=== PATIENT | female | born 1975 | race Caucasian/White ===

== ENCOUNTER 2020-02-05 11:58 | Outpatient (CLI) | payer OTHER, SELFPAY ==
--- NOTE | 2020-02-05 | ECG_ITS ---
Measurements Intervals [place] Rate: 77 P: 59 PA: 145 QRS: 62 QRSD: 83 T: 49 QT: 370 QTc: 420 Interpretive Statements SINUS RHYTHM DELAYED PRECORDIAL R/S TRANSITION MINIMAL Q WAVES- INFERIOR LEADS BORDERLINE ECG Electronically Signed On 02-05-2020 13:21:04 CDT by Jakob Ly D.O.
--- NOTE | ~2020-02-05 | XR_ITS ---
EXAMINATION: XR chest 2V EXAM DATE: 02/05/2020 12:21 INDICATION: Chest pain. TECHNIQUE: Frontal and lateral projections of the chest obtained and reviewed. Comparison is made to prior examination from 07/20/2018. FINDINGS: The lungs are clear. There are no pleural effusions. The cardiomediastinal silhouette is within normal limits. There is no pneumothorax suspected. The bones and soft tissues are unremarkab le. There are cholecystectomy clips. There is no significant interval change. IMPRESSION: No acute cardiopulmonary findings. Reviewed, dictated and finalized at location B.
[2020-02-05 13:26] LABS: Basophils Percent Auto 0.5 % (0.2-1.2); Eosinophils Absolute Auto 0.1 K/mm3 (0-0.3); Eosinophils Percent Auto 1.4 % (0-4.4); Hematocrit 42.5 % (37.0-47.0); Hemoglobin 13.4 g/dL (12.0-15.0); Immature Granulocyte Absolute 0.02 K/mm3 (0.00-0.031); Immature Granulocyte Percent A 0.2 % (0-0.5); Lymphocytes Absolute Auto 2.99 K/mm3 (0.9-3.2); Lymphocytes Percent Auto 34.5 % (18.3-44.2); Mean Corpuscular HGB Conc 31.5 g/dl (32-36); Mean Corpuscular Volume 88.9 fl (80-100); Monocytes Absolute Auto 0.4 K/mm3 (0.1-0.6); Monocytes Percent Auto 4.3 % (2.6-8.5); Neutrophils Absolute Auto 5.1 K/mm3 (1.3-6.7); Neutrophils Percent Auto 59.1 % (45.5-73.1); Platelet Count Result 360 k/mm3 (150-375); Red Blood Count 4.78 M/mm3 (4.2-5.4); Red Cell Distribution Width 13.3 % (11.5-14.5); White Blood Count 8.7 K/mm3 (4.5-10.0)
[2020-02-05 13:38] LABS: Blood Urea Nitrogen 12 mg/dL (7-17); Calcium 10.2 mg/dL (8.4-10.2); Carbon Dioxide 28 mmol/L (22-30); Chloride 102 mmol/L (98-107); Estimated Glomerular Filt Rate > 60; Glucose 91 mg/dL (65-105); Potassium 4.6 mmol/L (3.4-5.0); Sodium 137 mmol/L (137-145)
[2020-02-05 14:09] LABS: Thyroid Stimulating Hormone 0.446 uIU/mL (0.465-4.680)
== END 2020-02-05 11:59 | disposition home or self-care (01) ==
PROVIDERS: PCP Family Medicine; Visit Provider Nurse Practitioner Family
DX: R07.9 Chest pain, unspecified (principal)
CPT/HCPCS: 36415; 71046; 80048; 84443; 85025; 93005

== ENCOUNTER 2020-02-19 09:33 | Outpatient (CLI) | payer OTHER, SELFPAY ==
--- NOTE | 2020-02-19 09:45 | EST_ITS ---
Patient Info Name: Jamee Valentine Age: 44 years : 1975 Gender: Female Ht: 64 in Wt: 231 lbs BSA: 2.23 m2 Exam Date: 02/19/2020 10:20 AM Exam Location: [facility] [place] Stress Patient Status: Outpatient Admit Date: 02/19/2020 Staff Ordering Physician: Carolyne Ferris NP Attending Provider: Carolyne Ferris NP Exercise Technologist: Jana Plata RDCS Exercise Physician: Jakob Ly DO Exam Type: CA stress test treadmill Study Info Indications R94.31 - Abnormal electrocardiogram ECG EKG R07.9 - Chest pain, unspecified A treadmill exercise stress test was performed. Summary 1. 1. Negative Stef exercise stress test for ischemic ST changes by ECG criteria. 2. 2. Reduced functional capacity, achieving 8 METs of workload. 3. 3. Baseline hypertension with hypertensive response to exercise. 4. 4. Appropriate HR response to exercise. 5. 5. Appropriate HR recovery at 1 minute post exercise. 6. 6. No imaging with stress testing. 7. 7. Patient informed of the above results. Protocol: Stef Stress ECG Details Stage: REST Duration (min): 5 min : 42 sec Speed (mph): 0.0 Grade (%): 0 HR (bpm): 87 SBP (mmHg): 141 DBP (mmHg): 83 METS: --- Stage: REST Duration (min): 13 min : 17 sec Speed (mph): 0.0 Grade (%): 0 HR (bpm): 86 SBP (mmHg): 141 DBP (mmHg): 83 METS: --- Stage: STAGE 1 Duration (min): 1 min : 0 sec Speed (mph): 1.7 Grade (%): 10 HR (bpm): 123 SBP (mmHg): 141 DBP (mmHg): 83 METS: --- Stage: STAGE 1 Duration (min): 2 min : 0 sec Speed (mph): 1.7 Grade (%): 10 HR (bpm): 131 SBP (mmHg): 141 DBP (mmHg): 83 METS: --- Stage: STAGE 1 Duration (min): 3 min : 0 sec Speed (mph): 1.7 Grade (%): 10 HR (bpm): 133 SBP (mmHg): 163 DBP (mmHg): 78 METS: --- Stage: STAGE 2 Duration (min): 1 min : 0 sec Speed (mph): 2.5 Grade (%): 12 HR (bpm): 143 SBP (mmHg): 163 DBP (mmHg): 78 METS: --- Stage: STAGE 2 Duration (min): 2 min : 0 sec Speed (mph): 2.5 Grade (%): 12 HR (bpm): 150 SBP (mmHg): 174 DBP (mmHg): 83 METS: --- Stage: STAGE 2 Duration (min): 3 min : 0 sec Speed (mph): 2.5 Grade (%): 12 HR (bpm): 152 SBP (mmHg): 174 DBP (mmHg): 83 METS: --- Stage: STAGE 3 Duration (min): 0 min : 41 sec Speed (mph): 3.4 Grade (%): 14 HR (bpm): 166 SBP (mmHg): 174 DBP (mmHg): 83 METS: --- Stage: RECOVERY Duration (min): 0 min : 18 sec Speed (mph): 1.5 Grade (%): 0 HR (bpm): 165 SBP (mmHg): 197 DBP (mmHg): 88 METS: --- Stage: RECOVERY Duration (min): 1 min : 18 sec Speed (mph): 0.0 Grade (%): 0 HR (bpm): 130 SBP (mmHg): 210 DBP (mmHg): 72 METS: --- Stage: RECOVERY Duration (min): 2 min : 18 sec Speed (mph): 0.0 Grade (%): 0 HR (bpm): 108 SBP (mmHg): 210 DBP (mmHg):
== END 2020-02-19 09:34 | disposition home or self-care (01) ==
LOC: ANHCARD 09:36
PROVIDERS: PCP Family Medicine; Visit Provider Nurse Practitioner Family
DX: R07.9 Chest pain, unspecified (principal); R94.31 Abnormal electrocardiogram [ECG] [EKG]
CPT/HCPCS: 93017

== ENCOUNTER → 2020-06-20 14:40 | Outpatient (CLI) | payer BC, SELFPAY ==
--- NOTE | ~2020-06-20 | XR_ITS ---
EXAMINATION: XR chest 2V EXAM DATE: 06/20/2020 14:52 INDICATION: J98.8 - Other specified respiratory disorders, cp, cough, sob . TECHNIQUE: Frontal and lateral projections of the chest obtained and reviewed. Comparison is made to prior examination from 02/05/2020. FINDINGS: The lungs are clear. There are no pleural effusions. The cardiomediastinal silhouette is within normal limits. There is no pneumothorax suspected. The bones and soft tissues are unremarkab le. IMPRESSION: No acute cardiopulmonary findings. Reviewed, dictated and finalized at location B. ESSING MGR
== END ==
PROVIDERS: PCP Family Medicine; Visit Provider Nurse Practitioner Family
DX: R07.89 Other chest pain (principal); R05 Cough; R06.02 Shortness of breath
CPT/HCPCS: 71046

== ENCOUNTER 2020-08-26 17:38 | Outpatient (CLI) | payer BC, SELFPAY ==
--- NOTE | ~2020-08-26 | CT_ITS ---
EXAMINATION: CTA chest PE protocol DATE: 08/26/2020 18:34 INDICATION: Shortness of breath TECHNIQUE: Computed tomography (CT) pulmonary angiogram of the chest was performed with 100 mL Omnipa que-350 intravenous contrast. Additional 3D reconstructions utilizing coronal maximum intensity proje ction (MIP) were performed. Automated exposure control and iterative reconstruction technique were em ployed. The dose-length product was 958.80 mGy-cm. COMPARISON: None FINDINGS: Good contrast opacification of the pulmonary arteries. There is moderate streak artifact from dense c ontrast in the superior vena cava and right atrium. Mild to moderate scattered respiratory motion art ifact. . This mildly decreases sensitivity in the smaller subsegmental pulmonary arteries. No definit gunnar pulmonary embolism. Diffuse bilateral mosaic attenuation the lungs with mild groundglass opacitie s with small lung volumes suggesting this results from poor inspiratory effort with small subsegmenta l regions of more lucent air trapping related to small airway disease. No septal line thickening to s uggest pulmonary edema. No pleural effusion or pneumothorax. Heart size is normal. No pericardial eff usion. Thoracic aorta is normal in caliber with no dissection. No pathologically enlarged thoracic ly mphadenopathy. Cholecystectomy clips at the gallbladder fossa. Minimal thoracic spondylosis. IMPRESSION: 1. No pulmonary embolism. 2. Mosaic attenuation in the lungs likely related to poor inspiration with subsegmental air trapping related to small airway disease. Reviewed, dictated and finalized at location A. OLOGY TECHNOLOGIST IMPRESSION: 1. No pulmonary embolism. 2. Mosaic attenuation in the lungs likely related to poor inspiration with subs egmental air trapping related to small airway disease.
[2020-08-26 18:05] LABS: Basophils Percent Auto 0.3 % (0.2-1.2); Eosinophils Absolute Auto 0.2 K/mm3 (0-0.3); Eosinophils Percent Auto 1.8 % (0-4.4); Hematocrit 40.1 % (37.0-47.0); Hemoglobin 12.8 g/dL (12.0-15.0); Immature Granulocyte Absolute 0.03 K/mm3 (0.00-0.031); Immature Granulocyte Percent A 0.3 % (0-0.5); Lymphocytes Absolute Auto 3.57 K/mm3 (0.9-3.2); Mean Corpuscular HGB Conc 31.9 g/dl (32-36); Mean Corpuscular Hemoglobin 28.1 pg (26-34); Mean Corpuscular Volume 88.1 fl (80-100); Mean Platelet Volume 8.7 fl (7.4-10.4); Monocytes Absolute Auto 0.5 K/mm3 (0.1-0.6); Monocytes Percent Auto 4.9 % (2.6-8.5); Neutrophils Absolute Auto 5.9 K/mm3 (1.3-6.7); Neutrophils Percent Auto 57.7 % (45.5-73.1); Platelet Count Result 340 k/mm3 (150-375); Red Blood Count 4.55 M/mm3 (4.2-5.4); Red Cell Distribution Width 13.6 % (11.5-14.5); White Blood Count 10.2 K/mm3 (4.5-10.0)
[2020-08-26 18:17] LABS: Alanine Aminotransferase 23 U/L (4-35); Albumin Level 4.2 g/dL (3.5-5.1); Alkaline Phosphatase 38 U/L (38-126); Anion Gap 6 mmol/L (8-16); Aspartate Amino Transferase 24 U/L (14-36); Bilirubin,Total 0.2 mg/dL (0.2-1.3); Blood Urea Nitrogen 9 mg/dL (7-17); Calcium 9.3 mg/dL (8.4-10.2); Carbon Dioxide 29 mmol/L (22-30); Chloride 103 mmol/L (98-107); Estimated Glomerular Filt Rate > 60; Glucose 105 mg/dL (65-105); Potassium 3.9 mmol/L (3.4-5.0); Sodium 138 mmol/L (137-145)
== END 2020-08-26 17:39 | disposition home or self-care (01) ==
PROVIDERS: PCP Family Medicine; Visit Provider Family Medicine
DX: R05 Cough (principal); R06.02 Shortness of breath
CPT/HCPCS: 36415; 71275; 80053; 85025; Q9967

== ENCOUNTER 2020-09-09 09:50 | Outpatient (CLI) | payer BC, SELFPAY ==
--- NOTE | 2020-09-16 12:24 | WPDHOLTEREM ---
Holter/Event Monitor Holter/Event Monitor Date of procedure: 09/09/20 Procedure Type: 48 hour holter monitor Indications: Chest pain Conclusion: 1. 48 hour holter monitor on 09/09/20. 2. Underlying rhythm is sinus rhythm. HR range 61-141 bpm; average HR 87 bpm. 3. There are 3 premature supraventricular complexes. No supraventricular tachycardia. 4. There are 1,145 premature ventricular complexes. No ventricular tachycardia. 5. No sinoatrial or atrioventricular blocks. No significant pauses greater than 2 seconds. 6. Patient reports symptoms of fluttering, shortness of breath, chest heaviness which demonstrate sinus rhythm, HR range 83-121 bpm.
== END 2020-09-09 09:51 | disposition home or self-care (01) ==
PROVIDERS: PCP Family Medicine; Visit Provider Nurse Practitioner Family
DX: R07.89 Other chest pain (principal)
CPT/HCPCS: 93225; 93226

== ENCOUNTER → 2020-09-30 14:02 | Outpatient (CLI) | payer BC, SELFPAY ==
--- NOTE | ~2020-09-30 | US_ITS ---
EXAMINATION: US pelvic complete w TV DATE: 09/30/2020 14:21 INDICATION: Abnormal uterine bleeding. Right lower quadrant pain. Comparison:05/12/2016 TECHNIQUE: Multiple transabdominal sonographic images of the pelvis performed. FINDINGS: The uterus measures 8.7 x 2.3 x 3.1 cm. The endometrial complex measures 2 mm. The right ovary measures 1.5 x 1.4 x 1.7 cm and the left ovary measures 2.5 x 2.4 x 2.2 cm. There ar e small follicles in each ovary.Normal doppler signal in both ovaries. There is no free fluid in the pelvis. There are no abnormal masses seen on either side. IMPRESSION: 1. Normal pelvic ultrasound. Reviewed, dictated and finalized at location A. TRANSPORTATION MANAGER
== END ==
PROVIDERS: Visit Provider Obstetrics & Gynecology Gynecology
DX: N93.8 Other specified abnormal uterine and vaginal bleeding (principal)
CPT/HCPCS: 76830; 76856

== ENCOUNTER 2021-03-04 06:54 | Outpatient (CLI) | payer BC, SELFPAY ==
[2021-03-04 07:40] LABS: Hematocrit 38.8 % (37.0-47.0); Hemoglobin 12.3 g/dL (12.0-15.0); Mean Corpuscular HGB Conc 31.7 g/dl (32-36); Mean Corpuscular Hemoglobin 27.5 pg (26-34); Mean Corpuscular Volume 86.6 fl (80-100); Mean Platelet Volume 9.2 fl (7.4-10.4); Platelet Count Result 341 k/mm3 (150-375); Red Blood Count 4.48 M/mm3 (4.2-5.4); Red Cell Distribution Width 13.4 % (11.5-14.5); White Blood Count 9.1 K/mm3 (4.5-10.0)
[2021-03-04 07:50] LABS: Alanine Aminotransferase 25 U/L (4-35); Albumin Level 4.1 g/dL (3.5-5.1); Alkaline Phosphatase 53 U/L (38-126); Anion Gap 7 mmol/L (8-16); Aspartate Amino Transferase 22 U/L (14-36); Bilirubin,Total 0.4 mg/dL (0.2-1.3); Blood Urea Nitrogen 15 mg/dL (7-17); Calcium 9.2 mg/dL (8.4-10.2); Carbon Dioxide 24 mmol/L (22-30); Chloride 107 mmol/L (98-107); Cholesterol 173 mg/dL (0-200); Estimated Glomerular Filt Rate > 60; Glucose 99 mg/dL (65-110); HDL Direct 47 mg/dL; Sodium 138 mmol/L (137-145); Triglycerides 86 mg/dL (<150)
[2021-03-04 08:02] LABS: LDL Cholesterol Direct 94 mg/dL
[2021-03-04 08:31] LABS: Free T4 Free Thyroxine 0.67 ng/mL (0.78-2.19); Vitamin D 25 Hydroxy 47.5 ng/mL
[2021-03-07 04:26] LABS: Insulin Level Total 24.8 uIU/mL (<=19.6)
== END 2021-03-04 06:55 | disposition home or self-care (01) ==
PROVIDERS: PCP Family Medicine; Visit Provider Nurse Practitioner Family
DX: E28.2 Polycystic ovarian syndrome (principal); Z13.1 Encounter for screening for diabetes mellitus; R03.0 Elevated blood-pressure reading, without diagnosis of hypertension; R79.89 Other specified abnormal findings of blood chemistry; E55.9 Vitamin D deficiency, unspecified; Z13.220 Encounter for screening for lipoid disorders
CPT/HCPCS: 36415; 80053; 80061; 82306; 83525; 84439; 84443; 85027

== ENCOUNTER 2021-04-20 09:45 | Emergency (ER) | payer OTHER, SELFPAY ==
[2021-04-20 09:58] VITALS: BP 134/76; PULSE 86; RESP 16; TEMP 36.4; O2SAT 100
--- NOTE | 2021-04-20 10:49 | ED.URI ---
HPI - URI/Sore Throat General Chief Complaint: Upper Respiratory Infection Stated Complaint: Sore Throat,Ear Pain Time Seen by Provider: 04/20/21 10:26 Source: patient and RN notes reviewed Mode of arrival: ambulatory Limitations: no limitations History of Present Illness HPI Narrative: Patient presents today complaining of a 3-day history of sore throat. Denies congestion, rhinorrhea, postnasal drip. She has been vaccinated against COVID-19. She has been taking Zyrtec without much relief. History of seasonal allergies. States her ragweed allergy is currently bothering her. MD elicited complaint: sore throat Related Data Home Medications Medication Instructions Recorded Confirmed drospirenone (contraceptive) 4 mg 4 mg PO DAILY 09/12/20 04/20/21 (28) tablet methenam 118 mg-m.blue 10 1 tablet PO QID PRN 10/16/20 04/20/21 mg-s.phos 40.8 mg-p.salic 36 mg-hyos capsule omeprazole 40 mg PO DAILY PRN 04/20/21 04/20/21 Allergies Allergy/AdvReac Type Severity Reaction Status Date / Time bupropion [From Wellbutrin] Allergy Intermediate Confusion Verified 03/31/21 14:32 Corticosteroids Allergy Unknown HIVES Verified 03/31/21 14:32 (Glucocorticoids) metronidazole [From Flagyl] Allergy Swelling Verified 04/20/21 10:15 of Lip/Tongue/Throat Review of Systems Review of Systems: CONSTITUTIONAL: Denies body aches, fever, chills, or sweats. EYES: Denies visual changes, redness, or discharge. ENT: Denies rhinorrhea, congestion, or otalgia.+ Sore throat CARDIOVASCULAR: Denies chest pain, palpitations, or edema. RESPIRATORY: Denies cough or dyspnea. GASTROINTESTINAL: Denies abdominal pain, nausea, vomiting, or diarrhea. GENITOURINARY: Denies dysuria or hematuria. SKIN: Denies rash, itching, or wounds. MUSCULOSKELETAL: Denies back pain, joint pain, or myalgia. NEUROLOGIC: Denies headache, numbness, tingling, or weakness. PSYCH: Denies depression or anxiety. [facility] Past Medical History Medical History Allergies Anxiety Asthma BMI greater than 40 Bowel disease Cholecystectomy planned Laparoscopic: 08/01/16 COVID-19 Dyspnea Interstitial cystitis Migraine Morbid obesity PCOS (polycystic ovarian syndrome) Ulnocarpal impaction syndrome Family History Family History Father Hypertension Heart disease Rheumatoid arthritis COPD (chronic obstructive pulmonary disease) Sibling Hypertension Mother Hypertension Heart disease Glioblastoma Other Cerebrovascular accident Diabetes mellitus Family history of allergic disorder Family history of type 2 diabetes mellitus Social History Social History Smoking status: Former smoker Tobacco type: cigarettes Second hand tobacco smoke exposure: Yes Smoking end date: 08/15/10 Alcohol intake: current Alcohol use details: Pt drinks socially. 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 Please see nursing chart for further information. There is no relevant family history pertinent to the presenting complaint Exam Narrative: GENERAL: Well-appearing, well-nourished, and in no acute distress. HEAD: Normocephalic, atraumatic. EYES: EOMI. No redness or drainage. Conjunctivae normal. ENT: Mucous membranes pink and moist. Nares clear. No rhinorrhea. TMs normal bilaterally. Throat normal. Uvula midline. NECK: Normal AROM. Supple. No lymphadenopathy. CHEST: No respiratory distress. Clear to auscultation. HEART: Regular rate and rhythm. No murmur appreci
== END 2021-04-20 11:01 | disposition home or self-care (01) ==
PROVIDERS: Emergency Provider Nurse Practitioner; PCP Family Medicine
DX: J02.9 Acute pharyngitis, unspecified (principal); T78.49XA Other allergy, initial encounter; Z87.891 Personal history of nicotine dependence
CPT/HCPCS: 87081; 87880; 99213; G0463

== ENCOUNTER 2021-06-09 10:05 | Outpatient (CLI) | payer OTHER, SELFPAY ==
--- NOTE | ~2021-06-09 | XR_ITS ---
EXAMINATION: XR hand RT 2V EXAM DATE: 06/09/2021 10:30 INDICATION: M79.644 - Pain In Right Finger(S)/Limited Rom In 1st Digit . TECHNIQUE: Right hand frontal, lateral and oblique projections obtained and reviewed. Correlation is made to contralateral hand same date, right wrist exam from 2012. FINDINGS: Right metacarpal bones are unremarkable. There are no bony erosions identified. There are no acute fractures or dislocations identified. There is no subcutaneous gas. The soft tissue is un remarkable. There are no radiopaque foreign bodies. Joint space is uniform and symmetric. IMPRESSION: 1. Unremarkable XR hand RT 2V exam. Reviewed, dictated and finalized at location B.
--- NOTE | ~2021-06-09 | XR_ITS ---
EXAMINATION: XR hand LT 2V EXAM DATE: 06/09/2021 10:30 INDICATION: M79.644 - Pain in Left Finger(S), Limited Rom In 1st Digit. TECHNIQUE: Frontal and lateral projections of the left hand. Comparison is made to prior examination from 09/04/2012. FINDINGS: There are no bony erosions identified. There are no acute left hand fractures or dislocati ons identified. There is no subcutaneous gas. The soft tissue is unremarkable. There are no radio paque foreign bodies. Joint spaces are uniform and symmetric. IMPRESSION: 1. Unremarkable XR hand LT 2V exam. Reviewed, dictated and finalized at location B.
== END 2021-06-09 10:06 | disposition home or self-care (01) ==
LOC: ANHIMG 10:07
PROVIDERS: PCP Family Medicine; Visit Provider Nurse Practitioner Family
DX: M79.645 Pain in left finger(s) (principal); M79.644 Pain in right finger(s)
CPT/HCPCS: 73120

== ENCOUNTER 2021-06-12 10:53 | Outpatient (CLI) | payer OTHER, SELFPAY ==
--- NOTE | ~2021-06-12 | US_ITS ---
EXAMINATION: US abdomen complete EXAM DATE: 06/12/2021 11:46 INDICATION: R10.10 - Upper abdominal pain, unspecified . TECHNIQUE: Multiple grayscale and Doppler images of the complete abdomen were obtained (by a technolo gist who performed the scan) and subsequently reviewed. Comparison is made to prior examination from 07/14/16 FINDINGS: The abdominal aorta is normal in caliber. Visualized portion IVC is patent. The pancreatic head a nd body are normal in appearance. The pancreatic tail is not visualized. There is echogenic liver parenchyma, hepatic steatosis. There is a heterogeneously hypoechoic lobula r liver lesion anteriorly measuring 2.3 x 2.7 cm, was not identified in 2016. Considerations include hemangioma, adenoma, possibly malignancy. There is no evidence of intrahepatic biliary duct dilation. Portal venous flow was seen in the hepatopedal, normal direction and has normal Doppler waveform. Common bile duct measures 4-5 mm, which is normal. The gallbladder fossa is unremarkable. Right kidney: There is normal contour and echogenicity. It measures 11.4 x 4.2 x 4.4 centimeters. There are no focal renal lesions identified. There is no hydronephrosis. Left kidney: There is normal contour and echogenicity. It measures 12.5 x 4.9 x 6.4 centimeters. T here are no focal renal lesions identified. There is no hydronephrosis. The spleen measures 11.5 centimeters and is morphologically normal. IMPRESSION: 1. Indeterminate liver lesion; recommend MRI for better characterization. 2. Hepatic steatosis. Reviewed, dictated and finalized at location B.
== END 2021-06-12 10:54 | disposition home or self-care (01) ==
LOC: ANHIMG 10:57
PROVIDERS: PCP Family Medicine; Visit Provider Nurse Practitioner Family
DX: R10.10 Upper abdominal pain, unspecified (principal); R10.819 Abdominal tenderness, unspecified site; K76.9 Liver disease, unspecified; K76.0 Fatty (change of) liver, not elsewhere classified
CPT/HCPCS: 76700

== ENCOUNTER → 2021-06-12 15:14 | Outpatient (CLI) | payer OTHER, SELFPAY ==
--- NOTE | ~2021-06-12 | XR_ITS ---
XR abdomen/kub 1V 06/12/2021 15:33 INDICATION: Unspecified abdominal pain TECHNIQUE: KUB COMPARISON: KUB dated 06/13/2013 FINDINGS: Bowel gas pattern is normal. Status post cholecystectomy. There is no evidence of free air, mass, organomegaly, ascites or obstruction. No abnormal calculi are seen. The bones appear intact. Calcifications in the pelvis are believed to be phleboliths. IMPRESSION: 1: No acute abdominal abnormality identified. Reviewed, dictated and finalized at location A.
== END ==
PROVIDERS: Visit Provider Nurse Practitioner Family
DX: R10.10 Upper abdominal pain, unspecified (principal)
CPT/HCPCS: 74018

== ENCOUNTER 2021-06-19 09:58 | Outpatient (CLI) | payer OTHER, SELFPAY ==
[2021-06-19 10:23] LABS: Basophils Percent Auto 0.5 % (0.2-1.2); Eosinophils Absolute Auto 0.2 K/mm3 (0-0.3); Eosinophils Percent Auto 1.9 % (0-4.4); Hematocrit 42.2 % (37.0-47.0); Hemoglobin 13.5 g/dL (12.0-15.0); Immature Granulocyte Absolute 0.03 K/mm3 (0.00-0.031); Immature Granulocyte Percent A 0.4 % (0-0.5); Lymphocytes Absolute Auto 2.78 K/mm3 (0.9-3.2); Lymphocytes Percent Auto 35.1 % (18.3-44.2); Mean Corpuscular Hemoglobin 28.1 pg (26-34); Mean Corpuscular Volume 87.9 fl (80-100); Mean Platelet Volume 8.6 fl (7.4-10.4); Monocytes Absolute Auto 0.3 K/mm3 (0.1-0.6); Monocytes Percent Auto 3.9 % (2.6-8.5); Neutrophils Absolute Auto 4.6 K/mm3 (1.3-6.7); Neutrophils Percent Auto 58.2 % (45.5-73.1); Platelet Count Result 362 k/mm3 (150-375); Red Cell Distribution Width 13.4 % (11.5-14.5); White Blood Count 7.9 K/mm3 (4.5-10.0)
[2021-06-19 10:44] LABS: Hemoglobin A1C 5.6 % (<5.7)
[2021-06-19 10:51] LABS: Alanine Aminotransferase 32 U/L (4-35); Albumin Level 4.9 g/dL (3.5-5.1); Alkaline Phosphatase 40 U/L (38-126); Amylase 77 U/L (30-110); Anion Gap 9 mmol/L (8-16); Aspartate Amino Transferase 27 U/L (14-36); Bilirubin,Total 0.5 mg/dL (0.2-1.3); Blood Urea Nitrogen 15 mg/dL (7-17); Calcium 9.9 mg/dL (8.4-10.2); Carbon Dioxide 25 mmol/L (22-30); Chloride 105 mmol/L (98-107); Cholesterol 180 mg/dL (0-200); Estimated Glomerular Filt Rate > 60; Glucose 103 mg/dL (65-110); HDL Direct 49 mg/dL; Lipase 194 U/L (23-300); Potassium 4.2 mmol/L (3.4-5.0); Sodium 139 mmol/L (137-145); Triglycerides 113 mg/dL (<150)
[2021-06-19 11:02] LABS: LDL Cholesterol Direct 99 mg/dL
[2021-06-19 11:12] LABS: Free T4 Free Thyroxine 0.82 ng/mL (0.78-2.19); Vitamin D 25 Hydroxy 51.7 ng/mL
[2021-06-23 16:00] LABS: Thyrotropin Receptor Antibody <1.00 IU/L (<=2.00)
[2021-06-24 03:54] LABS: Insulin Level Total 24.4 uIU/mL (<=19.6); Thyroid Peroxidase Antibodies <1 IU/mL (<9)
== END 2021-06-19 09:59 | disposition home or self-care (01) ==
PROVIDERS: Visit Provider Nurse Practitioner Family
DX: Z13.1 Encounter for screening for diabetes mellitus (principal); R10.10 Upper abdominal pain, unspecified; R10.819 Abdominal tenderness, unspecified site; K76.0 Fatty (change of) liver, not elsewhere classified; E07.89 Other specified disorders of thyroid; R73.01 Impaired fasting glucose
CPT/HCPCS: 36415; 80053; 80061; 82150; 82306; 83036; 83519; 83525; 83690; 84439; 84443; 85025; 86376

== ENCOUNTER → 2021-06-23 10:47 | Outpatient (CLI) | payer OTHER, SELFPAY ==
--- NOTE | ~2021-06-23 | MR_ITS ---
EXAMINATION: MR abdomen wo/w con INDICATION: Liver disease, unspecified TECHNIQUE: Coronal SSFSE ARC, WATER:coronal LAVA-FLEX, Coronal 2D FIESTA FatSat, Axial SSFSE BH ARC, Axial 3D DualEcho BH, Axial SSFSE-IR, Axial DWI b=500, Axial 2D FIESTA FatSat, pre and dynamic postco ntrast Axial LAVA ARC, postcontrast Coronal In and Opposed phase LAVA FLEX COMPARISON: Ultrasound, 06/12/2021 CONTRAST: Multihance, 20 cc FINDINGS: There is a 2.7 x 2.5 cm T1 and T2 isointense mass of the right hepatic lobe which demonstra jane arterial enhancement with gradual fading of contrast upper breast is post contrast images. There is a 5 mm area in segment six of the right hepatic lobe with similar signal characteristics. There is loss of hepatic parenchymal signal on opposed phase imaging, consistent with hepatic steatosis. The spleen, pancreas, and adrenal glands are normal. The kidneys are unremarkable. There are no pathologi austyn enlarged abdominal lymph nodes. No dilated loops of bowel are evident. The gallbladder is surgi austyn absent. IMPRESSION: 1. Liver lesions with MR features suggestive of focal nodular hyperplasia or possibly adenoma or flas h filling hemangioma. Malignancy is considered less likely. Follow-up CT or MRI without and with cont rast in 6-12 months is recommended. 2. Diffuse hepatic steatosis. Reviewed, dictated and finalized at location B. CUTTER IMPRESSION: 1. Liver lesions with MR features suggestive of focal nodular hyperplasia or po ssibly adenoma or flash filling hemangioma. Malignancy is considered less likel y. Follow-up CT or MRI without and with contrast in 6-12 months is recommended. 2. Diffuse hepatic steatosis.
[2021-06-23 11:17] LABS: Estimated Glomerular Filt Rate > 60
== END ==
PROVIDERS: PCP Family Medicine; Visit Provider Nurse Practitioner Family
DX: K76.0 Fatty (change of) liver, not elsewhere classified (principal); K76.9 Liver disease, unspecified
CPT/HCPCS: 74183; A9577

== ENCOUNTER 2021-07-02 10:15 | Outpatient (CLI) | payer OTHER, SELFPAY ==
--- NOTE | 2021-07-02 11:00 | NEURO_ITS ---
Impression: # Complains of numbness of hands. # Left moderate Carpal Tunnel Syndrome. # Right evolving Carpal Tunnel Syndrome. # No ulnar neuropathy. # Normal needle/EMG exam. Nerve Conduction Studies Anti Sensory Summary Table Stim Site NR Peak (ms) P-T Amp (?V) Site1 Site2 Delta-P (ms) Dist (cm) Surya (m/s) Left Median Anti Sensory (2-3nd Digit) Wrist 3.1 62.0 Wrist 2-3nd Digit 3.1 14.0 45 Wrist 3.1 96.7 Wrist 2-3nd Digit 3.1 14.0 45 Right Median Anti Sensory (2-3nd Digit) Wrist 3.4 39.3 Wrist 2-3nd Digit 3.4 14.0 41 Wrist 3.3 54.0 Wrist 2-3nd Digit 3.4 14.0 41 Left Radial Anti Sensory (Base 1st Digit) Wrist 2.9 95.8 Wrist Base 1st Digit 2.9 0.0 Right Radial Anti Sensory (Base 1st Digit) Wrist 2.0 31.4 Wrist Base 1st Digit 2.0 0.0 Left Ulnar Anti Sensory (5th Digit) Wrist 2.3 88.0 Wrist 5th Digit 2.3 14.0 61 Right Ulnar Anti Sensory (5th Digit) Wrist 2.1 53.7 Wrist 5th Digit 2.1 14.0 67 Motor Summary Table Stim Site NR Onset (ms) O-P Amp (mV) Site1 Site2 Delta-0 (ms) Dist (cm) Surya (m/s) Left Median Motor (Abd Poll Brev) Wrist 4.5 2.6 Elbow Wrist 4.6 26.0 57 Elbow 9.1 3.9 Right Median Motor (Abd Poll Brev) Wrist 3.4 3.5 Elbow Wrist 4.0 24.0 60 Elbow 7.4 2.3 Left Ulnar Motor (Abd Dig Minimi) Wrist 2.2 4.5 A Elbow Wrist 4.1 25.0 61 A Elbow 6.3 3.6 Right Ulnar Motor (Abd Dig Minimi) Wrist 2.1 5.1 A Elbow Wrist 4.2 25.0 60 A Elbow 6.3 4.5 F Wave Studies NR F-Lat (ms) L-R F-Lat (ms) Left Median (Mrkrs) (Abd Poll Brev) 25.94 0.07 Right Median (Mrkrs) (Abd Poll Brev) 25.86 0.07 Left Ulnar (Mrkrs) (Abd Dig Min) 25.39 0.06 Right Ulnar (Mrkrs) (Abd Dig Min) 25.45 0.06 EMG Side Muscle Nerve Root Ins Act Fibs Amp Dur Recrt Comment Right 1stDorInt Ulnar C8-T1 Nml Nml Nml Nml Nml Right Ext Indicis Radial (Post Int) C7-8 Nml Nml Nml Nml Nml Right Ext Digitorum Radial (Post Int) C7-8 Nml Nml Nml Nml Nml Right BrachioRad Radial C5-6 Nml Nml Nml Nml Nml Right PronatorTeres Median C6-7 Nml Nml Nml Nml Nml Right Abd Poll Brev Median C8-T1 Nml Nml Nml Nml Nml Left 1stDorInt Ulnar C8-T1 Nml Nml Nml Nml Nml Left Ext Indicis Radial (Post Int) C7-8 Nml Nml Nml Nml Nml Left Ext Digitorum Radial (Post Int) C7-8 Nml Nml Nml Nml Nml Left BrachioRad Radial C5-6 Nml Nml Nml Nml Nml Left PronatorTeres Median C6-7 Nml Nml Nml Nml Nml Left Abd Poll Brev Median C8-T1 Nml Nml Nml Nml Nml Right Abd Poll Long Radial (Post Int) C7-8 Nml Nml Nml Nml Nml Left Abd Poll Long Radial (Post Int) C7-8 Nml Nml Nml Nml Nml MTDD
== END 2021-07-02 10:16 | disposition home or self-care (01) ==
LOC: ANHNEURO 10:22
PROVIDERS: PCP Family Medicine; Visit Provider Nurse Practitioner Family
DX: G56.03 Carpal tunnel syndrome, bilateral upper limbs (principal)
CPT/HCPCS: 95886; 95911

== ENCOUNTER 2021-09-14 12:03 | Outpatient (CLI) | payer OTHER, SELFPAY ==
--- NOTE | ~2021-09-14 | US_ITS ---
EXAMINATION: US venous doppler [facility] DATE: 09/14/2021 12:32 INDICATION: Left lower limb pain TECHNIQUE: Posada scale images without and with compression and Doppler images of the left lower extrem ity veins were obtained. COMPARISON: None FINDINGS: The left common femoral vein, profunda femoral vein, femoral vein, popliteal vein, peroneal trunk, posterior tibial veins, and greater saphenous vein are patent. IMPRESSION: 1. Patent left lower extremity veins. No evidence of deep venous thrombosis. Reviewed, dictated and finalized at location B. APEUTIC MENTOR
== END 2021-09-14 12:04 | disposition home or self-care (01) ==
LOC: ANHIMG 12:09
PROVIDERS: PCP Family Medicine; Visit Provider Family Medicine
DX: M79.605 Pain in left leg (principal)
CPT/HCPCS: 93971

== ENCOUNTER 2021-09-20 18:45 | Emergency (ER) | payer OTHER, SELFPAY ==
[2021-09-20] VITALS (11 sets, daily range): BP systolic 127–154; BP diastolic 79–106; PULSE 89–102; RESP 16–17; TEMP 36.1; O2SAT 99–100
--- NOTE | ~2021-09-20 | CT_ITS ---
EXAMINATION: CT abdomen pelvis w con EXAM DATE: 09/20/2021 22:45 INDICATION: RLQ pain . TECHNIQUE: Spiral CT of the abdomen and pelvis was performed following intravenous injection of 100 m L Omnipaque 350. Axial, coronal and sagittal images of the abdomen and pelvis were reviewed. The do se-length product (DLP) for this examination was 1458.34 mGy-cm. The exposure was tailored according to patient size (auto mA exposure control), and iterative reconstruction (ASIR) was used as addition al dose reduction technique. Comparison is made to prior examination from 07/30/2018. FINDINGS: Vague approximately 3 cm region of increased density left liver lobe medial segment, previo usly evaluated by MRI examination, correlate with that report. This was favored to be benign histolog y but follow-up was recommended. There are cholecystectomy clips. Spleen, adrenal glands, pancreas a re unremarkable. Portal and splenic veins are patent. Kidneys enhance symmetrically. There is no h ydronephrosis. The uterus and ovaries are unremarkable, no adnexal mass. The bladder is unremarkab le. There is no retroperitoneal or pelvic lymphadenopathy. There are no findings to suggest appendicitis. The stomach and small bowel are unremarkable. There is expected amount of colonic stool. No free intraperitoneal gas. The heart is normal in size. T here are no pericardial or pleural effusions. The lung bases are unremarkable. The bones are unrema rkable. Chronic L5 spondylolysis without spondylolisthesis. IMPRESSION: 1. No acute intra-abdominal findings. 2. Liver mass like region, benign histology favored on recent MRI but follow-up was recommended. 3. L5 spondylolysis. Reviewed, dictated and finalized at location B. APPLICATION DEVELOPER IMPRESSION: 1. No acute intra-abdominal findings. 2. Liver mass like region, benign histology favored on recent MRI but follow-u p was recommended. 3. L5 spondylolysis.
[2021-09-20] MEDS: ONDANSETRON INJ 4 MG/2 ML VIAL IV PUSH (21:43)
[2021-09-20 21:47] LABS: Basophils Absolute Auto 0.1 K/mm3 (0.0-0.1); Basophils Percent Auto 0.4 % (0.2-1.2); Eosinophils Absolute Auto 0.2 K/mm3 (0-0.3); Eosinophils Percent Auto 1.2 % (0-4.4); Hematocrit 41.3 % (37.0-47.0); Hemoglobin 13.3 g/dL (12.0-15.0); Immature Granulocyte Absolute 0.08 K/mm3 (0.00-0.031); Immature Granulocyte Percent A 0.6 % (0-0.5); Lymphocytes Absolute Auto 4.49 K/mm3 (0.9-3.2); Lymphocytes Percent Auto 32.5 % (18.3-44.2); Mean Corpuscular HGB Conc 32.2 g/dl (32-36); Mean Corpuscular Hemoglobin 28.5 pg (26-34); Mean Corpuscular Volume 88.4 fl (80-100); Monocytes Absolute Auto 0.6 K/mm3 (0.1-0.6); Monocytes Percent Auto 4.6 % (2.6-8.5); Neutrophils Absolute Auto 8.4 K/mm3 (1.3-6.7); Neutrophils Percent Auto 60.7 % (45.5-73.1); Platelet Count Result 353 k/mm3 (150-375); Red Blood Count 4.67 M/mm3 (4.2-5.4); White Blood Count 13.8 K/mm3 (4.5-10.0)
[2021-09-20 21:51] LABS: Add Urine Microscopic? YES; Appearance Urine Cloudy (Clear); Bacteria Urine Trace /hpf; Bilirubin Urine Negative (Negative); Blood Urine Negative (Negative); Color Urine Yellow (Yellow); Glucose Urine UA Negative (Negative); Ketones Urine Negative (Negative); Leukocyte Esterase Ur Negative LEU/UL (Negative); Mucus Urine Rare /lpf; Nitrate Urine Negative (Negative); Protein Urine Negative (Negative); Specific Grav Ur 1.012 (1.001-1.035); Squamous Epithelial Cell Urine Many /hpf (Few); Urobilinogen Urine Negative mg/dL (<2.0); WBC Urine 0-3 /hpf
--- NOTE | 2021-09-20 21:51 | ED.ABDPAIN ---
HPI - Abdominal Pain General Chief Complaint: Abdominal Pain Stated Complaint: abd pain Time Seen by Provider: 09/20/21 21:28 Source: patient and RN notes reviewed Mode of arrival: ambulatory History of Present Illness HPI narrative: 46-year-old female presenting to the emergency department for evaluation of right lower quadrant pain. Patient states that approximately 2 PM she did develop some right-sided abdominal pain. Patient states over the course of the day the pain has lowered and she indicates her right lower quadrant. Patient does have prior history of irritable bowels and does have history of prior cholecystectomy done in July 2016 Related Data Home Medications Medication Instructions Recorded Confirmed drospirenone (contraceptive) 4 mg 4 mg PO DAILY 09/12/20 08/10/21 (28) tablet methenam 118 mg-m.blue 10 1 tablet PO QID PRN 10/16/20 08/10/21 mg-s.phos 40.8 mg-p.salic 36 mg-hyos capsule omeprazole 40 mg PO DAILY PRN 04/20/21 08/10/21 Allergies Allergy/AdvReac Type Severity Reaction Status Date / Time bupropion [From Wellbutrin] Allergy Intermediate Confusion Verified 09/14/21 10:38 Corticosteroids Allergy Unknown HIVES Verified 09/14/21 10:38 (Glucocorticoids) metronidazole [From Flagyl] Allergy Swelling Verified 09/14/21 10:38 of Lip/Tongue/Throat Review of Systems Review of Systems: CONSTITUTIONAL: Denies fever, chills, or sweats. EYES: Denies visual changes, redness, or discharge. ENT: Denies rhinorrhea, congestion, sore throat, or otalgia. CARDIOVASCULAR: Denies chest pain, palpitations, or edema. RESPIRATORY: Denies cough or dyspnea. GASTROINTESTINAL: Right lower quadrant pain with associated nausea without vomiting. GENITOURINARY: Denies dysuria or hematuria. SKIN: Denies rash or itching. MUSCULOSKELETAL: Denies back pain, joint pain, or myalgia. NEUROLOGIC: Denies headache, numbness, or weakness. PSYCHIATRIC: Denies anxiety or depression. [facility] Past Medical History Medical History (Updated 09/22/21 @ 04:08 by Mason Greco MD) Allergies Anxiety Asthma BMI greater than 40 Bowel disease Cholecystectomy planned Laparoscopic: 08/01/16 COVID-19 Dyspnea Interstitial cystitis Leg pain, left Migraine Morbid obesity PCOS (polycystic ovarian syndrome) Trigger thumb Ulnocarpal impaction syndrome Family History Family History Father Hypertension Heart disease Rheumatoid arthritis COPD (chronic obstructive pulmonary disease) Sibling Hypertension Mother Hypertension Heart disease Glioblastoma Other Cerebrovascular accident Diabetes mellitus Family history of allergic disorder Family history of type 2 diabetes mellitus Social History Social History Tobacco type: cigarettes Second hand tobacco smoke exposure: Yes Smoking end date: 08/15/10 Alcohol intake: current Alcohol use details: Pt drinks socially. Substance use: never Substance use type: does not use Additional occupation/education comments: Realtor Gender identity (if verbalized by the patient): Female Exam Narrative: APPEARANCE: Well appearing, no pain, no distress, well-nourished. HEAD: normocephalic, atraumatic. NECK: Supple. No adenopathy, no masses. RESPIRATORY: Airway patent, respirations nonlabored. Clear to auscultation bilaterally, no rales, rhonchi, wheezing. CARDIOVASCULAR: Regular rate and rhythm without murmurs rubs or gallops. ABDOMINAL: Normal bowel sounds, right lower quadrant tenderness to palpation. MUSCULOSKELETAL: Moves all extremities. Strength/ROM intact, No edema, No calf tenderness. NEURO: Alert. Cranial nerves II through XII intact. SKIN: Warm, dry. Normal Color PSYCHIATRIC: Normal affect/mood. Course Course Emergency Course: Patient was updated on the results of her imaging and her labs. All question concerns we
[2021-09-20 22:28] LABS: Lactic Acid Reflex 1.4 mmol/L (0.7-2.1)
[2021-09-20 22:29] LABS: Alanine Aminotransferase 34 U/L (4-35); Albumin Level 4.4 g/dL (3.5-5.1); Alkaline Phosphatase 50 U/L (38-126); Anion Gap 6 mmol/L (8-16); Aspartate Amino Transferase 25 U/L (14-36); Bilirubin,Total 0.3 mg/dL (0.2-1.3); Blood Urea Nitrogen 15 mg/dL (7-17); Calcium 9.5 mg/dL (8.4-10.2); Carbon Dioxide 25 mmol/L (22-30); Chloride 106 mmol/L (98-107); Estimated CRCL calculation 107 ml/min; Estimated Glomerular Filt Rate > 60; Glucose 96 mg/dL (65-110); Lipase 198 U/L (23-300); Sodium 137 mmol/L (137-145)
--- NOTE | 2021-09-20 22:35 | PC.NURSE ---
Patient taken to ct.
[2021-09-21 00:16] VITALS: BP 104/67; PULSE 76; RESP 17; TEMP 36.8; O2SAT 100
== END 2021-09-21 00:19 | disposition home or self-care (01) ==
PROVIDERS: Emergency Provider Emergency Medicine; PCP Family Medicine
DX: R10.31 Right lower quadrant pain (principal); J45.909 Unspecified asthma, uncomplicated; Z86.16 Personal history of COVID-19; E28.2 Polycystic ovarian syndrome; F41.9 Anxiety disorder, unspecified; E66.01 Morbid (severe) obesity due to excess calories; Z68.41 Body mass index [BMI] 40.0-44.9, adult; Z87.891 Personal history of nicotine dependence; Z77.22 Contact with and (suspected) exposure to environmental tobacco smoke (acute) (chronic); M43.06 Spondylolysis, lumbar region; R16.0 Hepatomegaly, not elsewhere classified
CPT/HCPCS: 36415; 74177; 80053; 81001; 81025; 83605; 83690; 85025; 96374; 99284; J2405; Q9967

== ENCOUNTER → 2021-09-23 08:16 | Outpatient (CLI) | payer OTHER, SELFPAY ==
[2021-09-23 16:42] LABS: SARS-CoV-2 RNA PCR Negative
== END ==
PROVIDERS: PCP Family Medicine; Visit Provider Nurse Practitioner Family
DX: R68.89 Other general symptoms and signs (principal); Z20.822 Contact with and (suspected) exposure to COVID-19
CPT/HCPCS: C9803; U0003; U0005

== ENCOUNTER 2022-03-05 11:17 | Emergency (ER) | payer OTHER, SELFPAY ==
[2022-03-05 11:39] VITALS: BP 129/75; PULSE 84; RESP 18; TEMP 36.2; O2SAT 100
--- NOTE | 2022-03-05 11:39 | ED.SKABFB ---
HPI - Skin/Abscess/Foreign Bdy General Chief complaint: Skin/Abscess/Foreign Body Stated complaint: insect bite Time Seen by Provider: 03/05/22 11:40 Source: patient, RN notes reviewed and old records reviewed Mode of arrival: ambulatory Limitations: no limitations History of Present Illness HPI narrative: 46-year-old female presents to the [facility] for insect bites to the upper left chest. Seen PCM yesterday and prescribed Doxy and prednisone. States that the redness has gotten a little bit bigger with 2 streaks of redness and continues to have swollen left axially lymph node. Patient reports that she believes she was bit on Tuesday, 2 days ago. Onset (ago): day(s) (2) Related Data Home Medications Medication Instructions Recorded Confirmed albuterol sulfate 90 mcg/actuation 1 inh inhalation DIRECTED 03/05/22 03/05/22 aerosol inhaler amlodipine 5 mg tablet 5 mg DAILY 03/05/22 03/05/22 escitalopram oxalate 20 mg tablet 20 mg DAILY 03/05/22 03/05/22 montelukast 10 mg tablet 10 mg DAILY 03/05/22 03/05/22 omeprazole 20 mg capsule,delayed 20 mg BID 03/05/22 03/05/22 release prednisone 10 mg tablet 10 mg DIRECTED 03/05/22 03/05/22 Allergies Allergy/AdvReac Type Severity Reaction Status Date / Time bupropion [From Wellbutrin] Allergy Intermediate Confusion Verified 03/05/22 12:04 Corticosteroids Allergy Unknown HIVES Verified 03/05/22 12:04 (Glucocorticoids) metronidazole [From Flagyl] Allergy Swelling Verified 03/05/22 12:04 of Lip/Tongue/Throat Review of Systems Review of Systems: All systems reviewed & are unremarkable except as noted in HPI and below Constitutional: Constitutional: Reports no additional constitutional complaints, Denies chills and Denies fever(s) Eyes: Eyes: Reports no additional eye complaints ENT: Reports system reviewed and no additional complaints, except as documented Cardiovascular: Cardiovascular: Reports no additional cardiovascular complaints Respiratory: Respiratory: Reports no additional respiratory complaints Gastrointestinal: Gastrointestinal: Reports no additional gastrointestinal complaints Musculoskeletal: Musculoskeletal: Reports no additional musculoskeletal complaints Integumentary/Breasts: Skin/Breast: Reports as per HPI and Reports erythema (Left upper chest) Neurologic: Reports system reviewed and no additional complaints, except as documented Psychiatric: Psychiatric: Reports no additional psychiatric complaints Allergic/Immunologic: Allergic/Immunologic: Reports no additional allergic/immunologic complaints [facility] Past Medical History Medical History Allergies Anxiety Asthma BMI greater than 40 Bowel disease Celiac disease Cholecystectomy planned Laparoscopic: 08/01/16 COVID-19 Dyspnea Interstitial cystitis Leg pain, left Migraine Morbid obesity PCOS (polycystic ovarian syndrome) Serous otitis media Trigger thumb Ulnocarpal impaction syndrome Family History Family History Father Hypertension Heart disease Rheumatoid arthritis COPD (chronic obstructive pulmonary disease) Sibling Hypertension Mother Hypertension Heart disease Glioblastoma Other Cerebrovascular accident Diabetes mellitus Family history of allergic disorder Family history of type 2 diabetes mellitus Social History Social History Smoking status: Former smoker Tobacco type: cigarettes Second hand tobacco smoke exposure: Yes Smoking end date: 08/15/10 Alcohol intake: current Alcohol use details: Pt drinks socially. Substance use: never Substance use type: does not use Additional occupation/education comments: Realtor Gender identity (if verbalized by the patient): Female Comments At the time of my signature, I reviewed and agree with the nursing
== END 2022-03-05 12:11 | disposition home or self-care (01) ==
PROVIDERS: Emergency Provider Nurse Practitioner; PCP Family Medicine
DX: L03.313 Cellulitis of chest wall (principal); S20.362A Insect bite (nonvenomous) of left front wall of thorax, initial encounter; W57.XXXA Bitten or stung by nonvenomous insect and other nonvenomous arthropods, initial encounter; Z87.891 Personal history of nicotine dependence; J45.909 Unspecified asthma, uncomplicated; Z86.16 Personal history of COVID-19; E66.01 Morbid (severe) obesity due to excess calories; Z68.41 Body mass index [BMI] 40.0-44.9, adult; E28.2 Polycystic ovarian syndrome
CPT/HCPCS: 99213; G0463

== ENCOUNTER 2022-07-29 10:01 | Emergency (ER) | payer OTHER, SELFPAY ==
--- NOTE | 2022-07-29 10:03 | ED.URI ---
HPI - URI/Sore Throat General Chief Complaint: Upper Respiratory Infection Stated Complaint: sore throat/ear pain Time Seen by Provider: 07/29/22 10:10 Source: patient, RN notes reviewed and old records reviewed Mode of arrival: ambulatory Limitations: no limitations History of Present Illness HPI Narrative: 47-year-old female presents to the [facility] with complaints of sore throat and ear pain Since yesterday. has taken Sudafed and Benadryl without relief. States that she can not use Flonase or the behind the counter Sudafed. Explained to patient that we do not have any Rapid strep, we can send off for culture and if it comes back positive we will call in antibiotics. Patient tried calling her primary care provider, received a return call and they state they have the rapids in office. Denies fevers. Denies cough. No nasal congestion or rhinorrhea. MD elicited complaint: sore throat Related Data Home Medications Medication Instructions Recorded Confirmed albuterol sulfate 90 mcg/actuation 1 inh inhalation DIRECTED 03/05/22 07/29/22 aerosol inhaler omeprazole 20 mg capsule,delayed 20 mg PRN PRN Heartburn 03/05/22 03/24/22 release Allergies Allergy/AdvReac Type Severity Reaction Status Date / Time bupropion [From Wellbutrin] Allergy Intermediate Confusion Verified 07/29/22 10:13 Corticosteroids Allergy Unknown HIVES Verified 07/29/22 10:13 (Glucocorticoids) metronidazole [From Flagyl] Allergy Swelling Verified 07/29/22 10:13 of Lip/Tongue/Throat Review of Systems Review of Systems: All systems reviewed & are unremarkable except as noted in HPI and below Constitutional: Constitutional: Reports no additional constitutional complaints Eyes: Eyes: Reports no additional eye complaints ENT: Reports as per HPI, Reports otalgia and Reports sore throat Cardiovascular: Cardiovascular: Reports no additional cardiovascular complaints, Denies chest pain and Denies dyspnea Respiratory: Respiratory: Reports no additional respiratory complaints, Denies chest congestion, Denies cough and Denies dyspnea Gastrointestinal: Gastrointestinal: Reports no additional gastrointestinal complaints, Denies abdominal pain, Denies nausea and Denies vomiting Musculoskeletal: Musculoskeletal: Reports no additional musculoskeletal complaints Integumentary/Breasts: Skin/Breast: Reports system reviewed and no additional complaints, except as docu Neurologic: Reports system reviewed and no additional complaints, except as documented Psychiatric: Psychiatric: Reports no additional psychiatric complaints Allergic/Immunologic: Allergic/Immunologic: Reports no additional allergic/immunologic complaints [facility] Past Medical History Medical History Allergies Anxiety Asthma BMI greater than 40 Bowel disease Celiac disease Cholecystectomy planned Laparoscopic: 08/01/16 COVID-19 Dyspnea Interstitial cystitis Leg pain, left Migraine Morbid obesity PCOS (polycystic ovarian syndrome) Serous otitis media Trigger thumb Ulnocarpal impaction syndrome Family History Family History Father Hypertension Heart disease Rheumatoid arthritis COPD (chronic obstructive pulmonary disease) Sibling Hypertension Mother Hypertension Heart disease Glioblastoma Other Cerebrovascular accident Diabetes mellitus Family history of allergic disorder Family history of type 2 diabetes mellitus Social History Social History Smoking status: Former smoker Tobacco type: cigarettes Second hand tobacco smoke exposure: Yes Smoking end date: 08/15/10 Alcohol intake: current Alcohol use details: Pt drinks socially. Substance use: never Substance use type: does not use Additional occupation/education comments: Realtor Gender identity
[2022-07-29 10:12] VITALS: BP 123/82; PULSE 84; RESP 18; TEMP 36.9; O2SAT 100
--- NOTE | 2022-07-29 10:25 | PC.NURSE ---
Pt on the phone with primary care office who states they do have rapid strep testing in stock. Pt prefers to report to PCP for rapid strep testing as this clinic only has send out culture resting, declined culture testing at this time.
== END 2022-07-29 10:29 | disposition home or self-care (01) ==
PROVIDERS: Emergency Provider Nurse Practitioner; PCP Family Medicine
DX: J02.9 Acute pharyngitis, unspecified (principal); H92.09 Otalgia, unspecified ear; J45.909 Unspecified asthma, uncomplicated; Z86.16 Personal history of COVID-19; E28.2 Polycystic ovarian syndrome; E66.01 Morbid (severe) obesity due to excess calories; Z68.41 Body mass index [BMI] 40.0-44.9, adult; Z87.891 Personal history of nicotine dependence
CPT/HCPCS: 99211; G0463

== ENCOUNTER 2022-08-05 16:21 | Outpatient (CLI) | payer OTHER, SELFPAY ==
--- NOTE | ~2022-08-05 | XR_ITS ---
XR chest 2V DATE: 08/05/2022 16:36 INDICATION: Chronic cough. Hypertension. History of asthma. TECHNIQUE: PA and lateral views COMPARISON: 08/26/2020 CTA chest 06/20/2022 chest FINDINGS: Normal heart size. No hilar or mediastinal enlargement. No pulmonary infiltrate or consolid ation, pleural effusion or pulmonary vascular congestion or pneumothorax. IMPRESSION: No active cardiopulmonary disease Reviewed, dictated and finalized at location A. SKINNER
== END 2022-08-05 16:22 | disposition home or self-care (01) ==
LOC: ANHIMG 16:24
PROVIDERS: PCP Family Medicine; Visit Provider Nurse Practitioner Family
DX: R05.3 Chronic cough (principal)
CPT/HCPCS: 71046

== ENCOUNTER 2022-11-03 08:04 | Outpatient (CLI) | payer OTHER, SELFPAY ==
[2022-11-03 08:44] LABS: Basophils Percent Auto 0.5 % (0.2-1.2); Eosinophils Absolute Auto 0.2 K/mm3 (0-0.3); Eosinophils Percent Auto 2.1 % (0-4.4); Hematocrit 43.1 % (37.0-47.0); Hemoglobin 13.7 g/dL (12.0-15.0); Immature Granulocyte Absolute 0.04 K/mm3 (0.00-0.031); Immature Granulocyte Percent A 0.5 % (0-0.5); Lymphocytes Absolute Auto 3.11 K/mm3 (0.9-3.2); Lymphocytes Percent Auto 36.2 % (18.3-44.2); Mean Corpuscular HGB Conc 31.8 g/dl (32-36); Mean Corpuscular Hemoglobin 28.3 pg (26-34); Mean Platelet Volume 9.6 fl (7.4-10.4); Monocytes Absolute Auto 0.4 K/mm3 (0.1-0.6); Monocytes Percent Auto 4.5 % (2.6-8.5); Neutrophils Absolute Auto 4.8 K/mm3 (1.3-6.7); Neutrophils Percent Auto 56.2 % (45.5-73.1); Platelet Count Result 351 k/mm3 (150-375); Red Blood Count 4.84 M/mm3 (4.2-5.4); Red Cell Distribution Width 13.5 % (11.5-14.5); White Blood Count 8.6 K/mm3 (4.5-10.0)
[2022-11-03 09:08] LABS: Hemoglobin A1C 5.3 % (<5.7)
[2022-11-03 09:12] LABS: Alanine Aminotransferase 51 U/L (6-35); Albumin Level 4.7 g/dL (3.5-5.1); Alkaline Phosphatase 36 U/L (38-126); Anion Gap 8 mmol/L (8-16); Aspartate Amino Transferase 36 U/L (14-36); Bilirubin,Total 0.6 mg/dL (0.2-1.3); Blood Urea Nitrogen 15 mg/dL (7-17); Calcium 9.5 mg/dL (8.4-10.2); Carbon Dioxide 29 mmol/L (22-30); Chloride 103 mmol/L (98-107); Cholesterol 159 mg/dL (0-200); Estimated Glomerular Filt Rate > 60; Glucose 102 mg/dL (65-110); HDL Direct 37 mg/dL; Sodium 140 mmol/L (137-145); Triglycerides 134 mg/dL (<150)
[2022-11-03 09:22] LABS: LDL Cholesterol Direct 85 mg/dL
== END 2022-11-03 08:05 | disposition home or self-care (01) ==
LOC: ANHLAB 08:06
PROVIDERS: PCP Family Medicine; Visit Provider Internal Medicine Cardiovascular Disease
DX: I10 Essential (primary) hypertension (principal)
CPT/HCPCS: 36415; 80053; 80061; 83036; 84443; 85025

== ENCOUNTER → 2022-11-29 12:59 | Outpatient (CLI) | payer OTHER, SELFPAY ==
--- NOTE | ~2022-11-29 | MM_ITS ---
EXAMINATION: MM screening [facility] BI w nuris HISTORY: Screening mammogram TECHNIQUE: Craniocaudal and mediolateral oblique 3-D tomosynthesis images were obtained and synthetic 2-D images were generated. CAD analysis was submitted and interpreted. COMPARISON: 06/27/2019, 01/14/2017, 12/02/2016 BREAST PARENCHYMAL COMPOSITION: There are scattered areas of fibroglandular density. FINDINGS: RIGHT BREAST: No suspicious mass, calcification, or architectural distortion are identified to sugges t malignancy. There has been no suspicious interval change. LEFT BREAST: There is possible architectural distortion in the middle third of the upper outer quadra nt of the breast best appreciated 7 cm from the nipple on craniocaudal tomosynthesis image 59/86. IMPRESSION: 1. Possible left breast architectural distortion. 2. Additional mammographic views and possible breast ultrasound are recommended. BI-RADS Category 0: Incomplete: Needs additional imaging evaluation. Reviewed, dictated and finalized at location A. IMPRESSION: 1. Possible left breast architectural distortion. 2. Additional mammographic views and possible breast ultrasound are recommended . BI-RADS Category 0: Incomplete: Needs additional imaging evaluation.
== END ==
PROVIDERS: PCP Family Medicine; Visit Provider Nurse Practitioner
DX: Z12.31 Encounter for screening mammogram for malignant neoplasm of breast (principal); R92.8 Other abnormal and inconclusive findings on diagnostic imaging of breast
CPT/HCPCS: 77063; 77067

== ENCOUNTER → 2022-12-03 14:19 | Outpatient (CLI) | payer OTHER, SELFPAY ==
--- NOTE | ~2022-12-03 | MMUS_ITS ---
EXAMINATION: MM diagnostic viki LT w nuris, US breast LT limited HISTORY: Possible left breast architectural distortion on screening mammogram TECHNIQUE: Additional 3-D tomosynthesis images of the left breast were performed and synthetic 2-D im ages were generated. CAD analysis was submitted and interpreted. High resolution limited left breast ultrasound was performed. COMPARISON: 11/30/2019, 06/27/2019, 01/14/2017, 12/02/2016 FINDINGS: MAMMOGRAPHIC FINDINGS: The area of possible architectural distortion on screening mammogram somewhat disperses with spot com pression. In addition, there is a possible architectural distortion seen in the posterior third of th e breast approximately 11 cm from the nipple on mediolateral tomosynthesis image 43/86. This also miller ewhat disperses with spot compression. ULTRASOUND: No definite sonographic correlate is identified for the mammographic findings. IMPRESSION: 1. Probably benign findings of the left breast. 2. Recommend 6 month follow-up left diagnostic mammogram and possible ultrasound. BI-RADS category 3, probably benign findings. Reviewed, dictated and finalized at location A. IMPRESSION: 1. Probably benign findings of the left breast. 2. Recommend 6 month follow-up left diagnostic mammogram and possible ultrasoun d. BI-RADS category 3, probably benign findings.
== END ==
PROVIDERS: PCP Nurse Practitioner; Visit Provider Obstetrics & Gynecology Gynecology
DX: R92.8 Other abnormal and inconclusive findings on diagnostic imaging of breast (principal)
CPT/HCPCS: 76642; 77061; 77065; G0279

== ENCOUNTER 2023-05-31 12:32 | Outpatient (CLI) | payer OTHER, SELFPAY ==
--- NOTE | ~2023-05-31 | CT_ITS ---
EXAMINATION: CT abdomen pelvis w con DATE: 05/31/2023 13:22 INDICATION: Right lower quadrant abdominal pain TECHNIQUE: Computed tomography (CT) of the abdomen and pelvis was performed with 100 CC Omnipaque 350 intravenous contrast. Automated exposure control and iterative reconstruction technique were employe d. Exam dose: 1410.61 mGy-cm total exam DLP. COMPARISON: None. FINDINGS: The lung bases are clear of infiltrate or consolidation. Normal heart size. No pericardial or pleural effusion. There is steatosis involving much of the liver with some sparing at the medial segment of the left lo be. No apparent hepatic space-occupying mass lesion is detected. Status post cholecystectomy. No bile duct or pancreatic duct dilatation. Normal morphology of the adrenal glands. No renal mass lesion or urinary tract calculus or hydroureteronephrosis. Normal caliber of the abdominal aorta. No intraperitoneal or retroperitoneal or pelvic mass lesion or adenopathy or ascites. The uterus and right adnexal area are unremarkable. Approximately 2.4 cm left ovarian probable cyst with attenuation of water. The appendix measures up to 11 mm diameter, with a large appendicolith noted at the base of the appen karey. Findings are consistent with acute appendicitis. No bowel obstruction or abscess or intraperitoneal free air is detected. There are bilateral L5 pars interarticularis defects. No significant skeletal abnormality is noted otherwise. IMPRESSION: Acute appendicitis, with large appendicolith at the base of the appendix and up to 11 mm diameter Hepatic steatosis Status post cholecystectomy 2.4 cm left ovarian probable cyst Bilateral L5 pars interarticularis defects Reviewed, dictated and finalized at Location A. Reviewed, dictated and finalized at location A. IMPRESSION: Acute appendicitis, with large appendicolith at the base of the ap pendix and up to 11 mm diameter Hepatic steatosis Status post cholecystectomy 2.4 cm left ovarian probable cyst Bilateral L5 pars interarticularis defects
== END 2023-05-31 12:33 | disposition home or self-care (01) ==
PROVIDERS: PCP Family Medicine; Visit Provider Physician Assistant Medical
DX: R10.31 Right lower quadrant pain (principal); K35.80 Unspecified acute appendicitis; K76.0 Fatty (change of) liver, not elsewhere classified; M53.86 Other specified dorsopathies, lumbar region
CPT/HCPCS: 74177; Q9967

== ENCOUNTER 2023-05-31 15:07 | Observation (INO) | payer OTHER, SELFPAY ==
[2023-05-31 15:24] VITALS: BP 141/91; PULSE 103; RESP 18; TEMP 36.4; O2SAT 99
--- NOTE | 2023-05-31 15:30 | ECG_ITS ---
Measurements Intervals [place] Rate: 90 P: 65 NV: 147 QRS: 81 QRSD: 75 T: 37 QT: 358 QTc: 439 Interpretive Statements SINUS RHYTHM BASELINE ARTIFACT LOW QRS VOLTAGE IN PRECORDIAL LEADS [QRS DEFLECTION < 1.0 mV IN CHEST LEADS] BORDERLINE ECG COMPARED TO ECG 02/05/2020 12:32:34 NO SIGNIFICANT CHANGES Electronically Signed On 06-01-2023 18:24:38 CDT by Duran Zarco M.D.
--- NOTE | 2023-05-31 15:37 | ED.GENADULT ---
HPI - General Adult General Chief complaint: Abdominal Pain <Shelley Cao December - Last Filed: 05/31/23 15:39> Stated complaint: appendicitis <Shelley Cao December, - Last Filed: 05/31/23 15:39> Time Seen by Provider: 05/31/23 16:46 <Shelley Cao December, - Last Filed: 05/31/23 15:39> History of Present Illness HPI narrative: Jamee Valentine is a 48 y/o female who presents with reports of having right lower quadrant pain for 7 days, with intermittent nausea/ no vomiting. She states she had a CT done today and was sent here for acute appendicitis. Rates pain at a 7/10 She last ate at around 1430 Denies changes to urine/ bowels. <Shelley Cao December, - Last Filed: 05/31/23 15:39> Related Data Home medications: Home Medications Medication Instructions Recorded Confirmed omeprazole 20 mg capsule,delayed 20 mg PRN PRN Heartburn 03/05/22 05/31/23 release <Shelley Cao December, - Last Filed: 05/31/23 15:39> Allergies/adverse reactions: Allergies Allergy/AdvReac Type Severity Reaction Status Date / Time bupropion [From Wellbutrin] Allergy Intermediate Confusion Verified 05/31/23 15:08 Corticosteroids Allergy Unknown HIVES Verified 05/31/23 15:08 (Glucocorticoids) metronidazole [From Flagyl] Allergy Swelling Verified 05/31/23 15:08 of Lip/Tongue/Throat <Shelley Cao December, - Last Filed: 05/31/23 15:39> Review of Systems Review of Systems: All systems reviewed & are unremarkable except as noted in HPI and below <Liban Wilks MD - Last Filed: 05/31/23 17:56> Constitutional: Constitutional: Denies chills, Denies fatigue and Denies fever(s) <Liban Wilks MD - Last Filed: 05/31/23 17:56> Cardiovascular: Cardiovascular: Reports no additional cardiovascular complaints <Liban Wilks MD - Last Filed: 05/31/23 17:56> Respiratory: Respiratory: Reports no additional respiratory complaints <Liban Wilks MD - Last Filed: 05/31/23 17:56> Gastrointestinal: Gastrointestinal: Reports abdominal pain, Reports bloating, Reports diarrhea, Denies nausea and Denies vomiting <Liban Wilks MD - Last Filed: 05/31/23 17:56> Genitourinary: Genitourinary: Reports no additional female genitourinary complaints <Liban Wilks MD - Last Filed: 05/31/23 17:56> [facility] Past Medical History Medical History: Medical History (Updated 05/31/23 @ 17:20 by Liban Wilks MD) Allergies Anxiety Asthma BMI greater than 40 Bowel disease Celiac disease Cholecystectomy planned Laparoscopic: 08/01/16 COVID-19 Dyspnea Interstitial cystitis Leg pain, left Migraine Morbid obesity PCOS (polycystic ovarian syndrome) Serous otitis media Trigger thumb Ulnocarpal impaction syndrome <Shelley Nunez, SODDER - Last Filed: 05/31/23 15:39> Surgical History Surgical History: Surgical History (Updated 05/31/23 @ 17:18 by Liban Wilks MD) History of cholecystectomy <Shelley Nunez, SODDER - Last Filed: 05/31/23 15:39> Family History Family History: Family History Father Hypertension Heart disease Rheumatoid arthritis COPD (chronic obstructive pulmonary disease) Sibling Hypertension Mother Hypertension Heart disease Glioblastoma Other Cerebrovascular accident Diabetes mellitus Family history of allergic disorder Family history of type 2 diabetes mellitus <Shelley Nunez SODDER - Last Filed: 05/31/23 15:39> Social History Social History: Social History Smoking status: Former smoker Tobacco type: cigarettes Second hand tobacco smoke exposure: Yes Smoking end date: 08/15/10 Alcohol intake: current Alcohol use details: Pt drinks socially. Substance use: never Substance use type: does not use Lack of Transportation: No Lack of Food: Never True Current Housing: I Have Housing Concerned About Future Hous
[2023-05-31 16:55] LABS: Appearance Urine Clear (Clear); Bilirubin Urine Negative (Negative); Blood Urine Negative (Negative); Color Urine Yellow (Yellow); Glucose Urine UA Negative (Negative); Ketones Urine Negative (Negative); Leukocyte Esterase Ur Negative LEU/UL (Negative); Nitrate Urine Negative (Negative); Protein Urine Negative (Negative); pH Urine 5.5 (5.0-9.0)
[2023-05-31 17:03] LABS: Basophils Percent Auto 0.4 % (0.2-1.2); Eosinophils Absolute Auto 0.2 K/mm3 (0-0.3); Eosinophils Percent Auto 1.4 % (0-4.4); Hematocrit 42.6 % (37.0-47.0); Hemoglobin 13.6 g/dL (12.0-15.0); Immature Granulocyte Absolute 0.04 K/mm3 (0.00-0.031); Immature Granulocyte Percent A 0.4 % (0-0.5); Lymphocytes Absolute Auto 3.83 K/mm3 (0.9-3.2); Mean Corpuscular HGB Conc 31.9 g/dl (32-36); Mean Corpuscular Hemoglobin 28.1 pg (26-34); Mean Platelet Volume 9.6 fl (7.4-10.4); Monocytes Absolute Auto 0.5 K/mm3 (0.1-0.6); Monocytes Percent Auto 4.2 % (2.6-8.5); Neutrophils Absolute Auto 6.4 K/mm3 (1.3-6.7); Neutrophils Percent Auto 58.6 % (45.5-73.1); Platelet Count Result 366 k/mm3 (150-375); Red Blood Count 4.84 M/mm3 (4.2-5.4); Red Cell Distribution Width 13.8 % (11.5-14.5); White Blood Count 10.9 K/mm3 (4.5-10.0)
[2023-05-31 17:06] LABS: Add Urine Microscopic? NO; Specific Grav Ur 1.061 (1.001-1.035)
[2023-05-31] MEDS: PIPERACILLN/TAZ 3.375GM/NS50ML 3.375 GM/50 ML BAG IVPB ×2 (17:21→22:59)
[2023-05-31 17:42] LABS: Alanine Aminotransferase 37 U/L (6-35); Albumin Level 4.8 g/dL (3.5-5.1); Alkaline Phosphatase 38 U/L (38-126); Anion Gap 9 mmol/L (8-16); Aspartate Amino Transferase 32 U/L (14-36); Bilirubin,Total 0.5 mg/dL (0.2-1.3); Blood Urea Nitrogen 16 mg/dL (7-17); Calcium 9.7 mg/dL (8.4-10.2); Carbon Dioxide 28 mmol/L (22-30); Chloride 99 mmol/L (98-107); Estimated Glomerular Filt Rate > 60; Glucose 85 mg/dL (65-110); Lipase 114 U/L (23-300); Potassium 4.1 mmol/L (3.4-5.0); Sodium 136 mmol/L (137-145)
[2023-05-31 17:43] LABS: Lactic Acid Reflex 1.4 mmol/L (0.7-2.0)
[2023-05-31 18:12] VITALS: BP 119/88; PULSE 90; RESP 16; O2SAT 99
[2023-05-31 18:31] VITALS: BP 136/99; PULSE 97; RESP 18; O2SAT 98
--- NOTE | 2023-05-31 18:31 | PC.NURSE ---
Pt refused morphine at this time
[2023-05-31 19:40] VITALS: BP 140/88; PULSE 95; RESP 14; TEMP 36.3; O2SAT 99
[2023-05-31 20:03] VITALS: BMI 43.1
--- NOTE | 2023-05-31 20:21 | ADMGEN ---
This patient, Jamee Valentine, was admitted to 3 [facility] Surg Room 327-01. Patient/family oriented to hospital policies and general routines including ID bracelet, bed and alarms, visiting hours, pain management, procedures, bathroom and other care routines, personal items, smoking policy, room service/diet, and visiting hours. Information on how to activate the Rapid Response Team has been discussed. Patient/Family are encouraged to report perceived risks to care and to ask questions if they do not understand what they are told or what they should do.
[2023-05-31] MEDS: KETOROLAC 15 MG/ML VIAL (*BKC) IV PUSH (22:28)
[2023-06-01] VITALS (11 sets, daily range): BP systolic 117–155; BP diastolic 68–93; PULSE 78–98; RESP 13–18; TEMP 35.7–36.8; O2SAT 93–100
[2023-06-01] MEDS: PIPERACILLN/TAZ 3.375GM/NS50ML 3.375 GM/50 ML BAG IVPB (05:08)
[2023-06-01] MEDS: KETOROLAC 15 MG/ML VIAL (*BKC) IV PUSH ×2 (05:08→11:01)
--- NOTE | 2023-06-01 08:14 | PM.IMHP ---
H&P: HPI History of Present Illness Date/Time: 06/01/23 08:14 Chief Complaint: Abdominal pain Narrative: This is a 48-year-old woman who presented to the ER yesterday due to findings of acute appendicitis on an outpatient CT scan. She reports an onset right lower quadrant abdominal pain 8 days ago. She has a history of celiac disease and initially thought her pain could be related to her GI issues. She reports associated bloating by Tuesday. Her abdominal pain seemed worse at night, but was tolerable during the day. She still went to work and was eating normally. By Tuesday, her bloating became more prominent and she began taking omeprazole and a probiotic to see if this would help. Her abdominal pain began radiating to her mid back. She eventually decided to see her primary care provider yesterday. They sent her for a stat CT scan of the abdomen and pelvis as an outpatient. This showed acute appendicitis with a large appendicolith at the base of the appendix up to 11 mm diameter. She was then directed to the ER for evaluation[place] [id number]. She was admitted to our service and started on IV Zosyn. She has been made NPO. Only previous abdominal surgery was a laparoscopic cholecystectomy in 2016. Review of Systems Review of Systems: All systems reviewed & are unremarkable except as noted in HPI and below PMFSH Past Medical History Medical History Allergies Anxiety Asthma BMI greater than 40 Bowel disease Celiac disease Cholecystectomy planned Laparoscopic: 08/01/16 COVID-19 Dyspnea Interstitial cystitis Leg pain, left Migraine Morbid obesity PCOS (polycystic ovarian syndrome) Serous otitis media Trigger thumb Ulnocarpal impaction syndrome Surgical History Surgical History History of cholecystectomy Family History Family History Father Hypertension Heart disease Rheumatoid arthritis COPD (chronic obstructive pulmonary disease) Sibling Hypertension Mother Hypertension Heart disease Glioblastoma Other Cerebrovascular accident Diabetes mellitus Family history of allergic disorder Family history of type 2 diabetes mellitus Social History Social History Smoking status: Never smoker Tobacco type: cigarettes Second hand tobacco smoke exposure: No Smoking end date: 08/15/10 Alcohol intake: current Drinks per week: 3 Alcohol use details: Pt drinks socially. 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): Female Spiritual care concerns: No Meds Home Medications and Allergies Home Medications Medication Instructions Recorded Confirmed Type omeprazole 20 mg capsule,delayed 20 mg PRN PRN Heartburn 03/05/22 05/31/23 History release clobetasol 0.05 % scalp solution 1 applic topical BID PRN 07/14/22 05/31/23 Rx dermatitis #50 mL albuterol sulfate 90 mcg/actuation 1 inh inhalation Q4-6H PRN 08/05/22 05/31/23 Rx aerosol inhaler shortness of breath or wheezing #8.5 grams escitalopram oxalate 20 mg tablet See Rx Instructions .Route 03/09/23 05/31/23 Rx .COMPLEX #90 tabs drospirenone (contraceptive) 4 mg 1 tablet PO DAILY 05/31/23 05/31/23 History (28) tablet (Slynd) Allergies Allergy/AdvReac Type Severity Reaction
--- NOTE | 2023-06-01 08:15 | PC.NURSE ---
To OR per stretcher.
--- NOTE | 2023-06-01 08:34 | WPDANESEPPF ---
Anes - Initial Pre Proc Eval Procedure: Operation Date: 06/01/23 10:00 Proposed Procedures p Laparoscopic Appendectomy - Mars Foy DO Date/Time: 06/01/23 08:34 Surgeon: Mars Foy DO Pre Op Diagnosis: appendicitis Patient Data Age: 48 Gender: F Height: 1.63 m Weight: 114 kg Last Vital Signs Temp 96.7 F L 06/01/23 06:00 Pulse 83 06/01/23 06:00 Resp 16 06/01/23 06:00 BP 119/71 06/01/23 06:00 Pulse Ox 98 06/01/23 06:00 O2 Del Method Room Air 05/31/23 15:24 Allergies Allergy/AdvReac Type Severity Reaction Status Date / Time bupropion [From Wellbutrin] Allergy Intermediate Confusion Verified 05/31/23 15:08 Corticosteroids Allergy Unknown HIVES Verified 05/31/23 15:08 (Glucocorticoids) metronidazole [From Flagyl] Allergy Swelling Verified 05/31/23 15:08 of Lip/Tongue/Throat Home Medications Medication Instructions Recorded Confirmed Type omeprazole 20 mg capsule,delayed 20 mg PRN PRN Heartburn 03/05/22 05/31/23 History release clobetasol 0.05 % scalp solution 1 applic topical BID PRN 07/14/22 05/31/23 Rx dermatitis #50 mL albuterol sulfate 90 mcg/actuation 1 inh inhalation Q4-6H PRN 08/05/22 05/31/23 Rx aerosol inhaler shortness of breath or wheezing #8.5 grams escitalopram oxalate 20 mg tablet See Rx Instructions .Route 03/09/23 05/31/23 Rx .COMPLEX #90 tabs drospirenone (contraceptive) 4 mg 1 tablet PO DAILY 05/31/23 05/31/23 History (28) tablet (Slynd) Laboratory Tests 05/31/23 05/31/23 16:22 16:48 WBC 10.9 H K/mm3 (4.5-10.0) RBC 4.84 M/mm3 (4.2-5.4) Hgb 13.6 g/dL (12.0-15.0) Hct 42.6 % (37.0-47.0) MCV 88.0 fl (80-100) MCH 28.1 pg (26-34) MCHC 31.9 L g/dl (32-36) RDW 13.8 % (11.5-14.5) Plt Count 366 k/mm3 (150-375) MPV 9.6 fl (7.4-10.4) Immature Gran % (Auto) 0.4 % (0-0.5) Neut % (Auto) 58.6 % (45.5-73.1) Lymph % (Auto) 35.0 % (18.3-44.2) [place] % (Auto) 4.2 % (2.6-8.5) Eos % (Auto) 1.4 % (0-4.4) Baso % (Auto) 0.4 % (0.2-1.2) Lymph # (Auto) 3.83 H K/mm3 (0.9-3.2) Johnston # (Auto) 0.5 K/mm3 (0.1-0.6) Eos # (Auto) 0.2 K/mm3 (0-0.3) Baso # (Auto) 0.0 K/mm3 (0.0-0.1) Abs Immat Gran (auto) 0.04 H K/mm3 (0.00-0.031) Absolute Neuts (auto) 6.4 K/mm3 (1.3-6.7) Absolute Nucleated RBC 0.0 K/mm3 (0.0-0.012) Nucleated RBC % 0.0 % (0.0-0.2) Sodium 136 L mmol/L (137-145) Potassium 4.1 mmol/L (3.4-5.0) Chloride 99 mmol/L (98-107) Carbon Dioxide 28 mmol/L (22-30) Anion Gap 9 mmol/L (8-16) BUN 16 mg/dL (7-17) Creatinine 0.90 mg/dL (0.7-1.0) Estim Creat Clear Calc Not Reportable Estimated GFR > 60 (59 - ) Glucose 85 mg/dL (65-110) Lactic Acid 1.4 mmol/L (0.7-2.0) Calcium 9.7 mg/dL (8.4-10.2) Total Bilirubin 0.5 mg/dL (0.2-1.3) AST 32 U/L (14-36) ALT 37 H U/L (6-35) Alkaline Phosphatase 38 U/L (38-126) Total Protein 9.0 H g/dL (6.3-8.2) Albumin 4.8 g/dL (3.5-5.1) Lipase 114 U/L (23-300) Urine Color Yellow (Yellow) Urine Appearance Clear (Clear) Urine pH 5.5 (5.0-9.0) Ur Specific [place] 1.061 H (1.001-1.035) Urine Protein Negative mg/dL (Negative) Urine Glucose (UA) Negative mg/dL (Negative) Urine Ketones Negative mg/dL (Negative) Ur Blood (Man) Negative (Negative) Urine Nitrate Negative (Negative) Urine Bilirubin Negative (Negative) Urine Urobilinogen 1.0 mg/dL (<2.0) Leukocyte Esterase Rfl Negative FREDDY/UL (Negative) Patient hx anesthesia problems: post op nausea/vomiting Family hx anesthesia problems: none Results Review: All pre-ope
[2023-06-01] MEDS: LACTATED RINGERS 1,000 ML 30 ML IV CONT ×2 (08:45→11:21)
[2023-06-01] MEDS: SCOPOLAMINE 1.5 MG PATCH TRANSDERM (08:45)
--- NOTE | 2023-06-01 09:46 | WPDHPUPDATE1 ---
History and Physical Update Update Date/Time: 06/01/23 09:46 History and Physical has been reviewed, including an updated exam of the patient. There are NO changes in the patient's condition. Risks, benefits, and alternatives have been discussed and questions answered. Patient agrees to proceed with procedure.
[2023-06-01] MEDS: BUPivacaine HCL 0.5% 10 ML AMP 20 ML INFILTRATE (09:56)
[2023-06-01] MEDS: LIDO 1%/EPINEPHRINE 1:100,000 50 ML VIAL 20 ML INFILTRATE (09:56)
[2023-06-01] MEDS: ONDANSETRON INJ 4 MG/2 ML VIAL IV PUSH ×2 (11:42→15:36)
--- NOTE | 2023-06-01 11:57 | W.PM.PROC2 ---
Procedure Note - Detailed Date of Procedure 06/01/23 Pre-op Diagnosis Acute appendicitis Post-op Diagnosis Same Procedure Performed Laparoscopic appendectomy Surgeon Frank Miranda MD Front Office Java Developer GRICELDA [place] Anesthesia General Indications Patient is a 48-year-old female who presented to the emergency room with a one-week history of gradually worsening right lower quadrant abdominal pain. [place] [address]. She was afebrile in the emergency room. CT scan abdomen pelvis showed a dilated appendix up to 11mm in diameter with an appendicolith at the base of the appendix. No perforation or periappendiceal abscess was seen. Findings The base of the appendix was dilated and minimally inflamed. There is no gangrene of the appendix. The base of the appendix was viable. There is no perforation or periappendiceal abscess. Description of Procedure After informed consent was obtained patient brought to the operating room she was placed supine position and general endotracheal anesthesia was administered. A Clement catheter was placed decompress the bladder. The abdomen was then prepped and draped in usual sterile fashion a time-out was then performed correctly identifying the patient as well as procedure to be performed. She was already on scheduled IV antibiotics. He then proceeded to gain entrance into the abdomen placing a 5mm Optiview port in the left upper quadrant with a direct optical insertion. Once inside the abdomen insufflated to adequate pneumoperitoneum 15mmHg of CO2. I then placed additional trocar ports to include a 12mm periumbilical trocar port as well as a 5mm suprapubic trocar port and a 5mm right lower quadrant trocar port all under direct visualization. Utilizing laparoscopic kiel there were a few adhesions of the cecum to the lateral abdominal wall which were divided and this allowed me to mobilize the cecum and rotated medially. I was then able to find the appendix which was very long but normal throughout its distal 2/3. Proximal port of the appendix was dilated and mildly erythematous consistent with an early acute appendicitis. There is no gangrene or perforation the appendix. I then with laparoscopic instruments held up the appendix and then made a defect through the mesoappendix just at the base of the cecum. A 45mm Endo-KAYCEE stapler was then used to divide the appendix at the base flushed with the cecum. Two vascular reloads to the 45mm Endo-KAYCEE stapler was then used to divide mesoappendix. The appendix was then placed into an Endo-Catch bag and brought out through the periumbilical trocar port site. It was passed off table and sent to pathology for examination. I then it again out the right lower quadrant the abdomen. I inspected both staple lines and they were hemostatic. Aspirated out the fluid from the pelvis and then removed all the trocar ports under direct visualization. Port sites appeared hemostatic. I then closed the periumbilical trocar port 12mm fascial defect utilizing 0 Vicryl suture. The skin edges in all the port sites without possible utilizing a running subcuticular 4 Monocryl suture. The incisions were then cleaned and skin glue and sterile dressings were applied The patient tolerated the procedure well no complications. All sponges, needles, and instrument counts were correct at the end procedure. EBL was _15__cc. The patient was awakened and taken to recovery in stable and satisfactory condition. Implants None Estimated Blood Loss -15.0 Drains No Packing No Pathology Yes (Appendix sent to pathology) Complications No immediate complications Condition Stable Disposition PACU [facility] Billing Surgery - Charge Forward: Surgery Billing
[2023-06-01] MEDS: fentaNYL CITRATE INJ (*CRX) 100 MCG/2 ML VIAL 25 MCG IV PUSH ×4 (11:59→12:16)
--- NOTE | 2023-06-01 12:36 | PC.NURSE ---
Report received per telephone from Cat, COMPLIANCE COORDINATOR.
--- NOTE | 2023-06-01 12:55 | PC.NURSE ---
Return to room 327 per stretcher from OR. Family at bedside.
[2023-06-01] MEDS: HYDROcodone/acetaminophen (*CRX) 5-325 MG TABLET 1 TAB PO (15:33)
--- NOTE | 2023-06-01 18:04 | PM.DS ---
DS: Admitting Diagnosis Discharge Date June 01, 2023 Admitting Diagnosis Acute appendicitis DS: Discharge Diagnosis Discharge Diagnosis (1) Acute appendicitis: Code(s): K35.80 - Unspecified acute appendicitis Status: Acute Assessment and Plan: Patient underwent laparoscopic appendectomy. Acute appendicitis surgically resolved. Discharge home this evening. Follow-up in the office in 2 weeks. DS: Summary Hospital Course Reason for hospitalization: Acute appendicitis. Hospital Course: Patient presented to the emergency room with right lower quadrant abdominal pain which has been present for about 7 days. He has gradually gotten worse over that time. In the emergency room she had a slightly elevated white blood cell count of about 11,000. CT scan abdomen pelvis was performed showing a large appendicolith at the base of the appendix just at the appendiceal orifice. There was mild dilation of the appendiceal base about 11mm in diameter. Some subtle inflammatory changes were noted it was suspected she had acute appendicitis. She was admitted to the hospital and kept NPO started on IV antibiotics. The next morning she was then taken to the operating room she underwent uncomplicated laparoscopic appendectomy. Postoperatively her course in the recovery room was uneventful and she was transferred back up to the surgical floor. While on the surgical floor she tolerated clear liquids and then advanced to regular diet. She was able to get up and ambulate the hallways without difficulty as she voided spontaneously. Her IV antibiotics were stopped. On the evening of surgery she was doing pretty well and her incisions were healing well without any evidence of bleeding. Her pain was well controlled with oral pain medications. She was discharged home in improved condition. Status at Discharge Functional status at discharge: independent ambulation Overall status at discharge: patient is back to baseline Time Spent with Patient Time attestation: Total time spent providing and/or coordinating discharge services: Time spent: Less than 30 minutes Exam Const: General: cooperative, healthy appearing and comfortable HENMT: Head: normal to inspection, normocephalic and atraumatic Eyes: General: appearance normal, both eyes and all related structures Visual Richter: normal visual richter by confrontation Neck: Neck: normal visual inspection and full ROM Chest: Chest palpation & inspection: normal inspection of the chest and normal palpation of entire chest wall Resp: Effort & Inspection: normal respiratory effort and able to speak in complete sentences Cardio: Jugular venous distension: no JVD Rate: regular rate Rhythm: regular rhythm GI: Inspection: normal to inspection Other: Abdomen obese but soft. Laparoscopic incisions are healing well without any redness or drainage. Expected mild tenderness around the port site incisions. Right lower quadrant pain is now resolved. Skin: General skin exam: normal color and no rashes or lesions noted Neuro: General: patient oriented x3 and CN's II-XI intact bilaterally Extrem: General: normal to inspection and full ROM Psych: Appearance: grossly normal and well kempt Speech and movement: Normal speech and movement present Affect: normal affect Attitude: cooperative Judgement: Good judgement present (Psych) DS: Data Data Completed and Pending Pending studies at discharge: Pending at discharge 06/01/23 10:33 Surgical [PTH] Routine Discharge Plan Discharge Attending physician on discharge: Mars Foy Consulting providers: Shelley Nunez Discharging Clinician: Frank Miranda Patient Disposition: Home, Self-Care Activity: zhao shower and other - see discharge instructions Diet: as tolerated and regular Wound Care Instructions: other - see discharge instructions Discharge Instructions: Anesthesia used a medication called S
== END 2023-06-01 19:05 | disposition home or self-care (01) ==
LOC: ANHED 17:20 → ANH3MEDSUR 06-01 02:34
PROVIDERS: Nurse Practitioner Family; Admitting Provider Surgery; Emergency Provider Emergency Medicine; PCP Family Medicine; Visit Provider Surgery
PROC: 0DTJ4ZZ Resection of Appendix, Percutaneous Endoscopic Approach (ICD-10-PCS; CPT 44970; principal; 2023-06-01 10:00)
DX: K35.80 Unspecified acute appendicitis (principal); D72.829 Elevated white blood cell count, unspecified; F41.9 Anxiety disorder, unspecified; J45.909 Unspecified asthma, uncomplicated; K90.0 Celiac disease; R06.02 Shortness of breath; L30.9 Dermatitis, unspecified; R12 Heartburn; F10.90 Alcohol use, unspecified, uncomplicated; E66.01 Morbid (severe) obesity due to excess calories; Z68.41 Body mass index [BMI] 40.0-44.9, adult; Z86.16 Personal history of COVID-19; Z79.51 Long term (current) use of inhaled steroids; Z79.3 Long term (current) use of hormonal contraceptives; Z79.899 Other long term (current) drug therapy
CPT/HCPCS: 44970; 36415; 74177; 80053; 81003; 83605; 83690; 85025; 88304; 93005; 96365; 99285; A9270; G0378; J0330; J1100; J1170; J1885; J2250; J2405; J2543; J2704; J3010; J7030; J7120; Q9967

== ENCOUNTER 2023-06-28 14:18 | Outpatient (CLI) | payer OTHER, SELFPAY ==
--- NOTE | ~2023-06-28 | XR_ITS ---
XR chest 2V DATE: 06/28/2023 14:32 INDICATION: Chronic cough. History of asthma. TECHNIQUE: PA and lateral views COMPARISON: 08/05/2022 2 view chest FINDINGS: Normal heart size. No hilar or mediastinal enlargement. No pulmonary infiltrate or consolid ation, pleural effusion or pulmonary vascular congestion or pneumothorax is detected. Minimal thoracic levoscoliosis. Surgical clips, right upper quadrant, likely due to cholecystectomy. IMPRESSION: No active cardiopulmonary disease Reviewed, dictated and finalized at location L. [place] LABORATORY MANAGER
== END 2023-06-28 14:19 | disposition home or self-care (01) ==
PROVIDERS: PCP Family Medicine; Visit Provider Nurse Practitioner Family
DX: R05.3 Chronic cough (principal)
CPT/HCPCS: 71046

== ENCOUNTER 2023-12-01 07:30 | Outpatient (RCR) | payer OTHER, SELFPAY ==
--- NOTE | 2023-10-17 08:53 | PCPTNOTE ---
Patient called & cancelled scheduled initial evaluation this date due to being sick. She has not been rescheduled at this time.
--- NOTE | 2023-11-02 09:16 | OPREHPOC ---
Outpatient Therapy Plan of Care This is a Multidisciplinary Plan of Care that may contain components documented by all disciplines (PT, OT, and ST.) PT Problem 1 PT Problem #1 Knowledge Deficit PT Goal 1 Goal Pt to be IND with issued HEP. Target Visit 8 PT Problem 2 PT Problem #2 Pain PT Goal 1 Goal Pt to report R hip pain no greater than 3/10 in the last week. Target Visit 8 PT Goal 2 Goal Pt to report 75% improvement in overall symptoms. Target Visit 8 PT Problem 3 PT Problem #3 Impaired Strength PT Goal 1 Goal Pt to improve xiao hip abduction strength to grossly 4/5. Target Visit 8 PT Problem 4 PT Problem #4 Impaired Functional Mobil PT Goal 1 Goal Pt to demonstrate a functional lift and carry with 20lb from ground level. Target Visit 8 PT Problem 5 PT Problem #5 Pain PT Goal 1 Goal Pt to report no increase in pain when rolling over in bed. Target Visit 8
--- NOTE | 2023-11-02 09:16 | PTOPEVAL1 ---
Assessment and note entered by Syl Cerda, PT, DPT Evaluation Information Assessment Status Evaluation Diagnosis R hip pain Onset multiple years Subjective Information Pt states she has hip bursitis and has pain on and off for the last couple of years. She was given 2 different steroid shots and they helped a lot, most recent was last month. Pt states she gets increased pain with prolonged sitting, states sometimes activity makes it better and other times it makes it worse. Pt is a relator, and does a lot of sitting. Reported Pain Level Pain Score 1: Self Report Assessment PT Clinical Summary Jamee presents to therapy today for her initial evaluation with a diagnosis of R hip pain. Today she demonstrates hip weakness xiao, tenderness to palpation, and decreased functional strength. She reports lots of tenderness to palpation in her xiao piriformis. She sits with a rounded and flexed posture. Skilled therapy services are indicated to address the deficits noted above, to manage pain, to improve soft tissue mobility, and to return to PLOF. Plan of Care Interventions Electrical Stimulation,Gait Training,Hot Pack/Cold Pack,Manual Therapy,Patient/Caregiver Educati, Therapeutic Activities,Therapeutic Exercise PT Services Indicated Yes Treatment Frequency and 1-2x/wk for 8 visits Duration These treatments will address the objective and functional deficits as defined above. The patient will be advanced safely and appropriately in order for the patient to progress towards his/her prior level of function. Additional exercises will be introduced and as well as a comprehensive home exercise program upon discharge, if needed, ?to ensure carryover of functional gains achieved in the clinic. This treatment plan has been reviewed and agreement upon by the patient.
--- NOTE | 2023-12-16 15:22 | PCPTNOTE ---
No call no show this Tuesday. JOSEPH
--- NOTE | 2023-12-21 13:12 | PCPTNOTE ---
Pt. called and cancelled her scheduled appointment on this date due to severe weather. She will call back to re-schedule. Justice Carney, MPT
--- NOTE | 2024-01-26 08:38 | PCPTNOTE ---
Mrs. Valentine attended at total of 6 treatment sessions from 11-01-23 to 11-19-23. She has failed to attended her last 2 scheduled appointments and has not contacted the clinic. Refer to her last daily note for discharge status. She will be discharged from our care at this time. Thank you for the referral of this patient. Justice Carney, MPT
== END 2024-01-26 11:36 | disposition home or self-care (01) ==
LOC: ANHPT 07:30
PROVIDERS: PCP Family Medicine; Visit Provider Orthopaedic Surgery
DX: M25.551 Pain in right hip (principal); M25.531 Pain in right wrist
CPT/HCPCS: 97014; 97035; 97110; 97140; 97161; 97530; 99199; G0283

== ENCOUNTER 2024-03-16 14:11 | Emergency (ER) | payer OTHER, SELFPAY ==
--- NOTE | ~2024-03-16 | XR_ITS ---
EXAMINATION: XR ankle LT min 3V DATE: 03/16/2024 15:09 INDICATION: Left ankle pain. Fall. TECHNIQUE: 4 views of left ankle were obtained. COMPARISON: None. FINDINGS: Bone alignment is normal. No fracture. Joint spaces are normal. There are enthesophytes at the posterior and plantar aspects of calcaneal tuberosity. There is ankle soft tissue swelling. IMPRESSION: 1. No fracture. Reviewed, dictated and finalized at location A. IMPRESSION: 1. No fracture.
--- NOTE | ~2024-03-16 | XR_ITS ---
EXAMINATION: XR knee RT min 4V DATE: 03/16/2024 15:09 INDICATION: Right knee pain post fall TECHNIQUE: Anteroposterior, 2 oblique and crosstable lateral views of the affected knee were obtained COMPARISON: None. FINDINGS: Alignment is normal. No fracture. Joint spaces appear normal on nonweightbearing imaging. Small fan llar marginal osteophytes consistent with at least mild osteoarthritis. No joint effusion/layering li pohemarthrosis. Soft tissues are unremarkable. IMPRESSION: 1. Mild patellofemoral osteoarthritis. No right knee joint effusion or acute osseous abnormality. Reviewed, dictated and finalized at location A. IMPRESSION: 1. Mild patellofemoral osteoarthritis. No right knee joint effusion or acute os seous abnormality.
--- NOTE | ~2024-03-16 | XR_ITS ---
EXAMINATION: XR wrist RT min 3V DATE: 03/16/2024 15:10 INDICATION: Right wrist pain. Fall. TECHNIQUE: 4 views of right wrist were obtained. COMPARISON: Right hand radiographs 06/09/2021 FINDINGS: Bone alignment is normal. No fracture. There is chronic cystic change in proximal lunate, c onsistent with ulnolunate impaction syndrome. Joint spaces are normal. IMPRESSION: 1. No fracture. Reviewed, dictated and finalized at location A. IMPRESSION: 1. No fracture.
--- NOTE | ~2024-03-16 | XR_ITS ---
EXAMINATION: XR ankle RT min 3V DATE: 03/16/2024 15:09 INDICATION: Right ankle pain. Fall. TECHNIQUE: 4 views of right ankle were obtained. COMPARISON: None. FINDINGS: Bone alignment is normal. There is heterotopic ossification distal to medial malleolus. The re is an osteochondral lesion of medial talar dome. There is an enthesophyte at posterior aspect of c alcaneal tuberosity. IMPRESSION: 1. Heterotopic ossification distal to medial malleolus, which may be a chronic finding or less likely an acute avulsion fracture. 2. Osteochondral lesion of medial talar dome. Reviewed, dictated and finalized at location A.
--- NOTE | 2024-03-16 14:15 | ED.FALL ---
HPI - Fall General Chief Complaint: Extremity Injury, Lower Stated Complaint: FALL/BOTH ANKLE/R KNEE/R WRIST INJURIES Time Seen by Provider: 03/16/24 14:14 Source: patient Mode of arrival: ambulatory Limitations: no limitations History of Present Illness HPI Narrative: Jamee is a 48-year-old female presents to the clinic today with complaints of right wrist, right knee, and bilateral ankle pain after falling earlier today. She has been able to bear weight on both ankles and has not taken anything for pain. She denies any head trauma, loss of consciousness, dizziness, or lightheadedness. Related Data Home Medications Medication Instructions Recorded Confirmed omeprazole 20 mg capsule,delayed 20 mg PRN PRN Heartburn 03/05/22 03/16/24 release drospirenone (contraceptive) 4 mg 1 tablet PO DAILY 05/31/23 03/16/24 (28) tablet (Slynd) multivitamin 1 tablet PO DAILY 10/06/23 03/16/24 Allergies Allergy/AdvReac Type Severity Reaction Status Date / Time bupropion [From Wellbutrin] Allergy Intermediate Confusion Verified 03/16/24 14:40 Corticosteroids Allergy Unknown HIVES Verified 03/16/24 14:40 (Glucocorticoids) metronidazole [From Flagyl] Allergy Swelling Verified 03/16/24 14:40 of Lip/Tongue/Throat Review of Systems Review of Systems: Pertinent positives per HPI. Patient denies any fever, chills, rash, visual changes, dizziness, cough, runny nose, sore throat, shortness of breath, chest pain, palpitations, nausea, vomiting, diarrhea, constipation, abdominal pain, or any urinary issues. [facility] Past Medical History Medical History Adult celiac disease Allergies Anxiety Asthma BMI greater than 40 Bowel disease Celiac disease Cholecystectomy planned Laparoscopic: 08/01/16 COVID-19 Dyspnea Interstitial cystitis Leg pain, left Migraine Morbid obesity PCOS (polycystic ovarian syndrome) Serous otitis media Trigger thumb Ulnocarpal impaction syndrome Surgical History Surgical History History of cholecystectomy History of laparoscopic appendectomy Family History Family History Father Hypertension Heart disease Rheumatoid arthritis COPD (chronic obstructive pulmonary disease) Sibling Hypertension Mother Hypertension Heart disease Glioblastoma Other Cerebrovascular accident Diabetes mellitus Family history of allergic disorder Family history of type 2 diabetes mellitus Social History Social History Smoking status: Former smoker Tobacco type: cigarettes Second hand tobacco smoke exposure: No Alcohol intake: current Drinks per week: 3 Alcohol use details: Pt drinks socially. Substance use: never Substance use type: does not use Do You Feel Safe in your Home?: Yes Lack of Transportation: No Lack of Food: Never True Current Housing: I Have Housing Concerned About Future Housing: No Difficulty Paying Gas/Electric Bills: No Difficulty Paying for Meds: No Currently Unemployed: No Education: Bachelor's Degree Difficulty w/ Childcare or Family Care: No Living arrangements: with family Occupation/Education: occupation Additional occupation/education comments: Realtor Gender identity (if verbalized by the patient): Female Spiritual care concerns: No Comments At the time of my signature, I reviewed and agree with the nursing past medical, surgical, social, and family history. There is no relevant family history pertinent to the patient complaint. Exam Narrative: General: Well-developed, well nourished, in no apparent distress Head: Normocephalic, atraumatic. Cardio: Regular rate and rhythm, s1 and s2 normal, no murmur appreciated. Resp: Clear to auscultation bilaterally, no rhonc
[2024-03-16 14:43] VITALS: BP 96/50; PULSE 104; RESP 16; TEMP 36.2; O2SAT 99
== END 2024-03-16 15:46 | disposition home or self-care (01) ==
PROVIDERS: Emergency Provider Nurse Practitioner Family; PCP Family Medicine
DX: S93.402A Sprain of unspecified ligament of left ankle, initial encounter (principal); S93.401A Sprain of unspecified ligament of right ankle, initial encounter; S63.501A Unspecified sprain of right wrist, initial encounter; S83.521A Sprain of posterior cruciate ligament of right knee, initial encounter; W19.XXXA Unspecified fall, initial encounter; J45.909 Unspecified asthma, uncomplicated; K90.0 Celiac disease; E66.01 Morbid (severe) obesity due to excess calories; Z68.41 Body mass index [BMI] 40.0-44.9, adult; E28.2 Polycystic ovarian syndrome; Z87.891 Personal history of nicotine dependence
CPT/HCPCS: 73110; 73564; 73610; 99214; G0463

== ENCOUNTER 2024-04-10 07:36 | Outpatient (CLI) | payer OTHER, SELFPAY ==
[2024-04-10 08:11] LABS: Alanine Aminotransferase 40 U/L (6-35); Albumin Level 4.6 g/dL (3.5-5.1); Alkaline Phosphatase 35 U/L (38-126); Anion Gap 12 mmol/L (4-12); Aspartate Amino Transferase 31 U/L (14-36); Basophils Absolute Auto 0.1 K/mm3 (0.0-0.1); Basophils Percent Auto 0.6 % (0.2-1.2); Bilirubin,Total 0.4 mg/dL (0.2-1.3); Blood Urea Nitrogen 15 mg/dL (7-17); Calcium 9.6 mg/dL (8.4-10.2); Carbon Dioxide 25 mmol/L (22-30); Chloride 101 mmol/L (98-107); Cholesterol 166 mg/dL (0-200); Eosinophils Absolute Auto 0.2 K/mm3 (0-0.3); Eosinophils Percent Auto 2.2 % (0-4.4); Estimated Glomerular Filt Rate > 60; Glucose 105 mg/dL (65-110); HDL Direct 39 mg/dL; Hematocrit 40.2 % (37.0-47.0); Hemoglobin 13.1 g/dL (12.0-15.0); Immature Granulocyte Absolute 0.03 K/mm3 (0.00-0.031); Immature Granulocyte Percent A 0.3 % (0-0.5); Lymphocytes Absolute Auto 3.68 K/mm3 (0.9-3.2); Lymphocytes Percent Auto 42.5 % (18.3-44.2); Mean Corpuscular HGB Conc 32.6 g/dl (32-36); Mean Corpuscular Hemoglobin 28.7 pg (26-34); Mean Platelet Volume 9.2 fl (7.4-10.4); Monocytes Absolute Auto 0.4 K/mm3 (0.1-0.6); Monocytes Percent Auto 4.7 % (2.6-8.5); Neutrophils Absolute Auto 4.3 K/mm3 (1.3-6.7); Neutrophils Percent Auto 49.7 % (45.5-73.1); Platelet Count Result 346 k/mm3 (150-375); Potassium 3.9 mmol/L (3.4-5.0); Red Blood Count 4.57 M/mm3 (4.2-5.4); Red Cell Distribution Width 13.6 % (11.5-14.5); Sodium 138 mmol/L (137-145); Triglycerides 122 mg/dL (<150); White Blood Count 8.7 K/mm3 (4.5-10.0)
[2024-04-10 08:23] LABS: LDL Cholesterol Direct 99 mg/dL
[2024-04-10 10:42] LABS: Free T4 Free Thyroxine 0.77 ng/mL (0.78-2.19); Vitamin D 25 Hydroxy 42.1 ng/mL
[2024-04-10 12:02] LABS: Hemoglobin A1C 5.7 % (<5.7)
[2024-04-11 08:53] LABS: CRP, High Sensitivity 19.7 mg/L
== END 2024-04-10 07:37 | disposition home or self-care (01) ==
LOC: ANHLAB 07:38
PROVIDERS: PCP Family Medicine; Visit Provider Family Medicine
DX: Z13.220 Encounter for screening for lipoid disorders (principal); E55.9 Vitamin D deficiency, unspecified; R79.89 Other specified abnormal findings of blood chemistry; K76.0 Fatty (change of) liver, not elsewhere classified; R73.01 Impaired fasting glucose; K90.0 Celiac disease; R79.82 Elevated C-reactive protein (CRP); I10 Essential (primary) hypertension
CPT/HCPCS: 36415; 80053; 80061; 82248; 82306; 83036; 84439; 84443; 85025; 86141

== ENCOUNTER 2024-05-02 12:52 | Outpatient (CLI) | payer OTHER, SELFPAY ==
--- NOTE | ~2024-05-02 | MM_ITS ---
EXAMINATION: MM screening [facility] BI w [facility] HISTORY: Screening mammogram TECHNIQUE: Craniocaudal and mediolateral oblique 3-D tomosynthesis images were obtained and synthetic 2-D images were generated. CAD analysis was submitted and interpreted. COMPARISON: 11/29/2022, 06/27/2019 BREAST PARENCHYMAL COMPOSITION:Not Dense. There are scattered areas of fibroglandular density. FINDINGS: Small bilateral low-density circumscribed masses are present, compatible with benign lesion s such as lymph nodes, cysts, and/or fibroadenomas. No suspicious mass, calcification, or architectur al distortion are identified in either breast to suggest malignancy. There has been no suspicious int erval change. IMPRESSION: No mammographic evidence of malignancy. Recommend routine screening mammography in one year. BI-RADS Category 2: Benign finding(s). Reviewed, dictated and finalized at location .
== END 2024-05-02 12:53 | disposition home or self-care (01) ==
LOC: MICIMG 12:53
PROVIDERS: PCP Family Medicine; Visit Provider Nurse Practitioner
DX: Z12.31 Encounter for screening mammogram for malignant neoplasm of breast (principal)
CPT/HCPCS: 77063; 77067

== ENCOUNTER 2024-05-18 12:55 | Outpatient (CLI) | payer OTHER, SELFPAY ==
--- NOTE | ~2024-05-18 | MR_ITS ---
EXAMINATION: MR foot LT wo con DATE: 05/18/2024 13:45 INDICATION: Left ankle pain. Spontaneous rupture of flexor tendon. TECHNIQUE: Magnetic resonance imaging (MRI) of the left mid and hindfoot including the ankle was perf ormed without intravenous contrast. Sequences included sagittal, coronal, and axial proton-density we ighted fast spin echo without and with fat saturation. COMPARISON: None. FINDINGS: Medial ankle ligaments: There is thickening and mild increased signal of the superficial deltoid ligament and amorphous mild increased signal of the deep deltoid ligament with loss of the normal striated pattern but without turner rrounding edema consistent with scarring related to chronic sprain. Lateral ankle ligaments: The anterior and posterior inferior tibiofibular ligaments are normal. Additional thickening and rudolph phous increased signal of the calcaneofibular and anterior talofibular ligament consistent consistent with partial tear. There is a minimal amount of edema in the immediately adjacent fat suggesting eit her subacute or subacute on chronic partial tear. The posterior talofibular ligament is normal. Tendons: Achilles tendon is normal. The peroneus brevis tendon is normal. There is a low-lying peroneus brevis muscle belly which extends to 6 mm caudal to the distal tip of the lateral malleolus. There is mild tendinopathy and longitudinal split tear of the peroneus brevis longus tendon centered at the level o f the tip of the lateral malleolus. The tibialis anterior and extensor hallucis longus and extensor d igitorum longus tendons are normal. The tibialis posterior, flexor digitorum longus and flexor halluc is longus tendons are normal. Plantar fascia: Plantar aponeurosis is normal. Bones/other: Bone alignment is normal. Normal bone marrow signal throughout with no fracture or pathologic marrow replacing process. Fluid: Minimal left ankle joint effusion. No other abnormal fluid collections. IMPRESSION: 1. Thickening and mild increased signal of the deep and superficial deltoid ligaments medially and mo re prominently with small amount of surrounding soft tissue edema laterally at the anterior talofibul ar and calcaneofibular ligaments consistent with sequela of partial tears likely chronic medially and potentially subacute or subacute on chronic at the lateral ankle. 2. Mild tendinopathy and longitudinal split tearing along the peroneus longus tendon. Reviewed, dictated and finalized at location A. IMPRESSION: 1. Thickening and mild increased signal of the deep and superficial deltoid lig aments medially and more prominently with small amount of surrounding soft tiss ue edema laterally at the anterior talofibular and calcaneofibular ligaments co nsistent with sequela of partial tears likely chronic medially and potentially subacute or subacute on chronic at the lateral ankle. 2. Mild tendinopathy and longitudinal split tearing along the peroneus longus t endon.
== END 2024-05-18 12:56 | disposition home or self-care (01) ==
LOC: GOSHIMG 12:57
PROVIDERS: PCP Family Medicine; Visit Provider Podiatrist Foot & Ankle Surgery
DX: M66.372 Spontaneous rupture of flexor tendons, left ankle and foot (principal)
CPT/HCPCS: 73718

== ENCOUNTER 2024-09-12 08:00 | Outpatient (CLI) | payer OTHER, SELFPAY ==
--- OUTSIDE RECORDS SUMMARY | 2024-09-12 08:10 | XMS_ITS | Clinical Summary ---
Author Organization [facility] Address [address] [place] [address]. [place], [place] [id number] [place] [id number] Care Team Providers Care Producer Director Name Role Phone Unavailable Primary Care Provider Unavailabl e Social History Tobacco Use Types Packs/Day Years Used Date Smoking Tobacco: Never Assessed Comments Unknown Sex and Gender Information Value Date Recorded Sex Assigned at Not on file Legal Sex Female 7:01 PM CDT Gender Identity Not on file Sexual Orientation Not on file Last Filed Vital Signs Vital Sign Reading Time Taken Comments Blood Pressure 131/89 06/29/2013 7:33 AM GAS COMPRESSOR OPERATOR Pulse 100 06/29/2013 7:33 AM GAS COMPRESSOR OPERATOR Temperature - - Respiratory Rate - - Oxygen Saturation - - Inhaled Oxygen Concentration - - Weight 94.8 kg (209 lb) 06/29/2013 7:33 AM GAS COMPRESSOR OPERATOR Height 162.6 cm (5' 4 ) 06/29/2013 7:33 AM GAS COMPRESSOR OPERATOR Body Mass Index 35.87 06/29/2013 7:33 AM GAS COMPRESSOR OPERATOR Plan of Treatment Health Maintenance Due Date Last Done Comments Cervical Cancer Screening Pa p Smear (Age 30 to 64) Every 3 Years 1976 Colorectal Cancer Screening Colonoscopy (10 Years) 1976 Annual Physical 1979 Hepatitis C 1994 DTaP, Tdap and Td Vaccines ( 1 - Tdap) 1995 Hepatitis B Vaccines (1 of 3 - 19+ 3-dose series) 1995 Cervical Cancer Screening Pa p with HPV Testing (Age 30 to 64) Every 5 Years 2006 Cervical Cancer Screening with HPV 2006 Mammogram Screening 2016 COVID-19 Vaccine (2023-2 5 season) 2024 Influenza Adult (#1) 2024 Meningococcal B Vaccine Aged Out No l onger eligible based on patient's age to complete this topic Meningococcal Vaccine Aged Out No kylee manolo eligible based on patient's age to complete this topic Pneumococcal Vaccine: Pediat rics (0 to 5 Years) and At-Risk Patients (6 to 64 Years) Aged Out No longer eligible b ased on patient's age to complete this topic RSV Immunizations Under 20 Months Aged Out No longer eligible based on patient's age to complete this topic
--- OUTSIDE RECORDS SUMMARY | 2024-09-12 08:10 | XMS_ITS | Clinical Summary ---
Author Organization [facility] Address [address] [place] [address] Care Team Providers Care Vp Scientific Name Role Phone Miguel Fleming MD Primary Care Provider [phone] Allergies Active Allergy Reactions Criticality Noted Date Comments Metronidazole Hives,Other (See Comments),Swelling High 03/19/2015 swelling Medications drospirenone, contraceptive, (Slynd) 4 mg (28) Tablet Take by mouth daily. Active montelukast (SINGULAIR) 10 mg tablet Take 10 mg by mouth Continuous as needed. Active escitalopram oxalate (LEXAPRO) 20 mg tablet Take 20 mg by mouth daily. Active meth/meblue/sod phos/psal/hyos (URIBEL ORAL) Take by mouth Continuous as needed. Active omeprazole (PriLOSEC) 10 mg Capsule, Delayed Release(E.C.) Take 40 mg by mouth 1 time daily as needed. Active Immunizations Immunization Administration Dates Next Due (SpamLion)(12 YR UP) COVID-19 VACCINE - EMERGENCY USE AUTHORIZATION, MRNA, [id number](PF) 30 MCG/0.3 ML IM SUSP 10/24/2020,10/03/2020 Influenza Seasonal Unspecified Formulation IM Social History Tobacco Use Types Packs/Day Years Used Date Smoking Tobacco: Never Comments Unknown Sex and Gender Information Value Date Recorded Sex Assigned at Not on file Legal Sex Female 12:51 PM CDT Gender Identity Not on file Sexual Orientation Not on file Last Filed Vital Signs Vital Sign Reading Time Taken Comments Blood Pressure 146/96 12/28/2020 9:00 PM CDT Pulse 82 12/28/2020 9:00 PM CDT Temperature 36.8 ??C (98.3 ??F) 12/28/2020 4:55 PM CD T Respiratory Rate 17 12/28/2020 9:00 PM CDT Oxygen Saturation 97% 12/28/2020 9:00 PM CDT Inhaled Oxygen Concentration - - Weight 110.2 kg (243 lb) 12/28/2020 4:55 PM CDT Height 162.6 cm (5' 4 ) 12/28/2020 4:55 PM CDT Body Mass Index 41.71 12/28/2020 4:55 PM CDT Plan of Treatment Health Maintenance Due Date Last Done Comments PNEUMOCOCCAL VACCINE 0-64 YE ARS (1 of 2 - PCV) 1982 DIABETES ANNUAL FOOT EXAM 1994 DIABETES ANNUAL RETINAL EXAM 1994 DIABETES MICROALBUMIN ANNUAL SCREEN 1994 LDL CHOLESTEROL ANNUAL 1994 DTAP/TDAP/TD VACCINES (1 - Tdap) 1995 HEPATITIS B VACCINES (1 of 3 - 19+ 3-dose series) 1995 DIABETES HBA1C Q 6 MONTHS 02/28/2016 08/30/2015 BREAST CANCER SCREENING 2016 COLORECTAL SCREENING 2021 Colorectal Cancer Screening 2021 FIT-DNA Q 3 years 2021 FIT/FOBT Q 1 year 2021 Flex Sig/CT Colonography Q 5 years 2021 CERVICAL CANCER SCREENING 09/30/2023 09/30/2020, 11/2016 INFLUENZA VACCINE (#1) 2024 05/16/2020 COVID-19 Vaccine ( season) 04/15/202407/2021, 10/03/2020 Insurance RX [facility] [employer] [facility] INDIVIDUAL EXCHANGE [id number] Care Teams Vp Scientific Relationship Specialty Start Date End Date Miguel Fleming MD [address] [place] [id number] PCP - General Family Practice 10/03/20
--- OUTSIDE RECORDS SUMMARY | 2024-09-12 08:10 | XMS_ITS | Patient Health Summary ---
Author Organization [facility] Address [address] [facility] [place] [address] Care Team Providers Care Motor Vehicle Licence Examiner Name Role Phone Unavailable Primary Care Provider Unavailabl e Note from [facility],non-owned Affiliates and Associated Physician Practices is amultiple site organization consisting of ambulatory clinics and hospital sitesin [place], [place], [place] and [place]. This disclosure is being madepursuant to the Care Everywhere program and may not contain all information available regarding this patient. Last updated 18.[facility] Allergies * Clarithromycin * Metronidazole Medications * Be aware that medications may not be up to date on this document. Alwaysverify current medications with the patient. * Norethin Colton-Eth Estrad-FE (MINASTRIN 24 FE) 1-20 MG-MCG(24) tablet Take 1 Tab by mouth once daily * citalopram (CELEXA) 20 MG tablet Take 20 mg by mouth once daily Active Problems Problem Noted Date Diagnosed Date PCOS (polycystic ovarian syndrome) 12/13/2016 Anxiety 12/13/2016 Asthma 12/13/2016 Social History Tobacco Use Types Packs/Day Years Used Date Smoking Tobacco: Former Cigarettes 1 - 1996 Smokeless Tobacco: Never Alcohol Use Standard Drinks/Week Comments Yes 0 (1 standard drink = 0.6 oz pur e alcohol) Sex and Gender Information Value Date Recorded Sex Assigned at Not on file Gender Identity Not on file Sexual Orientation Not on file Last Filed Vital Signs Vital Sign Reading Time Taken Comments Blood Pressure 138/86 09/05/2018 2:40 PM DESIGN DIRECTOR Pulse 74 09/05/2018 2:40 PM DESIGN DIRECTOR Temperature 37 ??C (98.6 ??F) 09/05/2018 2:40 PM DESIGN DIRECTOR Respiratory Rate 16 09/05/2018 2:40 PM DESIGN DIRECTOR Oxygen Saturation 99% 09/05/2018 2:40 PM DESIGN DIRECTOR Inhaled Oxygen Concentration - - Weight 93.9 kg (207 lb) 09/05/2018 2:40 PM DESIGN DIRECTOR Height 162.6 cm (5' 4 ) 09/05/2018 2:40 PM DESIGN DIRECTOR Body Mass Index 35.53 09/05/2018 2:40 PM DESIGN DIRECTOR Procedures * INFLUENZA A+B - POINT OF CARE (AMB)(Performed 09/05/2018) Performed for Acute pharyngitis, unspecified etiology * STREP A SCREEN - POINT OF CARE (AMB) STL(Performed 09/05/2018) Performed for Acute pharyngitis, unspecified etiology Results * INFLUENZA A+B - POINT OF CARE (AMB) (09/05/2018 2:50 PM DESIGN DIRECTOR) Influenza A Antigen Rapid Negative Negative Influenza B Antigen Rapid Negative Negative Influenza Internal Control Positive NEGATIVE - POSITIVE Influenza Lot Number [id number] Influenza Expiration Date Other NASOPHARYNGEAL SWAB / Unknown 09/05/2018 2:50 PM DESIGN DIRECTOR Immanuel Sanders APRN-[facility] RE ORDERABLES * STREP A SCREEN (09/05/2018 2:49 PM DESIGN DIRECTOR) Strep A Rapid POCT Negative Negative Strep A Internal Control Present Lot # [id number] Expiration Date [id number] Throat ENTIRE THROAT (SURFACE REGION OF NECK) / Unknown 09/05/2018 2:49 PM DESIGN DIRECTOR [facility] [place] RE ORDERABLES
--- OUTSIDE RECORDS SUMMARY | 2024-09-12 08:10 | XMS_ITS | Data Portability ---
Author Organization [place] - [facility], Main Office Address [address] [place] [address] Care Team Providers Care Library Consultant Name Role Phone KELSEA LOPEZ Primary Care Provider KELSEA LOPEZ Referring Provider Assessment Encounter Date Assessment Date Assessment LastModified by Organization Details LastModified Time 07/11/2023 07/11/2023 Patient has recurrent trochanteric bursitis of the right hip as described. We talked about treatment options today in detail she is going to work on weight loss aggressively her goal is to lose 80 lb. She wanted to try a shot of cortisone and oral prednisone along with course of physical therapy we will get her set up. Under sterile conditions at her request I injected the patient's right hip trochanteric bursa in the office with 4 cc 0.5% bupivacaine and 20 mg of Kenalog. Patient tolerated the procedure well. I will see her back in 6 weeks to see what impact treatment has had she voiced understanding agrees above plan she will call for any further problems difficulties or questions. I have advised her that multiple injections could possibly weaken the tendinous attachment at the trochanteric region so we will try to limit this and she will work on other measures to help with her trochanteric bursitis if it becomes a chronic issue. [email or web address] Not available 07/11/2023 10:38:23 Plan of Treatment Reminders Order Date Submit Date Provider Last Modified By Organization Details Last Modified Time Details Appointments None recorded. Lab None recorded. Referral physical therapist referral - please contact patient to schedule 2022 023 [facility], [address], [place], [address], 11:45:28 Procedures injection/ aspiration joint/burs a (PROC) 2022 023 [email or web address] In-Office Order, Internal Use Only DO Not Attach Compendium DO Not Attach Compendium, Do Not Delete/merge, [address] 10:07:15 Surgeries None recorded. Imaging XR, hip + pelvis, unilateral 2022 023 [email or web address] [facility] [place], [address], [place], [id number], 10:39:20 Medication Orders bupivacain e HCl 0.5 % (5 mg/mL) injection solution 2022 023 [email or web address] [facility], [address], [place], [phone], 10:12:00 Kenalog 10 mg/mL suspension for injection 2022 023 [email or web address] [facility] #45600, [address], [place], [phone], 10:12:00 prednisone 10 mg tablets in a dose pack 2022 023 [email or web address] [facility], [address] [place], [place], [phone], 16:55:25 Patient TargetsNo targets recorded. Patient InstructionsNo instructions recorded. Reason for Referral Physical Therapist Referral for Trochanteric bursitis of right hip please contact patient to schedule Referring Physician: Frank Knight, Orthopedic Surgery, Encounter Date: 07/11/2023 Results Created Date Observation Date Name Description Value Unit Range Abnormal Flag Note LastModifiedBy Organization Detail LastModifiedTime 01/05/20 22 XR, hip + pelvi s, unila teral No observ ation record ed. [id number] [facility] [place] [address], [place], [id number], 10/13/2022 07:51:29 07/11/20 23 XR, hip + pelvi s, unila teral No observ ation record ed. [email or web address] [facility] [place] [address], [place], [id number], 07/11/2023 10:39:19 Result Notes None recorded. Problems Name Problem SNOMED Code Status Onset Date Resolution Date Notes Provider Name and Address Organization Details Recorded Time Noninfecti ous gastroente ritis 69901171 Active Not Available [facility] 3 07:45:40 Anxiety disorder 151511367 Active Not Available [facility] 3 07:45:40 Current tear of medial cartilage AND/OR meniscus of knee Active Not Available [facility] 3 07:45:40 Pain in right hip joint 3087856945658 02 Active 2021 Not Available [facility] 3 07:45:40 Trochanter ic bursitis of right hip 5259112746894 00 Active 2021 Not Available [facility] 3 07:45:40 Acute pharyngiti s 749360773 Active Not Available [facility] 3 07:45:40 Osteoarthr itis 403073409 Active Not Available [facility] 3 07:45:40 Acute gastroente ritis 73075505 Active Not Available [facility] 3 07:45:40 Problem Notes None recorded. Procedures Surgical History Date Name Laterality Status Provider Name and Address Organization Details Recorded Time cholecystectomy completed RADHA Schneider [employer] [facility] 07/11/2023 10:04:17 Appendectomy completed RADHA Amado [employer] [facility] 07/11/2023 10:04:30 Imaging Results Imaging Date Name Status LastModified by Organiz ation Details LastModified Time 01/04/2022 XR, hip + pelvis, unilateral completed [id number] [facility] [place] [address], [place], [address], 10/13/2022 07:51:29 07/11/2023 XR, hip + pelvis, unilateral completed [email or web address] [facility] [place] [address], [place], [address], 07/11/2023 10:39:19 Procedure Notes None recorded. Medical Equipment None Reported. Allergies Allergen ID Allergen Name Allergen Category Reaction Reaction Severity Criticality Documentation Date Start Date Code Code System Note Provider Name and Address Organization Details Recorded Time 80268 Flagyl medicatio n rash Not available Not available 10/13/2022 6 RxNorm SWELL ING Not Available [facility] 07:51:16 40240 Wellbutri n medicatio n Not available Not available Not available 07/11/2023 60682 RxNorm menta l RADHA Amado, [place] [facility] 09:58:36 Medications Name Sig Start Date Stop Date Status Note LastModified by Organization Details LastModified Time prednisone 10 mg tablet 01/04 completed Not Available Not Available Not Available doxycycline hyclate 100 mg capsule active Not Available Not Available N ot Available ketoconazol e 2 % shampoo APPLY TOPICALLY 2 TIMES A WEEK 01/04 completed Not Available Not Available Not Available azithromyci n 250 mg tablet TAKE 2 TABLETS BY MOUTH FOR 1 DAY THEN TAKE 1 TABLET BY MOUTH DAILY FOR 4 DAYS 07/11 completed Not Available Not Available Not Available ibuprofen 800 mg tablet 01/04 completed Not Available Not Available Not Available fluconazole 150 mg tablet TAKE 1 TABLET BY MOUTH ONCE FOR 1 DAY 07/11 completed Not Available Not Available Not Available benzonatate 200 mg capsule 01/04 completed Not Available Not Available Not Available citalopram 10 mg tablet 01/04 completed Not Available Not Available Not Available metronidazo le 0.75 % (37.5 mg/5 gram) vaginal gel INSERT 1 APPLICATO RFUL VAGINALLY AT BEDTIME FOR 5 DAYS 07/11 completed Not Available Not Available Not Available bupivacaine HCl 0.5 % (5 mg/mL) injection solution Take 20 mg by injection route. 2022 active Not Available Not Available Not Avai lable terconazole 0.8 % vaginal cream 07/05 completed Not Available Not Available Not Available amlodipine 2.5 mg tablet TAKE 1 TABLET BY MOUTH DAILY 01/04 completed Not Available Not Available Not Available metronidazo le 500 mg tablet 07/05 completed Not Available Not Available Not Available amlodipine 5 mg tablet TAKE 1 TABLET BY MOUTH DAILY 07/11 completed Not Available Not Available Not Available ciprofloxac in 500 mg tablet TAKE 1 TABLET BY MOUTH EVERY 12 HOURS FOR 5 DAYS 01/04 completed Not Available Not Available Not Available omeprazole 40 mg capsule,del ayed release Take 1 capsule every day by oral route for 30 days. 07/19 completed Not Available Not Available Not Available tramadol 50 mg tablet active Not Available Not Available No t Available triamcinolo ne acetonide 0.1 % topical cream 01/04 completed Not Available Not Available Not Available prednisone 10 mg tablets in a dose pack Take 1 tab by mouth, 3 times a day for 3 daysTake 1 tab by mouth 2 times a day for 2 daysTake 1 tab by mouth once a day for 1 day 2022 active Not Available Not Available Not Avai lable nystatin-tr iamcinolone 100,000 unit/gram-0 .1 % topical ointment 07/05 completed Not Available Not Available Not Available meloxicam 7.5 mg tablet 01/04 completed Not Available Not Available Not Available ofloxacin 0.3 % ear drops INSTILL 10 DROPPERFU L TO AFFECTED EAR DAILY FOR 7 DAYS 07/11 completed Not Available Not Available Not Available amoxicillin 875 mg tablet TAKE 1 TABLET BY MOUTH EVERY 12 HOURS FOR 5 DAYS 07/11 completed Not Available Not Available Not Available alprazolam 0.25 mg tablet 07/05 completed Not Available Not Available Not Available dicyclomine 20 mg tablet TAKE 1 TABLET BY MOUTH FOUR TIMES DAILY NEEDED FOR ABDOMINAL DISCOMFOR T 01/04 completed Not Available Not Available Not Available Kenalog 10 mg/mL suspension for injection Take 20 mg by injection route. 2022 active [facility]: 0003- 0494- 20 Not Available Not Available Not Available benzonatate 100 mg capsule TAKE 1 CAPSULE BY MOUTH THREE TIMES DAILY FOR 10 DAYS NEEDED FOR COUGH 07/11 completed Not Available Not Available Not Available hyoscyamine sulfate 0.125 mg tablet 07/05 completed Not Available Not Available Not Available clotrimazol e-betametha sone 1 %-0.05 % topical cream APPLY TO THE AFFECTED AREA TWICE DAILY FOR 2 WEEKS 07/11 completed Not Available Not Available Not Available omeprazole 20 mg capsule,del ayed release TAKE 1 CAPSULE BY MOUTH TWICE A DAY active Not Available Not Available No t Available montelukast 10 mg tablet TAKE 1 TABLET BY MOUTH EVERY DAY 07/11 completed Not Available Not Available Not Available ibuprofen 600 mg tablet 01/04 completed Not Available Not Available Not Available albuterol sulfate HFA 90 mcg/actuati on aerosol inhaler INHALE 1 PUFF BY MOUTH EVERY 4 TO 6 HOURS NEEDED FOR SHORTNESS OF BREATH OR WHEEZING active Not Available Not Available No t Available clobetasol 0.05 % scalp solution APPLY TOPICALLY TO THE AFFECTED AREA TWICE DAILY NEEDED FOR DERMATITI S 07/11 completed Not Available Not Available Not Available ondansetron 4 mg disintegrat ing tablet DISSOLVE 1 TABLET ON THE TONGUE EVERY 6 HOURS 07/11 completed Not Available Not Available Not Available amoxicillin 875 mg-potassiu m clavulanate 125 mg tablet TAKE 1 TABLET BY MOUTH EVERY 12 HOURS FOR 10 DAYS 07/11 completed Not Available Not Available Not Available oxycodone 5 mg tablet TAKE 1 TABLET BY MOUTH EVERY 6 HOURS NEEDED FOR PAIN 07/11 completed Not Available Not Available Not Available azithromyci n 500 mg tablet TAKE 1 TABLET BY MOUTH ONCE DAILY FOR 3 DAYS 07/11 completed Not Available Not Available Not Available escitalopra m 10 mg tablet TAKE 1 TABLET BY MOUTH EVERY DAY 07/05 completed Not Available Not Available Not Available escitalopra m 20 mg tablet TAKE 1 TABLET BY MOUTH EVERY DAY active Not Available Not Available No t Available cyclobenzap rine 5 mg tablet TAKE 1 TABLET BY MOUTH THREE TIMES DAILY NEEDED FOR MUSCLE SPASM 01/04 completed Not Available Not Available Not Available tinidazole 500 mg tablet 07/05 completed Not Available Not Available Not Available Loestrin 24 Fe 1 mg-20 mcg (24)/75 mg (4) tablet active Not Available Not Available Not Available lidocaine (PF) 10 mg/mL (1 %) injection solution In office injection administe red by the provider 01/04 completed [facility]: 0409- 4276- 17 Not Available Not Available Not Available lidocaine (PF) 5 mg/mL (0.5 %) injection solution Take 30 mg by injection route. 07/11 completed Not Available Not Available Not Available Uribel 118 mg-10 mg-40.8 mg-36 mg capsule TAKE 1 CAPSULE BY MOUTH EVERY DAY NEEDED FOR URINARY SYMPTOMS 07/11 completed Not Available Not Available Not Available ropivacaine (PF) 5 mg/mL (0.5 %) injection solution Take 20 mg by injection route. 07/11 completed Not Available Not Available Not Available Lo Minastrin Fe 1 mg-10 mcg (24)/10 mg (2) tablet chew and tablet Take 1 tablet every day by oral route as directed. 2012 active Not Available Not Available Not Avai lable Mibelas 24 Fe 1 mg-20 mcg (24)/75 mg (4) chewable tablet 01/04 completed Not Available Not Available Not Available Plenvu 140 gram-9 gram-5.2 gram powder packs MIX AND DRINK DIRECTED 01/04 completed Not Available Not Available Not Available Slynd 4 mg (28) tablet TAKE 1 TABLET BY MOUTH DAILY active Not Available Not Available No t Available Wegovy 0.25 mg/0.5 mL subcutaneou s pen injector 01/04 completed Not Available Not Available Not Available Mounjaro 2.5 mg/0.5 mL subcutaneou s pen injector 2.5 MG (0.5 ML) SUBCUTANE OUSLY WEEKLY FOR 4 WEEKS 07/11 completed Not Available Not Available Not Available Vitals Date Recorded Body mass index (BMI) Body height Body weight Provider Name and Address Organization Details Last Updated DateTime 01/04/2022 41.5 kg/m2 162.56 cm 481421.82 g [facility] 10/13/2022 07:42:53 Date Recorded Body mass index (BMI) Body height Body weight Provider Name and Address Organization Details Last Updated DateTime 02/18/2022 41 kg/m2 162.56 cm 177596.58 g Not Available [facility] 10/13/2022 07:42:53 Date Recorded Body height Body mass index (BMI) Body weight Provider Name and Address Organization Details Last Updated DateTime 07/11/2023 162.56 cm 43.1 kg/m2 303391.4 g 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 Mental Status None recorded. Family History Relationship Description Onset Age of this Age Resolved Age Notes LastModified by Organization Details LastModified Time Father Heart disease [id number] Not available 10/13/2022 07:41:21 Father Blood coagulation disorder [id number] Not available 10/13/2022 07:41:21 Mother Heart disease [id number] Not available 10/13/2022 07:41:21 Mother Family history of malignant neoplasm [id number] Not available 10/13/2022 07:41:21 Mother Diabetes mellitus [id number] Not available 10/13/2022 07:41:21 Father Hypertensive disorder [email or web address] Not available 2022 10:02:30 Unspecified Relation Heart disease matern al grandp arent [email or web address] Not available 07/11/2023 10:02:09 Maternal Grandfather Family history of stroke [email or web address] Not available 2022 10:02:19 Maternal Grandfather Diabetes mellitus [email or web address] Not available 2022 10:02:56 Brother Hypertensive disorder [email or web address] Not available 2022 10:02:33 Mother Hypertensive disorder [email or web address] Not available 2022 10:02:38 Medical History Condition Response USE OF NSAIDS Y ULCERS Y Gynecological HistoryNo gynecological history recorded. Obstetrics History GPAL:G 0 P 0 0 0 0 Past Encounters Encounter ID Performer Location Encounter Start Date Encounter Closed Date Diagnosis/Indication Diagnosis SNOMED-CT Code Diagnosis ICD10 Code Diagnosis Note [id number] [facility] [place] [address] [place] [address] 01/04/2022 00:00:00 01/04/2022 11:49:54 [id number] [facility] [place] [address] [place] [address] 02/18/2022 00:00:00 02/18/2022 11:10:27 [id number] HARDIK Garcia [facility] [place] [address] [place] [address] 07/11/2023 09:42:30 07/11/2023 10:37:20 Pain in right hip joint 2247991882 87001 M25.551 Trochanter ic bursitis of right hip 3900914560 67244 M70.61 Health Concerns Section Related Observation LastModified by Organization Detai ls LastModified Time None Recorded Concern Status LastModified by Organization Details LastModified Time None Recorded Advance Directives Directive None Recorded Payers Encounter Date Sequence Insurance Name Policy Number Policy Navarro Covered Member ID Navarro Member ID Guarantor Name 07/11/2023 1 [facility] Herbert Valentine [id number] Herbert Valentine Notes Date Note Type Note Provider Name and Address Organization Details Recorded Time 07/11/2023 text/html Patient returns complaining of right hip pain over the trochanteric region. About a year and a half ago she had trochanteric bursitis of the right hip the shot of cortisone gave her excellent relief only recently it started to flare up again. Denies any specific trauma or injury really does not have any groin pain the pain is localized to the trochanteric region radiates down the side of her hip just a bit. Her BMI is little high at 43.1 she knows she needs to get some weight off she has been trying to work on this started on Ozempic however this did not work well with her history of celiac disease and she had significant GI issues so she had to stop taking it. the patient knows that if she gets rid of some of her weight this will help her goal is to lose 80 lb over the next year so. Currently she is 5 ft 4 in tall 251 lb. The patient comes in today stating that she is having significant pain that causes tenderness over the trochanteric region cannot sleep on that side if she sits too long it starts to throb and ache. Has had no trauma or injury no weakness no radicular pain down the leg. She comes in today requesting evaluation treatment of her trochanteric bursitis right hip.Past medical history sheet was reviewed and signed on the intake sheet today's date drug allergies current medications family social history previous surgical history 10 point review of systems was reviewed and discussed in detail today with the patient. HARDIK Garcia [address] [place] [address] [address], [place], [address], [place] [facility] 07/11/2023 10:40:09 OBGyn Episode No OBEpisode recorded.
--- OUTSIDE RECORDS SUMMARY | 2024-09-12 08:10 | XMS_ITS | Clinical Summary ---
Author Organization [facility] Address [address] [place] [address] Care Team Providers Care Core Blower Name Role Phone Unavailable Primary Care Provider Unavailabl e Source Comments [facility],non-owned Affiliates and Associated Physician Practices is amultiple site organization consisting of ambulatory clinics and hospital sitesin [place], [place], [place] and [place]. This disclosure is being madepursuant to the Care Everywhere program and may not contain all information available regarding this patient. Last updated [facility] Allergies Active Allergy Reactions Criticality Noted Date Comments Clarithromycin 12/13/2016 Metronidazole 12/13/2016 Medications * Be aware that medications may not be up to date on this document. Alwaysverify current medications with the patient. Medication Sig Dispensed Refills Start Date End Date Status Norethin Colton-Eth Estrad-FE (MINASTRIN 24 FE) 1-20 MG-MCG(24) tablet Take 1 Tab by mouth once daily Active citalopram (CELEXA) 20 MG tablet Take 20 mg by mouth once daily Active Active Problems Problem Noted Date Diagnosed Date PCOS (polycystic ovarian syndrome) 12/13/2016 Anxiety 12/13/2016 Asthma 12/13/2016 Family History Medical History Relation Name Comments Asthma Father Eczema Father Emphysema Father Hypercholesterolemia Father Hypertension Father Dementia Mother Hypercholesterolemia Mother Hypertension Mother Relation Name Status Comments Brother Alive Father Alive Mother Alive Social History Tobacco Use Types Packs/Day Years Used Date Smoking Tobacco: Former Cigarettes 1996 Smokeless Tobacco: Never Alcohol Use Standard Drinks/Week Comments Yes 0 (1 standard drink = 0.6 oz pur e alcohol) Sex and Gender Information Value Date Recorded Sex Assigned at Not on file Gender Identity Not on file Sexual Orientation Not on file Last Filed Vital Signs Vital Sign Reading Time Taken Comments Blood Pressure 138/86 09/05/2018 2:40 PM CLIENT SERVER PROGRAMMER Pulse 74 09/05/2018 2:40 PM CLIENT SERVER PROGRAMMER Temperature 37 ??C (98.6 ??F) 09/05/2018 2:40 PM CLIENT SERVER PROGRAMMER Respiratory Rate 16 09/05/2018 2:40 PM CLIENT SERVER PROGRAMMER Oxygen Saturation 99% 09/05/2018 2:40 PM CLIENT SERVER PROGRAMMER Inhaled Oxygen Concentration - - Weight 93.9 kg (207 lb) 09/05/2018 2:40 PM CLIENT SERVER PROGRAMMER Height 162.6 cm (5' 4 ) 09/05/2018 2:40 PM CLIENT SERVER PROGRAMMER Body Mass Index 35.53 09/05/2018 2:40 PM CLIENT SERVER PROGRAMMER Plan of Treatment Health Maintenance Due Date Last Done Comments COLOGUARD (AGES 45-75) - COL ON CA SCREENING 1976 COLON MONITORING 1976 COLONOSCOPY - COLON CA SCREENING 1976 CT COLONOGRAPHY - COLON CA SCREENING 1976 Colorectal Cancer Screening 1976 FIT - COLON CA SCREENING 1976 FLEX SIG - COLON CA SCREENING 1976 LIPID TESTING 1976 MAMMOGRAM 1976 HIV SCREENING 1991 HEPATITIS C SCREENING 04/30/1994 DTAP/TDAP/TD VACCINES (1 - Tdap) 1995 HEPATITIS B VACCINE (1 of 3 - 19+ 3-dose series) 1995 PNEUMOCOCCAL VACCINE (1 of 2 - PCV) 1995 PAP with HPV 2006 SCREENING FOR DIABETES 09/05/2018 COVID-19 VACCINE (1 - 2023-2 5 season) 2024 INFLUENZA VACCINE (#1) 2024 DEPRESSION SCREENING 08/15/2024 ZOSTER VACCINE (1 of 2) 2026 HIB VACCINE Aged Out No longer eligi ble based on patient's age to complete this topic HPV VACCINE Aged Out No longer eligi ble based on patient's age to complete this topic MENINGOCOCCAL (Group B) VACCINE Aged Out No longer eligible based on patient's age to complete this topic MENINGOCOCCAL VACCINE Aged Out No kylee manolo eligible based on patient's age to complete this topic
--- OUTSIDE RECORDS SUMMARY | 2024-09-12 08:11 | XMS_ITS | Data Portability ---
Author Organization [facility] Address [address] [place] [address] Assessment No assessment recorded. Plan of Treatment Reminders Order Date Submit Date Provider Last Modified By Organization Details Last Modified Time Details Appointments None recorded. Lab T4, free, serum 2021 [facility] (Lab), [address], [place], [address], 19:59:25 free T3, quantitativ e, dialysis serum or plasma 2021 [facility] (Lab), [address] [place], [address], 19:59:24 cortisol, saliva [address] (Lab), [address] [place], [address], 15:54:09 T3, reverse, serum 2021 [facility] (Lab), [address] [place], [address], 19:59:26 dhea-sulfat e, serum 2021 [facility] (Lab), [address], [place], [address], 19:59:22 estradiol, serum 2021 [facility] (Lab), [address], [place], [address], 19:59:22 FSH (follicle-s timulating hormone), serum 2021 [facility] (Lab), [address], [place], [address], 19:59:24 HbA1c (hemoglobin A1c), blood 2021 [facility] (Lab), [address], [place], [address], 19:59:25 lh (luteinizin g hormone), serum 2021 [facility] (Lab), [address], [place], [address], 19:59:23 progesteron e, serum 2021 [facility] (Lab), [address], [place], [address], 19:59:23 prolactin, serum 2021 [facility] (Lab), [address] [place], [address], 19:59:23 shbg (sex hormone-bin ding globulin), serum 2021 [facility] (Lab), [address] [place], [address], 2 19:59:25 TSH, serum or plasma 2021 [facility] (Lab), [address] [place], [address], 19:59:24 testosteron e free/testos terone total, ratio, serum 2021 [facility] (Lab), [address], [place], [address], 19:59:26 Referral None recorded. Procedures None recorded. Surgeries None recorded. Imaging None recorded. Medication Orders None recorded. Patient TargetsNo targets recorded. Patient InstructionsNo instructions recorded. Reason for Referral None Reported. Results Created Date Observation Date Name Description Value Unit Range Abnormal Flag Note LastModifiedBy Organization Detail LastModifiedTime 10/06/19 22 10/06/2021 DHEA SULFA TE DHEA-sulfate 100 ug/dL Femal e Range s Age(y ) Range (ug/d L) 10-15 34-28 0 15-20 65-36 8 20-25 148-4 07 25-35 99-34 0 35-45 61-33 7 45-55 35-25 6 55-65 19-20 5 65-75 9-246 > 75 12-15 4 Not Available [facility] (Lab) [address], [place], [address], 10/11/2021 19:59:22 10/06/19 22 10/06/2021 ESTRA DIOL estradiol 8.4 pg/mL This assay was perfo rmed using [employer] ratio n reage nts and test kits. Value s obtai leyla with other assay metho ds or kits canno t be used inter [facility] . Femal e Estra diol Range s: Folli cular phase 12.4- 233 pg/mL Ovula tion phase 41.0- 398 pg/mL Lutea l phase 22.3- 341 pg/mL Postm enopa usal< 5-138 pg/mL Healt hy Pregn ant Women 1st Trime ster1 54-32 43 pg/mL 2nd Trime ster1 561-2 1280 pg/mL 3rd Trime ster8 525-> 56671 pg/mL Not Available [facility] (Lab) [address], [place], [address], 10/11/2021 19:59:22 10/06/19 22 10/06/2021 PROGE STERO NE progesterone 0.12 NG/mL This assay was perfo rmed using [employer] reage nts and test kits. Value s obtai leyla with other assay metho ds or kits canno t be used inter [facility] . Femal e Proge stero ne Range s: Folli cular phase 0.06- 0.89 ng/mL Ovula tion phase 0.12- 12.00 ng/mL Lutea l phase 1.83- 23.90 ng/mL Postm enopa usal< 0.05- 0.13 ng/mL Healt hy Pregn ant Women 1st Trime ster1 1.0-4 4.30 2nd Trime ster2 5.40- 83.30 3rd Trime ster5 8.70- 214.0 0 Not Available [facility] (Lab) [address] [place], [address], 10/11/2021 19:59:22 10/06/19 22 10/06/2021 PROLA CTIN prolactin, total 16.30 NG/mL 4.79-2 3.30 This assay was perfo rmed using [employer] n reage nts and test kits. Value s obtai leyla with other assay metho ds or kits canno t be used inter [facility] . Not Available [facility] (Lab) [address] [facility], [place], [address], 10/11/2021 19:59:23 10/06/19 22 10/06/2021 LH (LUTE NIZIN G HORMO NE) LH 3.7 mIU/m L This assay was perfo rmed using [employer] reage nts and test kits. Value s obtai leyla with other assay metho ds or kits canno t be used inter [facility] . Femal es Mid-F ollic ular: 2.4-1 2.6 mIU/m L Mid-C ycle: 14.0- 95.6 mIU/m L Mid-L uteal : 1.0-1 1.4 mIU/m L Postm enopa use: 7.7-5 8.5 mIU/m L Not Available [facility] (Lab) [address] [facility], [place], [address], 10/11/2021 19:59:23 10/06/19 22 10/06/2021 FSH FSH 6.0 mIU/m L This assay was perfo rmed using [employer] reage nts and test kits. Value s obtai leyla with other assay metho ds or kits canno t be used inter [facility] . Femal es Folli cular : 3.5-1 2.5 mIU/m L Ovula tion: 4.7-2 1.5 mIU/m L Lutea l: 1.7-7 .7 mIU/m L Postm enopa use: 25.8- 134.8 mIU/m L Not Available [facility] (Lab) [address] [facility], [place], [address], 10/11/2021 19:59:24 10/06/19 22 10/06/2021 TSH, REFLE X FREE T4 TSH 3.35 uIU/m L 0.30-5 .33 Not Available [facility] (Lab) [address] [facility], [place], [address], 10/11/2021 19:59:24 10/06/19 22 10/06/2021 FREE T3 T3, free 4.9 pg/mL 2.5-3. 9 high Not Available [facility] (Lab) [address] [facility], [place], [address], 10/11/2021 19:59:24 10/06/19 22 10/06/2021 HUMAN SEX HORMO NE ALEXANDREA NG GLOBU LAW sex hormone binding globulin 31.4 nmole s/L 18.2-1 35.5 Not Available [facility] (Lab) [address] [facility], [place], [address], 10/11/2021 19:59:25 10/06/19 22 10/06/2021 T4 FREE T4, free 0.62 NG/dL 0.60-1 .40 Not Available [facility] (Lab) [address], [place], [address], 10/11/2021 19:59:25 10/06/19 22 10/06/2021 HEMOG LOBIN A1C hemoglobin A1C 5.8 % 0-5.6 high The Ameri can Diabe jane Assoc iatio n recom mends that a prima ry goal of thera py shoul d be a HBA1C of < 7% and that physi cians shoul d reeva luate the treat ment regim en in patie nts with HBA1C value s consi stent ly > 8%. <5.7% Naa l 5.7 - 6.4% Incre ased risk for diabe jane >=6.5 % Diagn ostic of diabe jane <7.0% Goal of thera py >8.0% Actio n sugge sted Not Available [facility] (Lab) [address] [facility], [place], [address], 10/11/2021 19:59:25 10/06/19 22 10/06/2021 TESTO STERO NE, FREE( DIALY SIS) AND TOTAL (LC/M S/MS) testosterone , total 7 NG/dL 2-45 For addit ional infor jayshree buckner e refer to http: //demar alvares.que stdia gnost ics.c om/fa q/Tot alTes toste Radha [facility] (This link is being provi ded for infor guido christensen/ educa rainer l purpo ses only. ) This test was devel maria l and its cam tical perfo rmanc e narendra cteri stics have been deter mined by [facility]. It has not been clear ed or appro lisa by the FDA. This assay has been valid ated pursu ant to the CLIA regul ation s and is used for clini charley purpo ses. Not Available [facility] (Lab) [address] [facility], [place], [address], 10/11/2021 19:59:26 10/06/19 22 10/06/2021 TESTO STERO NE, FREE( DIALY SIS) AND TOTAL (LC/M S/MS) testosterone , free 0.9 pg/mL 0.1-6. 4 This test was devel oped and its cam tical perfo rmanc e narendra cteri stics have been deter mined by [facility]. It has not been clear ed or appro lisa by the FDA. This assay has been valid ated pursu ant to the CLIA regul ation s and is used for clini charley purpo ses. Perfo rming Organ izati on [facility] n: Site ID: [id number] Name: [facility]-Jasen brionna [facility] Addre ss: [id number] [facility] [address] Direc tor: Jimmy amador M.D. Not Available [facility] (Lab) [address] [place], [address], 10/11/2021 19:59:26 10/06/19 22 10/06/2021 T3 REVER SE, LC/MS /MS T3, reverse 9 NG/dL 8-25 This test was devel oped and its cam tical perfo rmanc e narendra cteri stics have been deter mined by [facility] Leo Orantesi ushae Mcalister [place] . It has not been clear ed or appro lisa by FDA. This assay has been valid ated pursu ant to the CLIA regul ation s and is used for clini charley purpo ses. Perfo rming Organ izati on [facility] n: Site ID: [id number] Name: [facility] [place] [place] , Addre ss: [id number] [place] [address] Direc tor: Tamika bashir MD,Ph D,KEITH Not Available [facility] (Lab) [address] [place], [address], 10/11/2021 19:59:26 Result Notes None recorded. Problems Name Problem SNOMED Code Status Onset Date Resolution Date Notes Provider Name and Address Organization Details Recorded Time Gynecologic examination Active 2021 Dalton Lucia MD [address], [place], [address], [facility] 2 19:53:05 Non-alcoholi c fatty liver 497084157 Active 2021 Dalton Lucia MD [address], [place], [address], [facility] 2 19:53:09 Cardiac arrhythmia 531686189 Active 2021 Dalton Lucia MD [address], [place], [address], [facility] 19:53:11 Essential hypertension 61258958 Active 2021 Dalton Lucia MD [address], [place], [address], [facility] 2 19:53:36 Asthma 613181195 Active 2021 Dalton Lucia MD [address], [place], [address], [facility] 2 19:53:38 Deep venous thrombosis 845526421 Active 2021 Dalton Lucia MD [address], [place], [address], [facility] 2 19:53:40 Problem Notes None recorded. Medical Equipment None Reported. Allergies Allergen ID Allergen Name Allergen Category Reaction Reaction Severity Criticality Documentation Date Start Date Code Code System Note Provider Name and Address Organization Details Recorded Time 81340 Flagyl medicatio n Not available Not available Not available 10/06/2021 6 [facility] 16:14:36 Medications Name Sig Start Date Stop Date Status Note LastModified by Organization Details LastModified Time ketoconazol e 2 % shampoo APPLY TOPICALLY 2 TIMES A WEEK active Not Available Not Available No t Available metronidazo le 0.75 % (37.5 mg/5 gram) vaginal gel INSERT 1 APPLICATO RFUL VAGINALLY AT BEDTIME FOR 5 DAYS 10/06 completed Not Available Not Available Not Available amlodipine 2.5 mg tablet TAKE 1 TABLET BY MOUTH DAILY 10/06 completed Not Available Not Available Not Available amlodipine 5 mg tablet TAKE 1 TABLET BY MOUTH EVERY DAY active Not Available Not Available No t Available ciprofloxac in 500 mg tablet TAKE 1 TABLET BY MOUTH EVERY 12 HOURS FOR 5 DAYS 10/06 completed Not Available Not Available Not Available omeprazole 40 mg capsule,del ayed release TAKE 1 CAPSULE BY MOUTH DAILY active Not Available Not Available No t Available ofloxacin 0.3 % ear drops INSTILL 10 DROPS IN EACH EAR DAILY FOR 7 DAYS 10/06 completed Not Available Not Available Not Available amoxicillin 875 mg tablet TAKE 1 TABLET BY MOUTH EVERY 12 HOURS FOR 5 DAYS 10/06 completed Not Available Not Available Not Available dicyclomine 20 mg tablet TAKE 1 TABLET BY MOUTH FOUR TIMES DAILY NEEDED FOR ABDOMINAL DISCOMFOR T active Not Available Not Available No t Available albuterol sulfate HFA 90 mcg/actuati on aerosol inhaler 1 PUFF INHALATIO N EVERY 4 HOURS NEEDED FOR SHORTNESS OF BREATH OR WHEEZING active Not Available Not Available No t Available clobetasol 0.05 % scalp solution APPLY TOPICALLY TO THE AFFECTED AREA TWICE DAILY active Not Available Not Available No t Available amoxicillin 875 mg-potassiu m clavulanate 125 mg tablet TAKE 1 TABLET BY MOUTH TWICE A DAY FOR 7 DAYS 10/06 completed Not Available Not Available Not Available escitalopra m 20 mg tablet TAKE 1 TABLET BY MOUTH EVERY DAY active Not Available Not Available No t Available cyclobenzap rine 5 mg tablet TAKE 1 TABLET BY MOUTH THREE TIMES DAILY NEEDED FOR MUSCLE SPASM active Not Available Not Available No t Available Slynd 4 mg (28) tablet TAKE 1 TABLET BY MOUTH DAILY active Not Available Not Available No t Available Wegovy 0.25 mg/0.5 mL subcutaneou s pen injector active Not Available Not Available Not Available Vitals Date Recorded Body height Body mass index (BMI) Body weight Systolic blood pressure Diastolic blood pressure Systolic blood pressure Diastolic blood pressure Provider Name and Address Organization Details Last Updated DateTime 2 160.02 cm 45.2 kg/m2 232323. 05 g 147 mm[Hg] 91 mm[Hg] 140 mm[Hg] 84 mm[Hg] Isabella Sher [facility] 2 17:25:03 Social History None recorded. Functional Status None recorded. Mental Status None recorded. Family History Nothing Reported. Medical History No medical history recorded. Gynecological HistoryNo gynecological history recorded. Obstetrics History GPAL:G 0 P 0 0 0 0 Past Encounters Encounter ID Performer Location Encounter Start Date Encounter Closed Date Diagnosis/Indication Diagnosis SNOMED-CT Code Diagnosis ICD10 Code Diagnosis Note [id number] Dalton Lucia MD [place] [address] [address] 10/06/2021 15:44:41 10/08/2021 13:53:08 Gynecologic examination 95931644 Z01.419 Obesity 765870837 E66.9 This patient is a 46-year-ol d with class 3 obesity. She has a history of possible arrhythmia , asthma, migraine, hypertensi on possible DVT related to a long COVID. Her mother passed in 2019 that caused her lot of stress and weight gain. We have agreed to complete an extensive evaluation of her obesity and start treatment. She has already been prescribed semaglutid e. She will begin that. I do not see any contraindi cations at this time for that. May not be a candidate for phentermin e. She should have a sleep study given her arrhythmia and her body habitus. She has a short neck that Has a good diameter. We will obtain a more extensive laboratory evaluation . She will have an EKG. She return in 2 weeks to discuss the evaluation . She will have a dietitian consult. We spent over over an hour face-to-fa ce in more than 50% was counseling . We took extensive history. We talked about the evaluation and treatment. We performed body compositio n testing. She was given results to that. Discussed those results for some time. She will return in 2 weeks. Non-alcoho lic fatty liver 854135545 K76.0 Cardiac arrhythmia 88007 7007 I49.9 Essential hypertension 37702677 I10 Asthma 630817342 J45.90 9 Deep venou s thrombosis 095867047 I82.409 Health Concerns Section Related Observation LastModified by Organization Detina ls LastModified Time None Recorded Concern Status LastModified by Organization Details LastModified Time None Recorded Advance Directives Directive None Recorded Payers Encounter Date Sequence Insurance Name Policy Number Policy Navarro Covered Member ID Navarro Member ID Guarantor Name 10/06/2021 1 [employer] - CHOICE (POS II) [id number] Herbert Valentine [id number] Jamee Gold Serge Notes Date Note Type Note Provider Name and Address Organization Details Recorded Time 10/06/2021 text/html this patient is a 46-year-old female with class 3 obesity. The patient's weight is causing her physical pain. She has pain her knees and ankles. She reports some mood changes associated with her weight. She feels depressed. She has a hard time moving Well. Her BMI is 45. she has gained 25 lb in the last year. She has steadily gained weight over the last 10 years and also reported a 90 lb weight gain about 15 years ago. Her weight problem began in adulthood. She was a very thin individual in her early 20s. Marriage, travel, all called, and medications along with job change have contributed to weight gain. She has tried weight watchers. She has also used used keto diet. She lost 44 lb and 4 months at 1 time. She has problem with stress eating and has a crazy work schedule. She is a picky eater and has a problem with textures. She has used bupropion with intense side effects that were psychiatric in nature. She was prescribed semaglutide but is not tried yet. She had breakfast 5 times a week. she has history of a eating disorder. She was bili make in her 20s. She occasionally loses control when she eats. She does not eat at night. She drinks water and diet Pepsi. She does not drink sugar sweetened beverages. She eats 3-4 times per day. She reports stress eating. She has many food triggers that include stress, boredom, parties, eating out, anger. She likes she can tenderness and Kazakh fries, pizza send Blizzard. She has she has cravings for sugar and high fat. She is not doing any exercise at this time but Has walked in the past. Her joint pain limits her ability to exercise. She sleeps 7-9 hours per night. She feels mostly rested but she does snore. She has not been told she stops breathing. But she does nap occasionally. She has had a cardiac arrhythmia that is nonspecific and may have been transient . She has nonalcoholic fatty liver disease. She has had a elevated blood pressures at times and use to have elevated triglycerides. She has polycystic ovarian syndrome and reflux. She has anxiety. And possibly interstitial cystitis. She has history of cholecystectomy. Social history is unremarkable. Her mood is reasonably good. She does report some poor concentration, irritability, anxiety. She denies any panic her tear, excessive worry. No suicidal ideation. Dalton Lucia MD [address], [place], [address], [facility] 10/07/2021 19:54:02 OBGyn Episode No OBEpisode recorded.
--- OUTSIDE RECORDS SUMMARY | 2024-09-12 08:11 | XMS_ITS | Encounter Summary ---
Author Organization [facility] Address [address] [place] [address] Care Team Providers Care Director Of Vocational Guidance Name Role Phone Miguel Fleming MD Primary Care Provider [phone] Encounter Details Date Type Department Care Team (Late st Contact Info) Description 05/16/2020 Lab Requisition [facility] [address] [facility] [address] [place] [address] [place] [address] [facility] [address] [place] [address] Encounter for pre-employment examination Social History Tobacco Use Types Packs/Day Years Used Date Smoking Tobacco: Never Assessed Comments Unknown Sex and Gender Information Value Date Recorded Sex Assigned at Not on file Legal Sex Female 12:51 PM CDT Gender Identity Not on file Sexual Orientation Not on file documented as of this encounter Plan of Treatment Not on file documented as of this encounter Procedures Procedure Name Priority Date/Time Associated Diagnosis Comments HEPATITIS B SURFACE AB, QUANT Routine 05/16/2020 10:40 AM CDT Encounter for pre-employment examination VARICELLA ZOSTER IGG Routine 05/16/2020 10:40 AM CDT Encounter for pre-employment examination documented in this encounter Results * VARICELLA ZOSTER IGG (05/16/2020 10:40 AM CDT) VARICELLA ZOSTER IGG Immune - Positive Immune - Positive 05/17/2020 12:38 PM CDT [facility] VARICELLA IGG INDEX 2.43 05/17/2020 12:38 PM CDT [facility] Comment: Nonimmune - Negative ?<0.60 AI Equivocal ?0.60 - 0.89 AI ? Immune - Positive ? >0.89 AI Blood Collection / Unknown 05/16/2020 10:40 AM CDT 05/16/2020 12:53 PM CDT Narrative [facility] - 05/17/2020 12:38 PM CDT A positive result suggests response to immunization or prior exposure to the virus. Harjit Morrissey MD CHEMISTRY ORDERABLES Final R esult Performing Organization Address City/[facility]/ZIP Co de Phone Number [facility] CLIA# [id number] [address] [place] [address] * (ABNORMAL) HEPATITIS B SURFACE AB, QUANT (05/16/2020 10:40 AM CDT) HEPATITIS B SURF AB,QN <4.0 mlU/mL 05/16/2020 6:58 PM CDT [facility] HEPATITIS B SURFACE AB INTERP Non-reacti ve(A) See Interp 05/16/2020 6:58 PM CDT [facility] Blood Collection / Unknown 05/16/2020 10:40 AM CDT 05/16/2020 12:53 PM CDT Narrative [facility] - 05/16/2020 6:58 PM CDT Patient does not have immunity to Hepatitis B virus. ??This assay is used to determine immune status to Hepatitis B as greater than or equal to 10 mIU/mL as per CDC guidelines (MMWR:vol 55: RR-16, 2006). Harjit Morrissey MD CHEMISTRY ORDERABLES Final R esult Performing Organization Address City/[facility]/ZIP Co de Phone Number [facility] CLIA# [id number] [address] [place] [address] documented in this encounter Visit Diagnoses Diagnosis Encounter for pre-employment examination Health examination of defined subpopulation documented in this encounter Care Teams Director Of Vocational Guidance Relationship Specialty Start Date End Date Miguel Fleming MD [address] [place] [address] PCP - General Family Practice 10/03/20 documented as of this encounter
[2024-09-12 08:29] LABS: Basophils Absolute Auto 0.1 K/mm3 (0.0-0.1); Basophils Percent Auto 0.5 % (0.2-1.2); Eosinophils Absolute Auto 0.1 K/mm3 (0-0.3); Eosinophils Percent Auto 1.5 % (0-4.4); Hematocrit 41.7 % (37.0-47.0); Hemoglobin 13.2 g/dL (12.0-15.0); Immature Granulocyte Absolute 0.03 K/mm3 (0.00-0.031); Immature Granulocyte Percent A 0.3 % (0-0.5); Lymphocytes Absolute Auto 3.91 K/mm3 (0.9-3.2); Lymphocytes Percent Auto 42.6 % (18.3-44.2); Mean Corpuscular HGB Conc 31.7 g/dl (32-36); Mean Corpuscular Hemoglobin 28.4 pg (26-34); Mean Corpuscular Volume 89.7 fl (80-100); Mean Platelet Volume 8.9 fl (7.4-10.4); Monocytes Absolute Auto 0.4 K/mm3 (0.1-0.6); Monocytes Percent Auto 3.9 % (2.6-8.5); Neutrophils Absolute Auto 4.7 K/mm3 (1.3-6.7); Neutrophils Percent Auto 51.2 % (45.5-73.1); Platelet Count Result 343 k/mm3 (150-375); Red Blood Count 4.65 M/mm3 (4.2-5.4); Red Cell Distribution Width 13.9 % (11.5-14.5); White Blood Count 9.2 K/mm3 (4.5-10.0)
[2024-09-12 08:37] LABS: Alanine Aminotransferase 33 U/L (6-35); Albumin Level 4.6 g/dL (3.5-5.1); Alkaline Phosphatase 46 U/L (38-126); Anion Gap 10 mmol/L (4-12); Aspartate Amino Transferase 34 U/L (14-36); Bilirubin,Total 0.4 mg/dL (0.2-1.3); Blood Urea Nitrogen 18 mg/dL (7-17); Calcium 9.8 mg/dL (8.4-10.2); Carbon Dioxide 25 mmol/L (22-30); Chloride 103 mmol/L (98-107); Cholesterol 185 mg/dL (0-200); Estimated Glomerular Filt Rate > 60; Glucose 110 mg/dL (65-110); HDL Direct 52 mg/dL; Potassium 4.3 mmol/L (3.4-5.0); Sodium 138 mmol/L (137-145); Triglycerides 101 mg/dL (<150)
[2024-09-12 08:47] LABS: LDL Cholesterol Direct 105 mg/dL
[2024-09-12 08:55] LABS: Hemoglobin A1C 5.6 % (<5.7)
[2024-09-12 09:31] LABS: Erythrocyte Sedimentation Rate 15 mm/hr (0-20)
[2024-09-12 10:06] LABS: Free T4 Free Thyroxine 0.88 ng/dL (0.78-2.19); Vitamin D 25 Hydroxy 55.1 ng/mL
[2024-09-12 23:53] LABS: GGT 18 U/L (3-55)
== END 2024-09-12 08:01 | disposition home or self-care (01) ==
LOC: ANHLAB 08:01
PROVIDERS: PCP Family Medicine; Visit Provider Family Medicine
DX: R79.82 Elevated C-reactive protein (CRP) (principal); K90.0 Celiac disease; K76.0 Fatty (change of) liver, not elsewhere classified; E55.9 Vitamin D deficiency, unspecified; R73.01 Impaired fasting glucose; Z13.220 Encounter for screening for lipoid disorders
CPT/HCPCS: 36415; 80053; 80061; 82306; 82977; 83036; 84439; 84443; 85025; 85652; 86141

== ENCOUNTER 2024-11-21 08:13 | Outpatient (RCR) | payer OTHER, SELFPAY ==
[2024-11-21 09:45] VITALS: BMI 43.4
== END 2025-02-04 14:08 | disposition home or self-care (01) ==
LOC: ANHDMC 08:13
PROVIDERS: Visit Provider Internal Medicine Cardiovascular Disease
DX: E66.01 Morbid (severe) obesity due to excess calories (principal); Z71.3 Dietary counseling and surveillance
CPT/HCPCS: 97802

== ENCOUNTER 2025-02-12 15:55 | Outpatient (CLI) | payer OTHER, SELFPAY ==
--- NOTE | ~2025-02-12 | XR_ITS ---
Clinical Indication: Dyspnea PA and lateral views of the chest: Comparison: 06/28/2023 Findings: The lungs are clear, without evidence of focal consolidation or pleural effusion. Cardiome diastinal silhouette is within normal limits. Bones and soft tissues are unremarkable. Impression: Normal chest. Reviewed, dictated and finalized at location . Impression: Normal chest.
== END 2025-02-12 15:56 | disposition home or self-care (01) ==
LOC: MICIMG 15:56
PROVIDERS: PCP Family Medicine; Visit Provider Physician Assistant Medical
DX: R06.09 Other forms of dyspnea (principal)
CPT/HCPCS: 71046

== ENCOUNTER 2025-03-30 19:47 | Emergency (ER) | payer OTHER, SELFPAY ==
--- NOTE | ~2025-03-30 | XR_ITS ---
EXAM: XR ankle LT min 3V DATE: 03/30/2025 20:28 HISTORY: injury . COMPARISON: 03/16/2024. FINDINGS: Normal mineralization. No fracture or dislocation. No lytic or blastic lesion. Joint space s are maintained. Achilles and plantar enthesopathy No erosion or periosteal change. Ankle soft tissu e swelling. IMPRESSION: No acute osseous finding in the left ankle. Reviewed, dictated and finalized at location K.
--- OUTSIDE RECORDS SUMMARY | 2025-03-30 19:49 | XMS_ITS | Clinical Summary ---
Author Organization [facility] [employer] Address [address] [place] [address] Care Team Providers Care Pens And Pencils Dipper Name Role Phone Unavailable Primary Care Provider Unavailabl e Source Comments [facility] [employer],non-owned Affiliates and Associated Physician Practices is amultiple site organization consisting of ambulatory clinics and hospital sitesin [place], [place], [place] and [place]. This disclosure is being madepursuant to the Care Everywhere program and may not contain all information available regarding this patient. Last updated 18.[employer] Allergies Active Allergy Reactions Criticality Noted Date Comments Clarithromycin 12/13/2016 Metronidazole 12/13/2016 Medications * Be aware that medications may not be up to date on this document. Alwaysverify current medications with the patient. Norethin Colton-Eth Estrad-FE (MINASTRIN 24 FE) 1-20 [...] drink = 0.6 oz pur e alcohol) Comments No Sex and Gender Information Value Date Recorded Sex Assigned at Not on file Legal Sex Female 3:41 PM HOME HEALTH ATTENDANT Gender Identity Not on file Sexual Orientation Not on file Last Filed Vital Signs Vital Sign Reading Time Taken Comments Blood Pressure 138/86 09/05/2018 2:40 PM HOME HEALTH ATTENDANT Pulse 74 09/05/2018 2:40 PM HOME HEALTH ATTENDANT Temperature 37 C (98.6 F) 09/05/2018 2:40 PM HOME HEALTH ATTENDANT Respiratory Rate 16 09/05/2018 2:40 PM HOME HEALTH ATTENDANT Oxygen Saturation 99% 09/05/2018 2:40 PM HOME HEALTH ATTENDANT Inhaled Oxygen Concentration - - Weight 93.9 kg (207 lb) 09/05/2018 2:40 PM HOME HEALTH ATTENDANT Height 162.6 cm (5' 4) 09/05/2018 2:40 PM HOME HEALTH ATTENDANT Body Mass Index 35.53 09/05/2018 2:40 PM HOME HEALTH ATTENDANT Plan of Treatment Health Maintenance Due Date [...] VACCINE (1 - 2023-2 5 season) 2024 DEPRESSION SCREENING 08/15/2024 INFLUENZA VACCINE (#1) 2025 ZOSTER VACCINE (1 of 2) 2026 HIB VACCINE Aged Out No longer eligi ble based on patient's age to complete this topic HPV VACCINE Aged Out No longer eligi ble based on patient's age to complete this topic MENINGOCOCCAL (Group B) VACC INE SHARED DECISION-MAKING Aged Out No longer eligibl e based on patient's age to complete this topic MENINGOCOCCAL GROUPS A/C/Y/W VACCINE Aged Out No longer eligible b ased on patient's age to complete this topic Insurance [facility]
--- OUTSIDE RECORDS SUMMARY | 2025-03-30 19:49 | XMS_ITS | Clinical Summary ---
Author Organization [facility] [place] Address [address] [place] [address] Care Team Providers Care Master Esthetician Name Role Phone Miguel Fleming MD Primary Care Provider [phone] Allergies Active Allergy Reactions Criticality Noted Date [...] Active Immunizations Immunization Administration Dates Next Due ([employer])(12 YR UP) COVID-19 VACCINE - EMERGENCY USE AUTHORIZATION, MRNA, [id number](PF) 30 MCG/0.3 ML IM SUSP 10/24/2020,10/03/2020 Influenza [...] 82 12/28/2020 9:00 PM CDT Temperature 36.8 C (98.3 F) 12/28/2020 4:55 PM CDT Respiratory Rate 17 12/28/2020 9:00 PM CDT Oxygen Saturation 97% 12/28/2020 9:00 PM CDT Inhaled Oxygen Concentration - - Weight 110.2 kg (243 lb) 12/28/2020 4:55 PM CDT Height 162.6 cm (5' 4) 12/28/2020 4:55 PM CDT Body Mass Index 41.71 12/28/2020 4:55 PM CDT Plan of Treatment Health Maintenance Due Date Last Done Comments DIABETES ANNUAL FOOT EXAM 1994 DIABETES ANNUAL RETINAL EXAM 1994 DIABETES MICROALBUMIN ANNUAL SCREEN 1994 LDL CHOLESTEROL ANNUAL 1994 DTAP/TDAP/TD VACCINES (1 - Tdap) 1995 HEPATITIS B VACCINES (1 of 3 - 19+ 3-dose series) 1995 HPV/Cotest (21-29) 1997 HPV/Cotest (30-65) 2006 DIABETES HBA1C Q 6 MONTHS 02/28/2016 08/30/2015 BREAST CANCER SCREENING 2016 COLORECTAL SCREENING 2021 Colorectal Cancer Screening 2021 FIT-DNA Q 3 years 2021 FIT/FOBT Q 1 year 2021 Flex Sig/CT Colonography Q 5 years 2021 CERVICAL CANCER SCREENING 09/30/2023 PAP SMEAR 09/30/2023 09/30/2020, 07/18/2017 COVID-19 Vaccine ( season) 04/15/202407/2021, 10/03/2020 INFLUENZA VACCINE (#1) 2025 05/16/2020 Insurance RX [facility] [employer] [facility] INDIVIDUAL EXCHANGE [id number] Care Teams Master Esthetician Relationship Specialty Start Date End Date Miguel Fleming MD [address] [place] [address] PCP - General Family Practice 10/03/20
--- OUTSIDE RECORDS SUMMARY | 2025-03-30 19:49 | XMS_ITS | Encounter Summary ---
Author Organization [employer] Address [address] [place] [address] Care Team Providers Care Industrial Aerial Installer Name Role Phone Miguel Fleming MD Primary Care Provider [phone] Encounter Details Date Type Department Care Team (Late st Contact Info) Description 05/16/2020 Lab Requisition [facility] [employer] [facility] [address] [place] [address] [place] [address] [facility] [address] [place] [address] Encounter for pre-employment examination Social History Tobacco [...] Immune - Positive 05/17/2020 12:38 PM CD[address] [facility] [employer] [facility] VARICELLA IGG INDEX 2.43 05/17/2020 12:[address] [facility] Comment: Nonimmune - Negative <0.60 AI Equivocal 0.60 - 0.89 AI Immune - Positive >0.89 AI Blood Collection / Unknown 05/16/2020 10:40 AM CDT 05/16/2020 12:53 PM CDT [facility] - 05/17/2020 12:38 PM CDT A positive result suggests response to immunization or prior exposure to the virus. Harjit Morrissey MD CHEMISTRY ORDERABLES Final R esult [facility] CLIA# [id number] [address] [place] [address] * (ABNORMAL) HEPATITIS B SURFACE AB, QUANT (05/16/2020 10:40 AM CDT) HEPATITIS B SURF AB,QN <4.0 mlU/mL 05/16/2020 6:58 PM CDT [facility] HEPATITIS B SURFACE AB INTERP Non-reacti ve(A) See Interp 05/16/2020 6:58 PM CDT [facility] Blood Collection / Unknown 05/16/2020 10:40 AM CDT 05/16/2020 12:53 PM CDT [facility] - 05/16/2020 6:58 PM CDT Patient does not have immunity to Hepatitis B virus. This assay is used to determine immune status to Hepatitis B as greater than or equal to 10 mIU/mL as per CDC guidelines (MMWR:vol 55: RR-16, 2006). Harjit Morrissey MD CHEMISTRY ORDERABLES Final R esult [facility] CLIA# [id number] [address] [place] [address] documented in this encounter Visit Diagnoses Diagnosis Encounter for pre-employment examination Health examination of defined subpopulation documented in this encounter Care Teams Industrial Aerial Installer Relationship Specialty Start Date End Date Miguel Fleming MD [address] [place] [address] PCP - General Family Practice 10/03/20 documented as of this encounter
--- OUTSIDE RECORDS SUMMARY | 2025-03-30 19:49 | XMS_ITS | Clinical Summary ---
Author Organization [facility] Address [address] [place] [address] Care Team Providers Care Hand Hide Stretcher Name Role Phone Unavailable Primary Care Provider [...] Comments Blood Pressure 131/89 06/29/2013 7:33 AM SUPERVISOR FILTRATION Pulse 100 06/29/2013 7:33 AM SUPERVISOR FILTRATION Temperature - - Respiratory Rate - - Oxygen Saturation - - Inhaled Oxygen Concentration - - Weight 94.8 kg (209 lb) 06/29/2013 7:33 AM SUPERVISOR FILTRATION Height 162.6 cm (5' 4) 06/29/2013 7:33 AM SUPERVISOR FILTRATION Body Mass Index 35.87 06/29/2013 7:33 AM SUPERVISOR FILTRATION Plan of Treatment Health Maintenance Due Date [...] 2016 COVID-19 Vaccine (2023-2 5 season) 2024 Meningococcal B Vaccine Aged Out No l onger eligible based on patient's age to complete this topic Meningococcal Vaccine Aged Out No kylee manolo eligible based on patient's age to complete this topic Pneumococcal Vaccine: Pediat rics (0 to 5 Years) and At-Risk Patients (6 to 49 Years) Aged Out No longer eligible b ased on patient's age to complete this topic RSV Immunizations Under 20 Months Aged Out No longer eligible based on patient's age to complete this topic
[2025-03-30 19:52] VITALS: BP 151/97; PULSE 106; RESP 20; TEMP 36.5; O2SAT 100
--- NOTE | 2025-03-30 21:35 | ED.LOWEXIN ---
HPI - Extremity Injury (Lower) General Chief Complaint: Extremity Injury, Lower Stated Complaint: Ankle pain Time Seen by Provider: 03/30/25 20:58 History of Present Illness HPI Narrative: 49-year-old female with a history of deltoid ligament tear in her left ankle requiring physical therapy. Patient is ambulatory at baseline was walking with her dog today when she tripped and fell down. She scraped her left knee and rolled her ankle. States that she is able to tolerate weight-bearing but to a lesser degree than normal. Some swelling to the lateral aspect of the left ankle. No other injuries. She was otherwise in her normal state of health. Tetanus is up-to-date. No recent surgeries or illnesses. Related Data Home Medications ?Medication ?Instructions ?Recorded ?Confirmed ?Last Taken ?Type drospirenone (contraceptive) 4 mg 1 tablet PO DAILY 05/31/23 02/11/25 05/31/23 16:00 History (28) tablet (Slynd) multivitamin 1 tablet PO DAILY 10/06/23 02/11/25 Unknown History cetirizine 10 mg capsule (Zyrtec) 10 mg PO DAILY PRN 10/22/24 02/11/25 Unknown History Allergies Allergy/AdvReac Type Severity Reaction Status Date / Time bupropion (From Wellbutrin) Allergy Intermediate Confusion Verified 03/30/25 19:48 Corticosteroids Allergy Unknown HIVES Verified 03/30/25 19:48 (Glucocorticoids) metronidazole (From Flagyl) Allergy Swelling Verified 03/30/25 19:48 of Lip/Tongue/Throat tirzepatide (From Mounjaro) AdvReac Severe Vomiting Verified 03/30/25 19:48 Review of Systems Review of Systems: As reviewed above in HPI [facility] Past Medical History Medical History Trochanteric bursitis of right hip Bilateral thumb pain Axillary pain Strain of right trapezius muscle Rhomboid muscle strain Costochondritis, acute Acute appendicitis Eustachian tube dysfunction Symptomatic PVCs Complicated grieving Local reaction to COVID-19 vaccine Morbid obesity with BMI of 40.0-44.9, adult Right knee pain Ankle sprain Adult celiac disease Celiac disease Serous otitis media Trigger thumb Leg pain, left Morbid obesity COVID-19 Dyspnea BMI greater than 40 Bowel disease Cholecystectomy planned Laparoscopic: 08/01/16 PCOS (polycystic ovarian syndrome) Ulnocarpal impaction syndrome Interstitial cystitis Anxiety Allergies Migraine Asthma Surgical History Surgical History History of laparoscopic appendectomy History of cholecystectomy Family History Family History Father Hypertension Heart disease Rheumatoid arthritis COPD (chronic obstructive pulmonary disease) Sibling Hypertension Mother Hypertension Heart disease Glioblastoma Other Cerebrovascular accident Diabetes mellitus Family history of allergic disorder Family history of type 2 diabetes mellitus Social History Social History Smoking status: Former smoker Tobacco type: cigarettes Second hand tobacco smoke exposure: No Alcohol intake: current Drinks per week: 3 Alcohol use details: Pt drinks socially. 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 Mucous membranes moist. NECK: Supple. EXTREMITIES: Normal range of motion. Mild swelling to left ankle, tenderness along the lateral deltoid ligament left ankle. No step-offs or deformities. Full range of motion of the ankle. Able to bear weight although painful. No tenderness on the posterior ridge of the ankle. SKIN: Superficial abrasions to the left knee, left ankle mild swelling NEURO: [No focal deficits]. Alert and oriented [x3.] PSYCH: [Normal mood and affect.] Course Vital Signs Vital signs: Vital Signs Temperature 36.5 C 03/30/25 19:52 Pulse Rate 106 H 03/30/25 19:52 Respiratory Rate 20 03/30/25 19:52 Blood Pressure 151/97 H 03/30/25 19:52 Pulse Oximetry 100 03/30/25 19:52 Oxygen Delivery Room Air 03/30/25 19:52 Temperature 36.5 C 03/30/25 19:52 Pulse Rate 106 H 03/30/25 19:52 Respiratory Rate 20 03/30/25 19:52 Blood Pressure 151/97 H 03/30/25 19:52 Pulse Oximetry 100 03/30/25 19:52 Oxygen Delivery Room Air 03/30/25 19:52 MDM - Extremity Injury (Lower) MDM Narrative Medical decision making narrative: 49-year-old female with a history of deltoid ligament tear in her left ankle requiring physical therapy. Patient is ambulatory at baseline was walking with her dog today when she tripped and fell down. She scraped her left knee and rolled her ankle. States that she is able to tolerate weight-bearing but to a lesser degree than normal. Some swelling to the lateral aspect of the left ankle. No other injuries. She was otherwise in her normal state of health. Tetanus is up-to-date. No recent surgeries or illnesses. Normal range of motion. Mild swelling to left ankle, tenderness along the lateral deltoid ligament left ankle. No step-offs or deformities. Full range of motion of the ankle. Able to bear weight although painful. No tenderness on the posterior ridge of the ankle. Patient's wounds were cleaned up, no lacerations appreciated, skin glue used to seal the abrasions from bleeding and hemostasis achieved. Ankle x-ray obtained shows no acute osseous abnormalities. Colton wrap applied and given crutches for comfort. Patient is safe for discharge with regular orthopedics follow-up. She has pain medications at home and we gave her regimen to follow. Patient is safe for discharge at this time. Medical Records Attestation: I reviewed the patient's medical records. Imaging Data Attestation: I personally reviewed and interpreted this imaging study as follows: My impression: Impressions Ankle X-Ray 03/30/25 20:31 IMPRESSION: No acute osseous finding in the left ankle. Discharge Plan Discharge Clinical Impression: Ankle sprain Patient Disposition: Home Condition: Stable Instructions: Antibiotic Form, Ankle Sprain (DC) Additional Instructions: 800 mg ibuprofen every 8 hours for pain and swelling, Colton wrap for comfort, crutches for ambulation assistance. Bear weight as tolerating and follow-up with ortho Patient Language: Yemeni Prescriptions: No Action multivitamin Tablet 1 tablet PO DAILY Zyrtec 10 mg capsule 10 mg PO DAILY PRN albuterol sulfate 90 mcg/actuation HFA aerosol inhaler 2 inh inhalation Q4H PRN (Reason: shortness of breath or wheezing) Qty: 6.7 3RF Slynd 4 mg (28) Tablet 1 tablet PO DAILY clobetasol 0.05 % solution 1 applic topical BID PRN (Reason: dermatitis) Qty: 50 1RF escitalopram oxalate 20 mg tablet See Rx Instructions .ROUTE .COMPLEX Qty: 90 2RF Dose Instruction: TAKE 1 TABLET BY MOUTH EVERY DAY Rx Instructions: TAKE 1 TABLET BY MOUTH EVERY DAY omeprazole 40 mg capsule,delayed release(DR/EC) 40 mg PO DAILY Qty: 90 0RF Follow-up/Referrals: Miguel Fleming MD [Primary Care Provider] - Time of Disposition: 21:15
--- OUTSIDE RECORDS SUMMARY | 2025-03-30 21:37 | XMS_ITS | Clinical Summary ---
Author Organization [facility] Address [address] [place] [address] Care Team Providers Care Rod Placer Name Role Phone Miguel Fleming MD Primary Care Provider [phone] Allergies Active Allergy Reactions Criticality Noted Date [...] Active Immunizations Immunization Administration Dates Next Due ([employer])(12 YR UP) COVID-19 VACCINE - EMERGENCY USE AUTHORIZATION, MRNA, [id number](PF) 30 MCG/0.3 ML IM SUSP 10/24/2020,10/03/2020 Influenza [...] (#1) 2025 05/16/2020 Insurance RX [facility] [employer] INDIVIDUAL EXCHANGE [id number] Care Teams Rod Placer Relationship Specialty Start Date End Date Miguel Fleming MD [address] [place] [address] PCP - General Family Practice 10/03/20
--- OUTSIDE RECORDS SUMMARY | 2025-03-30 21:37 | XMS_ITS | Encounter Summary ---
Author Organization [employer] Address [address] [place] [address] Care Team Providers Care Special Procedures Tech Name Role Phone Miguel Fleming MD Primary Care Provider [phone] Encounter Details Date Type Department Care Team (Late st Contact Info) Description 05/16/2020 Lab Requisition [facility] [employer] [facility] [address] [place] [address] [place] [address] [facility] [address] [place] [address] Encounter for pre-employment examination Social History Tobacco [...] Positive 05/17/2020 12:38 PM CDT [facility] [employer] SERVICES [facility] VARICELLA IGG INDEX 2.43 05/17/2020 12:38 PM CDT [facility] Comment: Nonimmune - Negative <0.60 AI Equivocal 0.60 - 0.89 AI Immune - Positive >0.89 AI Blood Collection / Unknown 05/16/2020 10:40 AM CDT 05/16/2020 12:53 PM CDT [facility] - 05/17/2020 12:38 PM CDT A positive result suggests response to immunization or prior exposure to the virus. Harjit Morrissey MD CHEMISTRY ORDERABLES Final R esult [facility] CLIA# [id number] [address] [place] [address] * (ABNORMAL) HEPATITIS B SURFACE AB, QUANT (05/16/2020 10:40 AM CDT) HEPATITIS B SURF AB,QN <4.0 mlU/mL 05/16/2020 6:58 PM CDT [facility] HEPATITIS B SURFACE AB INTERP Non-reacti ve(A) See Interp 05/16/2020 6:58 PM CDT [facility] Blood Collection / Unknown 05/16/2020 10:40 AM CDT 05/16/2020 12:53 PM CDT [facility] - 05/16/2020 6:58 PM CDT Patient does not have immunity to Hepatitis B virus. This assay is used to determine immune status to Hepatitis B as greater than or equal to 10 mIU/mL as per CDC guidelines (MMWR:vol 55: RR-16, 2006). Harjit Morrissey MD CHEMISTRY ORDERABLES Final R esult [facility] CLIA# [id number] [address] [place] [address] documented in this encounter Visit Diagnoses Diagnosis Encounter for pre-employment examination Health examination of defined subpopulation documented in this encounter Care Teams Special Procedures Tech Relationship Specialty Start Date End Date Miguel Fleming MD [address] [place] [address] PCP - General Family Practice 10/03/20 documented as of this encounter
--- OUTSIDE RECORDS SUMMARY | 2025-03-30 21:37 | XMS_ITS | Clinical Summary ---
Author Organization [facility] Address [address] [place] [address] Care Team Providers Care Waistline Joiner Name Role Phone Unavailable Primary Care Provider [...] Comments Blood Pressure 131/89 06/29/2013 7:33 AM SAND BUFFER Pulse 100 06/29/2013 7:33 AM SAND BUFFER Temperature - - Respiratory Rate - - Oxygen Saturation - - Inhaled Oxygen Concentration - - Weight 94.8 kg (209 lb) 06/29/2013 7:33 AM SAND BUFFER Height 162.6 cm (5' 4) 06/29/2013 7:33 AM SAND BUFFER Body Mass Index 35.87 06/29/2013 7:33 AM SAND BUFFER Plan of Treatment Health Maintenance Due Date [...]
--- OUTSIDE RECORDS SUMMARY | 2025-03-30 21:37 | XMS_ITS | Clinical Summary ---
Author Organization [facility] Address [address] [facility] [place] [address] Care Team Providers Care Banquet Waiter/Waitress Name Role Phone Unavailable Primary Care Provider Unavailabl e Source Comments [facility],non-owned Affiliates and Associated Physician Practices is amultiple site organization consisting of ambulatory clinics and hospital sitesin [place], [place], [place] and [place]. This disclosure is being madepursuant to the Care Everywhere program and may not contain all information available regarding this patient. Last updated 18.[employer] Allergies Active Allergy Reactions Criticality Noted Date [...] on file Legal Sex Female 3:41 PM CORPORATE ACCOUNTING MANAGER Gender Identity Not on file Sexual Orientation Not on file Last Filed Vital Signs Vital Sign Reading Time Taken Comments Blood Pressure 138/86 09/05/2018 2:40 PM CORPORATE ACCOUNTING MANAGER Pulse 74 09/05/2018 2:40 PM CORPORATE ACCOUNTING MANAGER Temperature 37 C (98.6 F) 09/05/2018 2:40 PM CORPORATE ACCOUNTING MANAGER Respiratory Rate 16 09/05/2018 2:40 PM CORPORATE ACCOUNTING MANAGER Oxygen Saturation 99% 09/05/2018 2:40 PM CORPORATE ACCOUNTING MANAGER Inhaled Oxygen Concentration - - Weight 93.9 kg (207 lb) 09/05/2018 2:40 PM CORPORATE ACCOUNTING MANAGER Height 162.6 cm (5' 4) 09/05/2018 2:40 PM CORPORATE ACCOUNTING MANAGER Body Mass Index 35.53 09/05/2018 2:40 PM CORPORATE ACCOUNTING MANAGER Plan of Treatment Health Maintenance Due Date [...] patient's age to complete this topic Insurance [facility]
== END 2025-03-30 21:36 | disposition home or self-care (01) ==
PROVIDERS: Emergency Provider Student in an Organized Health Care Education/Training Program; PCP Family Medicine
DX: S93.402A Sprain of unspecified ligament of left ankle, initial encounter (principal); J45.909 Unspecified asthma, uncomplicated; K90.0 Celiac disease; E66.01 Morbid (severe) obesity due to excess calories; Z68.41 Body mass index [BMI] 40.0-44.9, adult; E28.2 Polycystic ovarian syndrome; N30.10 Interstitial cystitis (chronic) without hematuria; F41.9 Anxiety disorder, unspecified; Z86.16 Personal history of COVID-19; Z87.891 Personal history of nicotine dependence; Z90.49 Acquired absence of other specified parts of digestive tract; W01.0XXA Fall on same level from slipping, tripping and stumbling without subsequent striking against object, initial encounter; Y93.K1 Activity, walking an animal
CPT/HCPCS: 73610; 99283

== ENCOUNTER 2025-06-20 07:53 | Outpatient (CLI) | payer OTHER, SELFPAY ==
[2025-06-20 08:56] LABS: Hematocrit 40.7 % (37.0-47.0); Hemoglobin 12.8 g/dL (12.0-15.0); Immature Granulocyte Percent A 0.4 % (0-0.5); Lymphocytes Absolute Auto 3.32 K/mm3 (0.9-3.2); Mean Corpuscular HGB Conc 31.4 g/dl (32-36); Mean Corpuscular Hemoglobin 27.8 pg (26-34); Mean Corpuscular Volume 88.3 fl (80-100); Nucleated Red Blood Cells Absolute Auto 0.000 K/mm3 (0.0-0.012); Nucleated Red Blood Cells Perc 0.0 % (0.0-0.2); Platelet Count Result 360 k/mm3 (150-375); Red Blood Count 4.61 M/mm3 (4.2-5.4); White Blood Count 9.5 K/mm3 (4.5-10.0)
[2025-06-20 09:19] LABS: Alanine Aminotransferase 34 U/L (6-35); Albumin Level 4.5 g/dL (3.5-5.1); Alkaline Phosphatase 40 U/L (38-126); Anion Gap 7 mmol/L (4-12); Aspartate Amino Transferase 39 U/L (14-36); Bilirubin,Total 0.7 mg/dL (0.2-1.3); Blood Urea Nitrogen 14 mg/dL (7-17); Calcium 9.4 mg/dL (8.4-10.2); Carbon Dioxide 27 mmol/L (22-30); Chloride 104 mmol/L (98-107); Cholesterol 203 mg/dL (0-200); Estimated Glomerular Filt Rate > 60; Glucose 101 mg/dL (65-110); HDL Direct 48 mg/dL; Potassium 4.1 mmol/L (3.4-5.0); Sodium 138 mmol/L (137-145); Total Protein 7.9 g/dL (6.3-8.2); Triglycerides 112 mg/dL (<150)
[2025-06-20 10:15] LABS: Hemoglobin A1C 5.8 % (<5.7)
--- OUTSIDE RECORDS SUMMARY | 2025-06-20 16:48 | XMS_ITS | Clinical Summary ---
Author Organization [employer] [facility] Address [address] [place] [address] Care Team Providers Care Scientific Director Name Role Phone Miguel Fleming MD Primary Care Provider [phone] Allergies Active Allergy Reactions Criticality Noted Date [...] Active Immunizations Immunization Administration Dates Next Due ([employer])(12 YR UP) COVID-19 VACCINE - EMERGENCY USE AUTHORIZATION, MRNA, [id number](PF) 30 MCG/0.3 ML IM SUSP 10/24/2020,10/03/2020 Influenza [...] SCREENING 09/30/2023 PAP SMEAR 09/30/2023 09/30/2020, 07/18/2017 INFLUENZA VACCINE (#1) 2025 05/16/2020 COVID-19 Vaccine ( season) 04/15/202507/2021, 10/03/2020 Insurance RX [facility] [employer] [facility] INDIVIDUAL EXCHANGE [id number] Care Teams Scientific Director Relationship Specialty Start Date End Date Miguel Fleming MD [address] [place] [address] PCP - General Family Practice 10/03/20
--- OUTSIDE RECORDS SUMMARY | 2025-06-20 16:48 | XMS_ITS | Clinical Summary ---
Author Organization [facility] [employer] Address [address] [place] [address] Care Team Providers Care Cable Engineer Outside Plant Name Role Phone Unavailable Primary Care Provider Unavailabl e Source Comments [facility] [employer],non-owned Affiliates and Associated Physician Practices is amultiple site organization consisting of ambulatory clinics and hospital sitesin [place], [place], [place] and [place]. This disclosure is being madepursuant to the Care Everywhere program and may not contain all information available regarding this patient. Last updated 18.[facility] [employer] Allergies Active Allergy Reactions Criticality Noted Date [...] on file Legal Sex Female 3:41 PM MOLD DUMPER Gender Identity Not on file Sexual Orientation Not on file Last Filed Vital Signs Vital Sign Reading Time Taken Comments Blood Pressure 138/86 09/05/2018 2:40 PM MOLD DUMPER Pulse 74 09/05/2018 2:40 PM MOLD DUMPER Temperature 37 C (98.6 F) 09/05/2018 2:40 PM MOLD DUMPER Respiratory Rate 16 09/05/2018 2:40 PM MOLD DUMPER Oxygen Saturation 99% 09/05/2018 2:40 PM MOLD DUMPER Inhaled Oxygen Concentration - - Weight 93.9 kg (207 lb) 09/05/2018 2:40 PM MOLD DUMPER Height 162.6 cm (5' 4) 09/05/2018 2:40 PM MOLD DUMPER Body Mass Index 35.53 09/05/2018 2:40 PM MOLD DUMPER Plan of Treatment Health Maintenance Due Date [...] of 3 - 19+ 3-dose series) 1995 PAP with HPV 2006 SCREENING FOR DIABETES 09/05/2018 DEPRESSION SCREENING 08/15/2024 COVID-19 VACCINE (1 - 2023-2 5 season) 2025 INFLUENZA VACCINE (#1) 2025 ZOSTER VACCINE (1 [...] patient's age to complete this topic Insurance [facility]
--- OUTSIDE RECORDS SUMMARY | 2025-06-20 16:48 | XMS_ITS | Clinical Summary ---
Author Organization [facility] Address [address] [place] [address] Care Team Providers Care Serology Technician Name Role Phone Unavailable Primary Care Provider [...] Comments Blood Pressure 131/89 06/29/2013 7:33 AM JUNIOR ENGINEER Pulse 100 06/29/2013 7:33 AM JUNIOR ENGINEER Temperature - - Respiratory Rate - - Oxygen Saturation - - Inhaled Oxygen Concentration - - Weight 94.8 kg (209 lb) 06/29/2013 7:33 AM JUNIOR ENGINEER Height 162.6 cm (5' 4) 06/29/2013 7:33 AM JUNIOR ENGINEER Body Mass Index 35.87 06/29/2013 7:33 AM JUNIOR ENGINEER Plan of Treatment Health Maintenance Due Date [...] HPV 2006 Mammogram Screening 2016 COVID-19 Vaccine (2024-2 6 season) 2025 Influenza Adult (#1) 2025 Hepatitis A Vaccines Aged Out No long er eligible based on patient's age to complete this topic Meningococcal B Vaccine Aged Out No l [...]
--- OUTSIDE RECORDS SUMMARY | 2025-06-20 16:49 | XMS_ITS | Data Portability ---
Author Organization [facility] [place] Address [address] [place] [address] Assessment No assessment recorded. Plan of Treatment Reminders Order Date Submit Date Provider Last Modified By Organization Details Last Modified Time Details Appointments None recorded. Lab T4, free, serum 2021 [facility] (Lab), [address], [place], [address], 19:59:25 free T3, quantitativ e, dialysis serum or plasma 2021 [facility] (Lab), [address], [place], [address], 19:59:24 cortisol, saliva 2021 dereje [facility] (Lab), [address] [place], [address], 15:54:09 T3, reverse, serum 2021 [facility] (Lab), [address] [place], [address], 19:59:26 dhea-sulfat e, serum 2021 [facility] (Lab), [address], [place], [address], 19:59:22 estradiol, serum 2021 022 [facility] (Lab), [address], [place], [address], 19:59:22 FSH (follicle-s timulating hormone), serum 2021 [facility] (Lab), [address], [place], [address], 19:59:24 HbA1c (hemoglobin A1c), blood 2021 [facility] (Lab), [address], [place], [address], 19:59:25 lh (luteinizin g hormone), serum 2021 [facility] (Lab), [address], [place], [address], 19:59:23 progesteron e, serum 2021 022 [facility] (Lab), [address], [place], [address], 19:59:23 prolactin, serum 2021 [facility] (Lab), [address] [place], [address], 19:59:23 shbg (sex hormone-bin ding globulin), serum 2021 022 [facility] (Lab), [address] [place], [address], 2 19:59:25 TSH, serum or plasma 2021 [facility] (Lab), [address] [place], [address], 19:59:24 testosteron e free/testos terone total, ratio, serum 2021 022 JOSELIN [facility] (Lab), [address] [place], [address], 19:59:26 Referral None recorded. Procedures None recorded. [...] 9-246 > 75 12-15 4 Not Available [facility] (Lab) [address], [place], [address], 10/11/2021 19:59:22 10/06/19 22 10/06/2021 ESTRA DIOL [...] 561-2 1280 pg/mL 3rd Trime ster8 525-> 00970 pg/mL Not Available [facility] (Lab) [address], [place], [address], 10/11/2021 19:59:22 10/06/19 22 10/06/2021 PROGE STERO NE progesterone 0.12 NG/mL This assay was perfo rmed using [employer] ratio n reage nts and test kits. Value s obtai leyla with other assay metho ds or kits canno t be used inter [facility] . Femal e Proge stero ne Range s: Folli cular phase 0.06- 0.89 ng/mL Ovula tion phase 0.12- 12.00 ng/mL Lutea l phase 1.83- 23.90 ng/mL Postm enopa usal< 0.05- 0.13 ng/mL Healt hy Pregn ant Women 1st Trime ster1 1.0-4 4.30 2nd Trime ster2 5.40- 83.30 3rd Trime ster5 8.70- 214.0 0 Not Available [facility] (Lab) [address] [place], [address], 10/11/2021 19:59:22 10/06/19 22 10/06/2021 PROLA CTIN prolactin, total 16.30 NG/mL 4.79-2 3.30 This assay was perfo rmed using [employer] ratio n reage nts and test kits. Value s obtai leyla with other assay metho ds or kits canno t be used inter [facility] . Not Available [facility] (Lab) [address] [facility], [place], [address], 10/11/2021 19:59:23 10/06/19 22 10/06/2021 LH (LUTE NIZIN G HORMO NE) LH 3.7 mIU/m L This assay was perfo rmed using [employer] ratio n reage nts and test kits. Value s obtai leyla with other assay metho ds or kits canno t be used inter [facility] . Femal es Mid-F ollic ular: 2.4-1 2.6 mIU/m L Mid-C ycle: 14.0- 95.6 mIU/m L Mid-L uteal : 1.0-1 1.4 mIU/m L Postm enopa use: 7.7-5 8.5 mIU/m L Not Available [facility] (Lab) [address] [facility], [place], [address], 10/11/2021 19:59:23 10/06/19 22 10/06/2021 FSH FSH [...] use: 25.8- 134.8 mIU/m L Not Available [facility] (Lab) [address] [facility], [place], [address], 10/11/2021 19:59:24 10/06/19 22 10/06/2021 TSH, REFLE X FREE T4 TSH 3.35 uIU/m L 0.30-5 .33 Not Available [facility] (Lab) [address] [facility], [place], [address], 10/11/2021 19:59:24 10/06/19 22 10/06/2021 FREE T3 T3, free 4.9 pg/mL 2.5-3. 9 high Not Available [facility] (Lab) [address] [place], [address], 10/11/2021 19:59:24 10/06/19 22 10/06/2021 HUMAN SEX HORMO NE ALEXANDREA NG GLOBU LAW sex hormone binding globulin 31.4 nmole s/L 18.2-1 35.5 Not Available [facility] (Lab) [address] [facility], [place], [address], 10/11/2021 19:59:25 10/06/19 22 10/06/2021 T4 FREE T4, free 0.62 NG/dL 0.60-1 .40 Not Available [facility] (Lab) [address], [place], [address], 10/11/2021 19:59:25 10/06/19 22 10/06/2021 HEMOG LOBIN [...] >8.0% Actio n sugge sted Not Available [facility] (Lab) [address], [place], [address], 10/11/2021 19:59:25 10/06/19 22 10/06/2021 TESTO STERO NE, FREE( DIALY SIS) AND TOTAL (LC/M S/MS) testosterone , total 7 NG/dL 2-45 For addit ional infor jayshree buckner e refer to http: //demar alvares.que stdia gnost ics.c om/fa q/Tot alTes toste Radha [facility] (This link is being provi ded for infor guido christensen/ educa rainer l purpo ses only. ) This test was nik lisa and its cam tical perfo rmanc e narendra cteri stics have been deter mined by [facility]. It has not been clear ed or appro lisa by the FDA. This assay has been valid ated pursu ant to the CLIA regul ation s and is used for clini charley purpo ses. Not Available [facility] (Lab) [address], [place], [address], 10/11/2021 19:59:26 10/06/19 22 10/06/2021 TESTO STERO [...] purpo ses. Perfo rming Organ izati on Infor [facility] n: Site ID: [id number] Name: [facility] Jerri [facility] Addre ss: [id number] [place] [address] Direc tor: Jimmy amador M.D. Not Available [facility] (Lab) [address] [place], [address], 10/11/2021 19:59:26 10/06/19 22 10/06/2021 T3 REVER SE, LC/MS /MS T3, reverse 9 NG/dL 8-25 This test was devel oped and its cam tical perfo rmanc e narendra cteri stics have been deter mined by [facility] Leo kerre [place] [facility] . It has not been clear ed or appro lisa by FDA. This assay has been valid ated pursu ant to the CLIA regul ation s and is used for clini charley purpo ses. Perfo rming Organ izati on [facility] n: Site ID: [id number] Name: [facility] [place] [place] , Addre ss: [id number] [place] [address] Direc tor: Tamika bashir MD,Ph D,KEITH Not Available [facility] (Lab) [address] [place], [address], 10/11/2021 19:59:26 Result Notes None recorded. Problems Name Problem SNOMED Code Status Onset Date Resolution Date Notes Provider Name and Address Organization Details Recorded Time Gynecologic examination Active 2021 Dalton Lucia MD [address], [place], [address], [facility] 2 19:53:05 Non-alcoholi c fatty liver 489800814 Active 2021 Dalton Lucia MD [address], [place], [address], [facility] 2 19:53:09 Cardiac arrhythmia 599025321 Active 2021 Dalton Lucia MD [address], [place], [address], [facility] 2 19:53:11 Essential hypertension 35424919 Active 2021 Dalton Lucia MD [address], [place], [address], [facility] 2 19:53:36 Asthma 696349296 Active 2021 Dalton Lucia MD [address], [place], [address], [facility] 2 19:53:38 Deep venous thrombosis 974319916 Active 2021 Dalton Lucia MD [address], [place], [address], [facility] 2 19:53:40 Problem Notes None recorded. Medical Equipment None Reported. Allergies Allergen ID Allergen Name Allergen Category Reaction Reaction Severity Criticality Documentation Date Start Date Code Code System Note Provider Name and Address Organization Details Recorded Time 11332 Flagyl medicatio n Not available Not available Not available 10/06/2021 6 RxNorm Isabella Sher [facility] 2 16:14:36 Medications Name Sig Start [...] Body mass index (BMI) Body weight Systolic And Diastolic Systolic And Diastolic Provider Name and Address Organization Details Last Updated DateTime 10/06/2021 160.02 cm 45.2 kg/m2 342825.0 5 g 147/91 mm[Hg] 140/84 mm[Hg] Isabella Sher [facility] 2 17:25:03 Social History None recorded. Functional Status None recorded. Mental Status None recorded. Family History Nothing Reported. Medical History No medical history recorded. Gynecological HistoryNo gynecological history recorded. Obstetrics History GPAL:G 0 P 0 0 0 0 Past Encounters Encounter ID Performer Location Encounter Start Date Encounter Closed Date Diagnosis/Indication Diagnosis SNOMED-CT Code Diagnosis ICD10 Code Diagnosis IMO Codes Diagnosis Note [id number] Dalton Lucia MD [place] [address] [address] 10/06/2021 15:44:41 10/08/2021 13:53:08 Gynecologic examination 97512587 Z01.419 Obesity 553686602 E66.9 This patient is a 46-year-ol d [...] in 2 weeks. Non-alcoho lic fatty liver 249592610 K76.0 Cardiac arrhythmia 33883 7007 I49.9 Essential hypertension 68157401 I10 Asthma 212743139 J45.90 9 Deep venou s thrombosis 790298182 I82.409 Health Concerns Section Related Observation LastModified by Organization Detina ls LastModified Time None Recorded Concern Status LastModified by Organization Details LastModified Time None Recorded Advance Directives Directive None Recorded Payers Insurance Date Sequence Insurance Name Policy Number Policy Navarro Covered Member ID Navarro Member ID Guarantor Name 11/07/2021 1 KENISHA (POS II) [id number] Herbert Valentine [id number] Jamee Gold Serge Notes Date Note [...] anger. She likes she can tenderness and Kuwaiti fries, pizza send Blizzard. She has she [...] ideation. Dalton Lucia MD [address], [place], [address], [facility] 10/07/2021 19:54:02 OBGyn Episode No OBEpisode recorded.
--- OUTSIDE RECORDS SUMMARY | 2025-06-20 16:49 | XMS_ITS | Encounter Summary ---
Author Organization [employer] Address [address] [place] [address] Care Team Providers Care Lap Hand Tool Name Role Phone Miguel Fleming MD Primary Care Provider Encounter Details Date Type Department Care Team (Late st Contact Info) Description 05/16/2020 Lab Requisition [facility] [employer] [facility] [address] [place] [address] [place] [address] [facility] [address] [place] [address] Encounter for pre-employment examination Social History Tobacco [...] Immune - Positive 05/17/2020 12:38 PM CDT [facility] [employer] [facility] IGG INDEX 2.43 05/17/2020 12:38 PM CDT [facility] Comment: Nonimmune - Negative <0.60 AI Equivocal 0.60 - 0.89 AI Immune - Positive >0.89 AI Blood Collection / Unknown 05/16/2020 10:40 AM CDT 05/16/2020 12:53 PM CDT [facility] - 05/17/2020 12:38 PM CDT A positive result suggests response to immunization or prior exposure to the virus. Harjit Morrissey MD CHEMISTRY ORDERABLES Final R esult [facility] CLIA# [id number] [place] [address] * (ABNORMAL) HEPATITIS B SURFACE AB, QUANT (05/16/2020 10:40 AM CDT) HEPATITIS B SURF AB,QN <4.0 mlU/mL 05/16/2020 6:58 PM CDT [facility] HEPATITIS B SURFACE AB INTERP Non-reacti ve(A) See Interp 05/16/2020 6:58 PM CDT [facility] Blood Collection / Unknown 05/16/2020 10:40 AM CDT 05/16/2020 12:53 PM CDT [facility] - 05/16/2020 6:58 PM CDT Patient does not have immunity to Hepatitis B virus. This assay is used to determine immune status to Hepatitis B as greater than or equal to 10 mIU/mL as per CDC guidelines (MMWR:vol 55: RR-16, 2006). Harjit Morrissey MD CHEMISTRY ORDERABLES Final R esult [facility] CLIA# [id number] [address] [place] [address] documented in this encounter Visit Diagnoses Diagnosis Encounter for pre-employment examination Health examination of defined subpopulation documented in this encounter Care Teams Lap Hand Tool Relationship Specialty Start Date End Date Miguel Fleming MD [address] [place] [address] PCP - General Family Practice 10/03/20 documented as of this encounter
[2025-06-21 07:09] LABS: C-Reactive Protein, Cardiac 27.89 mg/L (0.00-3.00); Triiodothyronine (T3), Free 3.2 pg/mL (2.0-4.4)
== END 2025-06-20 07:54 | disposition home or self-care (01) ==
LOC: ANHLAB 07:55
PROVIDERS: PCP Family Medicine; Referring Provider Family Medicine; Visit Provider Physician Assistant Medical
DX: E78.5 Hyperlipidemia, unspecified (principal); E03.9 Hypothyroidism, unspecified; I10 Essential (primary) hypertension; K90.0 Celiac disease; F41.9 Anxiety disorder, unspecified; R73.01 Impaired fasting glucose; K76.0 Fatty (change of) liver, not elsewhere classified
CPT/HCPCS: 36415; 80053; 80061; 83036; 83520; 84481; 85025; 85652; 86141; 86800; 86850

== ENCOUNTER 2025-06-26 17:57 | Emergency (ER) | payer OTHER, SELFPAY ==
--- OUTSIDE RECORDS SUMMARY | 2025-06-26 18:00 | XMS_ITS | Clinical Summary ---
Author Organization [facility] Address [address] [place] [address] Care Team Providers Care Senior Software Quality Analyst Name Role Phone Unavailable Primary Care Provider [...] Comments Blood Pressure 131/89 06/29/2013 7:33 AM HUMAN RESOURCES MANAGER Pulse 100 06/29/2013 7:33 AM HUMAN RESOURCES MANAGER Temperature - - Respiratory Rate - - Oxygen Saturation - - Inhaled Oxygen Concentration - - Weight 94.8 kg (209 lb) 06/29/2013 7:33 AM HUMAN RESOURCES MANAGER Height 162.6 cm (5' 4) 06/29/2013 7:33 AM HUMAN RESOURCES MANAGER Body Mass Index 35.87 06/29/2013 7:33 AM HUMAN RESOURCES MANAGER Plan of Treatment Health Maintenance Due [...]
--- OUTSIDE RECORDS SUMMARY | 2025-06-26 18:00 | XMS_ITS | Data Portability ---
Author Organization [facility] [place] Address [address] [place] [address] Assessment No assessment recorded. Plan of Treatment Reminders Order Date Submit Date Provider Last Modified By Organization Details Last Modified Time Details Appointments None recorded. Lab T4, free, serum 2021 [facility] (Lab), [address], [place], [address], 19:59:25 free T3, quantitativ e, dialysis serum or plasma 2021 [facility] (Lab), [address], [place], [address], 19:59:24 cortisol, saliva 2021 dereje [facility] (Lab), [address] [place], [address], 15:54:09 T3, reverse, serum 2021 [facility] (Lab), [address] [place], [address], 19:59:26 dhea-sulfat e, serum 2021 [facility] (Lab), [address], [place], [address], 19:59:22 estradiol, serum [address] [facility] (Lab), [address], [place], [address], 19:59:22 FSH (follicle-s timulating hormone), serum 2021 [facility] (Lab), [address], [place], [address], 19:59:24 HbA1c (hemoglobin A1c), blood 2021 [facility] (Lab), [address], [place], [address], 19:59:25 lh (luteinizin g hormone), serum 2021 [facility] (Lab), [address], [place], [address], 19:59:23 progesteron e, serum [address] [facility] (Lab), [address], [place], [address], 19:59:23 prolactin, serum 2021 [facility] (Lab), [address] [place], [address], 19:59:23 shbg (sex hormone-bin ding globulin), serum [address] [facility] (Lab), [address] [place], [address], 2 19:59:25 TSH, serum or plasma 2021 [facility] (Lab), [address] [place], [address], 19:59:24 testosteron e free/testos terone total, ratio, serum 2021 022 JOSELIN [facility] (Lab), [address] [place], [address], 19:59:26 Referral None recorded. Procedures None recorded. [...] 9-246 > 75 12-15 4 Not Available [facility] (Lab) [address], [place], [address], 10/11/2021 19:59:22 10/06/19 22 10/06/2021 ESTRA DIOL [...] 561-2 1280 pg/mL 3rd Trime ster8 525-> 07554 pg/mL Not Available [facility] (Lab) [address], [place], [address], 10/11/2021 19:59:22 10/06/19 22 10/06/2021 PROGE STERO NE progesterone 0.12 NG/mL This assay was perfo rmed using [employer] ratio n reage nts and test kits. Value s obtai leyla with other assay metho ds or kits canno t be used inter [facility] . Femal e Proge stero ne Range s: Folli cular phase 0.06- 0.89 ng/mL Ovula tion phase 0.12- 12.00 ng/mL Lutea l phase 1.83- 23.90 ng/mL Postm enopa usal< 0.05- 0.13 ng/mL Healt hy Pregn ant Women 1st Trime ster1 1.0-4 4.30 2nd Trime ster2 5.40- 83.30 3rd Trime ster5 8.70- 214.0 0 Not Available [facility] (Lab) [address] [place], [address], 10/11/2021 19:59:22 10/06/19 22 10/06/2021 PROLA CTIN prolactin, total 16.30 NG/mL 4.79-2 3.30 This assay was perfo rmed using [employer] ratio n reage nts and test kits. Value s obtai leyla with other assay metho ds or kits canno t be used inter [facility] . Not Available [facility] (Lab) [address] [facility], [place], [address], 10/11/2021 19:59:23 10/06/19 22 10/06/2021 LH (LUTE NIZIN G HORMO NE) LH 3.7 mIU/m L This assay was perfo rmed using [employer] ratio n reage nts and test kits. Value s obtai leyla with other assay metho ds or kits canno t be used inter [facility] . Femal es Mid-F ollic ular: 2.4-1 2.6 mIU/m L Mid-C ycle: 14.0- 95.6 mIU/m L Mid-L uteal : 1.0-1 1.4 mIU/m L Postm enopa use: 7.7-5 8.5 mIU/m L Not Available [facility] (Lab) [address] [facility], [place], [address], 10/11/2021 19:59:23 10/06/19 22 10/06/2021 FSH FSH [...] use: 25.8- 134.8 mIU/m L Not Available [facility] (Lab) [address] [facility], [place], [address], 10/11/2021 19:59:24 10/06/19 22 10/06/2021 TSH, REFLE X FREE T4 TSH 3.35 uIU/m L 0.30-5 .33 Not Available [facility] (Lab) [address] [facility], [place], [address], 10/11/2021 19:59:24 10/06/19 22 10/06/2021 FREE T3 T3, free 4.9 pg/mL 2.5-3. 9 high Not Available [facility] (Lab) [address] [place], [address], 10/11/2021 19:59:24 10/06/19 22 10/06/2021 HUMAN SEX HORMO NE ALEXANDREA NG GLOBU LAW sex hormone binding globulin 31.4 nmole s/L 18.2-1 35.5 Not Available [facility] (Lab) [address] [facility], [place], [address], 10/11/2021 19:59:25 10/06/19 22 10/06/2021 T4 FREE T4, free 0.62 NG/dL 0.60-1 .40 Not Available [facility] (Lab) [address], [place], [address], 10/11/2021 19:59:25 10/06/19 22 10/06/2021 HEMOG LOBIN [...] >8.0% Actio n sugge sted Not Available [facility] (Lab) [address], [place], [address], 10/11/2021 19:59:25 10/06/19 22 10/06/2021 TESTO STERO NE, FREE( DIALY SIS) AND TOTAL (LC/M S/MS) testosterone , total 7 NG/dL 2-45 For addit ional infor jayshree buckner e refer to http: //demar alvares.que stdia gnost ics.c om/fa q/Tot alTes toste Radha [facility] (This link is being provi ded for infor guido christensen/ educa rainer l purpo ses only. ) This test was nik lisa and its cma tical perfo rmanc e narendra cteri stics have been deter mined by [facility]. It has not been clear ed or appro lisa by the FDA. This assay has been valid ated pursu ant to the CLIA regul ation s and is used for clini charley purpo ses. Not Available [facility] (Lab) [address], [place], [address], 10/11/2021 19:59:26 10/06/19 22 10/06/2021 TESTO STERO [...] ses. Perfo rming Organ izati on Infor [facility] [place] n: Site ID: [id number] Name: [facility] Addre ss: [id number] [place] [address] Direc tor: Jimmy amador M.D. Not Available [facility] (Lab) [address] [place], [address], 10/11/2021 19:59:26 10/06/19 22 10/06/2021 T3 REVER SE, LC/MS /MS T3, reverse 9 NG/dL 8-25 This test was devel oped and its cam tical perfo rmanc e narendra cteri stics have been deter mined by [facility] Leo kerre [place] . It has not been clear ed or appro lisa by FDA. This assay has been valid ated pursu ant to the CLIA regul ation s and is used for clini charley purpo ses. Perfo rming Organ izati on [facility] n: Site ID: [id number] Name: [facility] [place] , Addre ss: [id number] [place] [address] Direc tor: Tamika bashir MD,Ph D,KEITH Not Available [facility] (Lab) [address] [place], [address], 10/11/2021 19:59:26 Result Notes None recorded. Problems Name Problem SNOMED Code Status Onset Date Resolution Date Notes Provider Name and Address Organization Details Recorded Time Gynecologic examination Active 2021 Dalton Lucia MD [address], [place], [address], [facility] 2 19:53:05 Non-alcoholi c fatty liver 632458553 Active 2021 Dalton Lucia MD [address], [place], [address], [facility] 2 19:53:09 Cardiac arrhythmia 156372293 Active 2021 Dalton Lucia MD [address], [place], [address], [facility] 2 19:53:11 Essential hypertension 06343879 Active 2021 Dalton Lucia MD [address], [place], [address], [facility] 2 19:53:36 Asthma 436140487 Active 2021 Dalton Lucia MD [address], [place], [address], [facility] 2 19:53:38 Deep venous thrombosis 897818605 Active 2021 Dalton Lucia MD [address], [place], [address], [facility] 2 19:53:40 Problem Notes None recorded. Medical Equipment None Reported. Allergies Allergen ID Allergen Name Allergen Category Reaction Reaction Severity Criticality Documentation Date Start Date Code Code System Note Provider Name and Address Organization Details Recorded Time 95549 Flagyl medicatio n Not available Not available Not available 10/06/2021 6 RxNorm Isabella Sher [facility] 2 16:14:36 Medications Name Sig Start [...] Updated DateTime 10/06/2021 160.02 cm 45.2 kg/m2 512700.0 5 g 147/91 mm[Hg] 140/84 mm[Hg] Isabella Sher [facility] 2 17:25:03 Social History None recorded. Functional Status None recorded. Mental Status None recorded. Family History Nothing Reported. Medical History No medical history recorded. Gynecological HistoryNo gynecological history recorded. Obstetrics History GPAL:G 0 P 0 0 0 0 Past Encounters Encounter ID Performer Location Encounter Start Date Encounter Closed Date Diagnosis/Indication Diagnosis SNOMED-CT Code Diagnosis ICD10 Code Diagnosis IMO Codes Diagnosis Note [id number] Dalton Lucia MD [place] [address] [address] 10/06/2021 15:44:41 10/08/2021 13:53:08 Gynecologic examination 23344093 Z01.419 Obesity 505484830 E66.9 This patient is a 46-year-ol d [...] in 2 weeks. Non-alcoho lic fatty liver 642400126 K76.0 Cardiac arrhythmia 23616 7007 I49.9 Essential hypertension 55893427 I10 Asthma 956345202 J45.90 9 Deep venou s thrombosis 862552942 I82.409 Health Concerns Section Related Observation LastModified by Organization Detina ls LastModified Time None Recorded Concern Status LastModified by Organization Details LastModified Time None Recorded Advance Directives Directive None Recorded Payers Insurance Date Sequence Insurance Name Policy Number Policy Navarro Covered Member ID Navarro Member ID Guarantor Name 11/07/2021 1 KENISHA (POS II) [id number] Herbert Valentine [id number] Jamee Gold Serge Notes Date Note [...] anger. She likes she can tenderness and Lithuanian fries, pizza send Blizzard. She has she [...] ideation. Dalton Lucia MD [address], [place], [address], [facility] 10/07/2021 19:54:02 OBGyn Episode No OBEpisode recorded.
--- OUTSIDE RECORDS SUMMARY | 2025-06-26 18:00 | XMS_ITS | Clinical Summary ---
Author Organization [facility] Address [address] [facility] [place] [address] Care Team Providers Care Chemist Proteins Name Role Phone Unavailable Primary Care Provider Unavailabl e Source Comments [facility],non-owned Affiliates and Associated Physician Practices is amultiple site organization consisting of ambulatory clinics and hospital sitesin [place], [place], [place] and [place]. This disclosure is being madepursuant to the Care Everywhere program and may not contain all information available regarding this patient. Last updated 18.[facility] Allergies Active Allergy Reactions Criticality Noted Date [...] Years Used Date Smoking Tobacco: Former Cigarettes 5 1 - 1996 Smokeless Tobacco: Never Alcohol Use Standard Drinks/Week Comments Yes 0 (1 standard drink = 0.6 oz pur e alcohol) Comments No Sex and Gender Information Value Date Recorded Sex Assigned at Not on file Legal Sex Female 3:41 PM BLEACH MIXER Gender Identity Not on file Sexual Orientation Not on file Last Filed Vital Signs Vital Sign Reading Time Taken Comments Blood Pressure 138/86 09/05/2018 2:40 PM BLEACH M[employer]ER Pulse 74 09/05/2018 2:40 PM BLEACH M[employer]ER Temperature 37 C (98.6 F) 09/05/2018 2:40 PM BLEACH MIXER Respiratory Rate 16 09/05/2018 2:40 PM BLEACH MIXER Oxygen Saturation 99% 09/05/2018 2:40 PM BLEACH MIXER Inhaled Oxygen Concentration - - Weight 93.9 kg (207 lb) 09/05/2018 2:40 PM BLEACH MIXER Height 162.6 cm (5' 4) 09/05/2018 2:40 PM BLEACH MIXER Body Mass Index 35.53 09/05/2018 2:40 PM BLEACH MIXER Plan of Treatment Health Maintenance Due Date [...] patient's age to complete this topic Insurance [facility]
--- OUTSIDE RECORDS SUMMARY | 2025-06-26 18:00 | XMS_ITS | Encounter Summary ---
Author Organization [facility] Address [address] [place] [address] Care Team Providers Care Business Development Recruiter Name Role Phone Miguel Fleming MD Primary Care Provider [phone] Encounter Details Date Type Department Care Team (Late st Contact Info) Description 05/16/2020 Lab Requisition [facility] [employer] [facility] [address] [place] [address] [place] [address] [facility] [address] [place] [address] Encounter for pre-employment examination Social History Tobacco [...] Immune - Positive 05/17/2020 12:38 PM CDT [facility] [employer] [facility] VARICELLA IGG INDEX 2.43 05/17/2020 12:38 PM CDT [facility] Comment: Nonimmune - Negative <0.60 AI Equivocal 0.60 - 0.89 AI Immune - Positive >0.89 AI Blood Collection / Unknown 05/16/2020 10:40 AM CDT 05/16/2020 12:53 PM CDT [facility] - 05/17/2020 12:38 PM CDT A positive result suggests response to immunization or prior exposure to the virus. Harjit Morrissey MD CHEMISTRY ORDERABLES Final R esult [facility] CLIA# [id number] [place] [address] * (ABNORMAL) HEPATITIS B SURFACE AB, QUANT (05/16/2020 10:40 AM CDT) HEPATITIS B SURF AB,QN <4.0 mlU/mL 05/16/2020 6:58 PM CDT [facility] HEPATITIS B SURFACE AB INTERP Non-reacti ve(A) See Interp 05/16/2020 6:58 PM CDT [facility] Blood Collection / Unknown 05/16/2020 10:40 AM CDT 05/16/2020 12:53 PM CDT [facility] - 05/16/2020 6:58 PM CDT Patient does not have immunity to Hepatitis B virus. This assay is used to determine immune status to Hepatitis B as greater than or equal to 10 mIU/mL as per CDC guidelines (MMWR:vol 55: RR-16, 2006). Harjit Morrissey MD CHEMISTRY ORDERABLES Final R esult [facility] CLIA# [id number] [address] [place] [address] documented in this encounter Visit Diagnoses Diagnosis Encounter for pre-employment examination Health examination of defined subpopulation documented in this encounter Care Teams Business Development Recruiter Relationship Specialty Start Date End Date Miguel Fleming MD [address] [place] [address] PCP - General Family Practice 10/03/20 documented as of this encounter
--- OUTSIDE RECORDS SUMMARY | 2025-06-26 18:00 | XMS_ITS | Data Portability ---
Author Organization [place] [facility] [employer], Main Office Address [address] [place] [address] Care Team Providers Care Health Navigator Name Role Phone KELSEA LOPEZ Primary Care Provider KELSEA LOPEZ Referring Provider [phone] Assessment Encounter Date Assessment Date Assessment LastModified [...] please contact patient to schedule 2022 023 [facility], [address], [place], [address], 3 11:45:28 Procedures injection/ aspiration joint/burs a (PROC) 2022 023 [email or web address] In-Office Order, Internal Use Only DO Not Attach Compendium DO Not Attach Compendium, Do Not Delete/merge, [address] 10:07:15 Surgeries None recorded. Imaging XR, hip + pelvis, unilateral 2022 023 [email or web address] [facility] [place], [address], [place], [address], 10:39:20 Medication Orders bupivacain e HCl 0.5 % (5 mg/mL) injection solution 2022 023 [email or web address] [facility]04841, [address], [place], [id number], 3 10:12:00 Kenalog 10 mg/mL suspension for injection 2022 023 [facility], [address], [place], [id number], 3 10:12:00 prednisone 10 mg tablets in a dose pack 2022 023 [facility], [address], [place], [id number], 3 16:55:25 Patient TargetsNo targets recorded. Patient InstructionsNo [...] unila teral No observ ation record ed. [id number] [facility] [place] [address], [place], [address], 10/13/2022 07:51:29 07/11/20 23 XR, hip + pelvi s, unila teral No observ ation record ed. [email or web address] [facility] [place] [address], [place], [address], 07/11/2023 10:39:19 Result Notes None recorded. Problems Name Problem SNOMED Code Status Onset Date Resolution Date Notes Provider Name and Address Organization Details Recorded Time Noninfecti ous gastroente ritis 73853653 Active Not Available [facility] 3 07:45:40 Anxiety disorder 654435369 Active Not Available [facility] 3 07:45:40 Current tear of medial cartilage AND/OR meniscus of knee Active Not Available [facility] 3 07:45:40 Acute pharyngiti s 561867338 Active Not Available [facility] 3 07:45:40 Osteoarthr itis 738083183 Active Not Available [facility] 3 07:45:40 Acute gastroente ritis 80850429 Active Not Available [facility] 3 07:45:40 Pain of right hip joint 6794640747009 02 Active 2021 Not Available [facility] 3 07:45:40 Trochanter ic bursitis of right hip 1969607975646 00 Active 2021 Not Available [facility] 3 07:45:40 Problem Notes None recorded. Procedures Surgical History Date Name Laterality Status Provider Name and Address Organization Details Recorded Time cholecystectomy completed RADHA Schneider [place] [facility] 07/11/2023 10:04:17 Appendectomy completed RADHA Amado [facility] 07/11/2023 10:04:30 Imaging Results None recorded. Procedure Notes None recorded. Medical Equipment None Reported. Allergies Allergen ID Allergen Name Allergen Category Reaction Reaction Severity Criticality Documentation Date Start Date Code Code System Note Provider Name and Address Organization Details Recorded Time 58814 Flagyl medicatio n rash Not available Not available 10/13/2022 6 RxNorm SWELL ING Not Available [facility] 3 07:51:16 27113 Wellbutri n medicatio n Not available Not available Not available 07/11/2023 60419 RxNorm menta olga Buckner, CATH LAB NURSE null, [place] [facility] [place] [facility] 3 09:58:36 Medications Name Sig Start Date Stop [...] 20 mg by injection route. 2022 active [facility]: 0003- 0494- 20 Not Available Not Available [...] administe red by the provider 01/04 completed [facility]: 0409- 4276- 17 Not Available Not Available [...] Updated DateTime 01/04/2022 41.5 kg/m2 162.56 cm 190059.82 g Not Available [facility] 10/13/2022 07:42:53 Date Recorded Body mass index (BMI) Body height Body weight Provider Name and Address Organization Details Last Updated DateTime 02/18/2022 41 kg/m2 162.56 cm 759434.58 g Not Available [facility] 10/13/2022 07:42:53 Date Recorded Body height Body mass index (BMI) Body weight Provider Name and Address Organization Details Last Updated DateTime 07/11/2023 162.56 cm 43.1 kg/m2 478492.4 g RADHA Amado - [place] [facility] 07/11/2023 10:09:41 Social History None recorded. Functional Status Question Answer Note LastModified by Organizat ion Details LastModified Time What is your level of alcohol consumption? 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 Family History Relationship Description Onset Age of this Age Resolved Age Notes LastModified by Organization Details LastModified Time Father Heart disease [id number] Not available 10/13/2022 07:41:21 Father Blood coagulation disorder [id number] Not available 10/13/2022 07:41:21 Mother Heart disease [id number].786 [id number] Not available 10/13/2022 07:41:21 Mother Family history of malignant neoplasm [id number] Not available 10/13/2022 07:41:21 Mother Diabetes mellitus [id number] [id number] Not available 10/13/2022 07:41:21 Father Hypertensive disorder [...] available 2022 10:02:38 Medical History Condition Response ULCERS Y USE OF NSAIDS Y Gynecological HistoryNo gynecological history recorded. Obstetrics History GPAL:G 0 P 0 0 0 0 Past Encounters Encounter ID Performer Location Encounter Start Date Encounter Closed Date Diagnosis/Indication Diagnosis SNOMED-CT Code Diagnosis ICD10 Code Diagnosis IMO Codes Diagnosis Note [id number] MD [facility] [place] [address] [place] [address] 01/04/2022 00:00:00 01/04/2022 11:49:54 [id number] Ollie Morrison MD [facility] [place] [address] [place] [address] 02/18/2022 00:00:00 02/18/2022 11:10:27 [id number] Harjit Cotto [facility] [place] [address] [place] [address] 07/11/2023 09:42:30 07/11/2023 10:37:20 Pain of right hip joint 9873879959 10293 M25.551 Trochanter ic bursitis of right hip 1864853593 69522 M70.61 Health Concerns Section Related Observation LastModified by Organization Detai ls LastModified Time None Recorded Concern Status LastModified by Organization Details LastModified Time None Recorded Advance Directives Directive None Recorded Payers Insurance Date Sequence Insurance Name Policy Number Policy Navarro Covered Member ID Navarro Member ID Guarantor Name 07/04/2023 1 [employer] (POS) [id number] Herbert Valentine [id number] Herbert Valentine 08/19/2023 1 [facility] Herbert Valentine [id number] Herbert Valentine Notes Date Note Type Note [...] detail today with the patient. HARDIK Garcia [address] [facility] [facility] [address], [place], [address], [facility] 07/11/2023 10:40:09 OBGyn Episode No OBEpisode recorded.
[2025-06-26 18:09] VITALS: BP 147/83; PULSE 101; RESP 16; TEMP 36.4; O2SAT 99
[2025-06-26 18:30] LABS: EDCOVIDSCREEN Negative (Negative)
[2025-06-26 18:31] LABS: EDINFLUASCREEN Negative (Negative); EDINFLUBSCREEN Negative (Negative); EDSTREPNEGPOS1 Positive (Negative)
--- NOTE | 2025-06-26 18:42 | ED_ITS ---
HPI - URI/Sore Throat General Chief Complaint: Upper Respiratory Infection Stated Complaint: Sore throat Time Seen by Provider: 06/26/25 18:35 Source: patient and RN notes reviewed Mode of arrival: ambulatory Limitations: no limitations History of Present Illness HPI Narrative: 50-year-old female presents Express Care complaining of sore throat bilateral ear pain since yesterday. Patient has tried [id number] cold and flu medications without relief. Patient denies any other upper respiratory symptoms, fevers, eczema chills, nausea vomiting, diarrhea, chest pain difficulty breathing, difficulty clearing secretions, dysphagia, or any other symptoms. Patient denies any significant past medical problems. Related Data Home Medications ?Medication ?Instructions ?Recorded ?Confirmed ?Last Taken ?Type drospirenone (contraceptive) 4 mg 1 tablet PO DAILY 06/19/25 05/31/23 16:00 History (28) tablet (Slynd) cetirizine 10 mg capsule (Zyrtec) 10 mg PO DAILY PRN 0 10/22/24 06/19/25 Unknown History multivitamin 1 tablet PO DAILY 04/02/25 1 08/19/24 Unknown History omeprazole 40 mg capsule,delayed 40 mg PO DAILY PRN 06/19/25 Unknown History release Allergies Allergy/AdvReac Type Severity Reaction Status Date / Time bupropion (From Wellbutrin) Allergy Intermediate Confusion Verified 06/26/25 18:09 Corticosteroids Allergy Unknown HIVES Verified 06/26/25 18:09 (Glucocorticoids) metronidazole (From Flagyl) Allergy Swelling Verified 06/26/25 18:09 of Lip/Tongue/Throat tirzepatide (From Mounjaro) AdvReac Severe Vomiting Verified 06/26/25 18:09 Review of Systems Review of Systems: CONSTITUTIONAL: Denies fever, chills, or sweats. EYES: Denies visual changes, redness, or discharge. ENT: Denies rhinorrhea, congestion. Positive for sore throat and otalgia. CARDIOVASCULAR: Denies chest pain, palpitations, or edema. RESPIRATORY: Denies cough or dyspnea. GASTROINTESTINAL: Denies abdominal pain, nausea, vomiting, or diarrhea. GENITOURINARY: Denies dysuria or hematuria. SKIN: Denies rash or itching. MUSCULOSKELETAL: Denies back pain, joint pain, or myalgia. NEUROLOGIC: Denies headache, numbness, or weakness. PSYCHIATRIC: Denies anxiety or depression. All other systems reviewed are negative, except as documented in HPI. [facility] Past Medical History Medical History Trochanteric bursitis of right hip Bilateral thumb pain Axillary pain Strain of right trapezius muscle Rhomboid muscle strain Costochondritis, acute Acute appendicitis Eustachian tube dysfunction Symptomatic PVCs Complicated grieving Local reaction to COVID-19 vaccine Morbid obesity with BMI of 40.0-44.9, adult Right knee pain Ankle sprain Adult celiac disease Celiac disease Serous otitis media Trigger thumb Leg pain, left Morbid obesity COVID-19 Dyspnea BMI greater than 40 Bowel disease Cholecystectomy planned Laparoscopic: 08/01/16 PCOS (polycystic ovarian syndrome) Ulnocarpal impaction syndrome Interstitial cystitis Anxiety Allergies Migraine Asthma Surgical History Surgical History History of laparoscopic appendectomy History of cholecystectomy Family History Family History Father Hypertension Heart disease Rheumatoid arthritis COPD (chronic obstructive pulmonary disease) Sibling Hypertension Mother Hypertension Heart disease Glioblastoma Other Cerebrovascular accident Diabetes mellitus Family history of allergic disorder Family history of type 2 diabetes mellitus Social History Social History Tobacco type: cigarettes Second hand tobacco smoke exposure: No Alcohol intake: current Drinks per week: 3 Alcohol use details: Pt drinks socially. Substance use: never Substance use type: does not use Do You Feel Safe in your Home?: Yes Lack of Transportation: No Lack of Food: Never True Current Housing: I Have Housing Concerned About Future Housing: No Difficulty Paying Gas/Electric Bills: No Difficulty Paying for Meds: No Currently Unemployed: No Education: Bachelor's Degree Difficulty w/ Childcare or Family Care: No Living arrangements: with family Occupation/Education: occupation Additional occupation/education comments: Realtor Gender identity (if verbalized by the patient): Female Spiritual care concerns: No Comments At the time of my signature, I reviewed and agree with the nursing past medical, surgical, social, and family history. There is no relevant family history pertinent to the patient complaint. Exam Narrative: GENERAL: This is a well-nourished, well-developed adult, in no apparent distr ess. They are non ill-appearing, nontoxic appearing. HEAD: normocephalic, atraumatic. EYES: Sclera clear/white. Conjunctiva normal. Vision is grossly intact. Extraocular movements intact EARS: External ears normal, auditory canals clear and without drainage, TMs normal without perforation. Hearing grossly intact. NOSE: External nose normal with no obvious nasal discharge, nasal turbinates wit hout redness, no rhinorrhea. THROAT: Mucous membranes moist, posterior pharynx erythematous without exudate. Uvula midline. NECK: Neck supple, mild cervical lymphadenopathy, no masses or thyromegaly. CARDIOVASCULAR: Regular rate and rhythm without murmurs, gallops, or rubs. RESPIRATORY: Clear to auscultation. Breath sounds equal bilaterally. No wheezes, rales, or rhonchi. SKIN: warm, Dry, intact with no suspicious lesions or rash, good texture and turgor. NEURO: awake, alert, and oriented to person, place and time. There were no obvious focal neurologic abnormalities. EXTREMITIES: No joint tenderness, effusion, or edema noted. BACK: Nontender without deformity. Course Course Emergency Course: Portions of this record may have been created with voice recognition software Level of Care: Express Care Visit Vital Signs Vital signs: Vital Signs Temperature 97.6 F 06/26/25 18:09 Pulse Rate 101 H 06/26/25 18:09 Respiratory Rate 16 06/26/25 18:09 Blood Pressure 147/83 H 06/26/25 18:09 Pulse Oximetry 99 06/26/25 18:09 Oxygen Delivery Room Air 06/26/25 18:09 Temperature 97.6 F 06/26/25 18:09 Pulse Rate 101 H 06/26/25 18:09 Respiratory Rate 16 06/26/25 18:09 Blood Pressure 147/83 H 06/26/25 18:09 Pulse Oximetry 99 06/26/25 18:09 Oxygen Delivery Room Air 06/26/25 18:09 Reviewed MDM - URI/Sore Throat MDM Narrative Medical decision making narrative: Rapid COVID and flu were negative. Rapid strep is positive. Symptoms consistent with strep pharyngitis. Will treat with amoxicillin. Discussed physical exam findings. Advised supportive measures and signs/symptoms to go to the ER. Pt is appropriate for outpt treatment and f/u. Differential Diagnosis Differential diagnosis: Likely upper respiratory infection, sinusitis, viral infection and pharyngitis Lab Data Attestation: I reviewed the patient's lab results. Labs: Lab Results 06/26/25 Range/Units 18:05 POC Influenza A Ag Negative (Negative) POC Influenza B Ag Negative (Negative) POC SARS CoV-2 Ag Negative (Negative) POC Grp A Strep Screen Positive (Negative) Critical Care Time Critical Care Time Critical Care Time: No Discharge Plan Discharge Clinical Impression: Pharyngitis Qualifiers: Pharyngitis/tonsillitis etiology: streptococcus Qualified Code(s): J02.0 - Streptococcal pharyngitis Patient Disposition: Home Condition: Stable Instructions: Antibiotic Form, Strep Throat (ED) Additional Instructions: You tested positive for strep throat. ?Please take the amoxicillin as prescribed until gone. ?You will be contagious for 24 hours after starting the medication. ?After 24 hours on antibiotics throw tooth brush away and start using a new one. Wash your sheets and cup/water bottle that is used daily. Do not share drinks. Take Tylenol or Ibuprofen for pain or fever, if able. ?Rest and stay hydrated. ?Follow up with your PCP in 3 days if symptoms are not improving. ?Go to the ER immediately if you develop worsening symptoms such as shortness of breath, difficulty swallowing. ? Patient Language: Croatian Prescriptions: New fluconazole 150 mg tablet 150 mg PO Q72H Qty: 2 0RF Rx Instructions: May repeat dose in 72 hours if symptoms persist. amoxicillin 500 mg tablet 500 mg PO Q12H 10 Days Qty: 20 0RF No Action Zyrtec 10 mg capsule 10 mg PO DAILY PRN albuterol sulfate 90 mcg/actuation HFA aerosol inhaler 2 inh inhalation Q4H PRN (Reason: shortness of breath or wheezing) Qty: 6.7 3RF multivitamin Tablet 1 tablet PO DAILY omeprazole 40 mg capsule,delayed release(DR/EC) 40 mg PO DAILY PRN Slynd 4 mg (28) Tablet 1 tablet PO DAILY clobetasol 0.05 % solution 1 applic topical BID PRN (Reason: dermatitis) Qty: 50 1RF escitalopram oxalate 20 mg tablet See Rx Instructions .ROUTE .COMPLEX Qty: 90 2RF Dose Instruction: TAKE 1 TABLET BY MOUTH EVERY DAY Rx Instructions: TAKE 1 TABLET BY MOUTH EVERY DAY Follow-up/Referrals: Miguel Fleming MD [Primary Care Provider, [facility]] Time of Disposition: 18:41
== END 2025-06-26 18:46 | disposition home or self-care (01) ==
PROVIDERS: PCP Family Medicine
DX: J02.0 Streptococcal pharyngitis (principal); Z20.822 Contact with and (suspected) exposure to COVID-19
CPT/HCPCS: 87426; 87804; 87880; 99213; G0463